=== PATIENT | female | born 1955 | race Caucasian/White ===

== ENCOUNTER 2020-01-14 10:55 | Outpatient (CLI) | payer MEDICARE, MEDICAID, SELFPAY ==
--- NOTE | 2020-01-14 11:00 | CT_ITS ---
WS: [id number] CT CHEST TECHNIQUE: Noncontrast CT of the chest with coronal and sagittal reformatted images. CLINICAL INFORMATION: CHRONIC COUGH COMPARISON: None. DLP: 353.[address] scans at [facility] use at least one of these dose optimization techniques: automat ed exposure control; mA and/or kV adjustment per patient size (includes targeted exams where dose is matched to clinical indication); or iterative reconstruction. FINDINGS: Mild chronic emphysematous changes. Tiny bilateral pleural effusions with slight atelectasis in the l ewelina bases. No acute pulmonary infiltrates. No focal consolidation. No mediastinal or hilar lymphadeno bronwyn. No axillary lymphadenopathy. Slightly ectatic aortic arch measuring 2.8 cm. Normal ascending t horacic aorta. Normal descending thoracic aorta. Normal GE junction. Low-attenuation lesion right hep atic lobe likely hepatic cyst measuring [address]/CT chest wo con [id number] IMPRESSION: 1. Mild chronic emphysematous changes. 2. Trace pleural fluid bilaterally with slight atelectasis in the lung bases. 3. No focal pneumonia. 4. No mediastinal or hilar lymphadenopathy. 5. Slightly ectatic aortic arch measuring 2.8 cm.
== END 2020-01-14 10:56 | disposition home or self-care (01) ==
PROVIDERS: Family Provider Family Medicine; PCP Family Medicine; Visit Provider Family Medicine
DX: R05 Cough (principal); I77.819 Aortic ectasia, unspecified site
CPT/HCPCS: 71250

== ENCOUNTER 2020-01-28 11:07 | Emergency (ER) | payer MEDICARE, MEDICAID, SELFPAY ==
[2020-01-28 11:10] VITALS: BP 134/77; PULSE 109; RESP 18; TEMP 36.8; O2SAT 93; BMI 27.4
--- NOTE | 2020-01-28 11:48 | XRR_ITS ---
PROCEDURE INFORMATION: Exam: XR Chest, 2 Views Exam date and time: 01/28/2020 12:16 PM Age: 64 years old Clinical indication: Cough TECHNIQUE: Imaging protocol: XR of the chest Views: 2 views. COMPARISON: No relevant prior studies available. FINDINGS: Lungs: Emphysematous change, interstitial prominence, and mild left basilar airspace disease. Pleural space: No pleural effusion. Heart/Mediastinum: No cardiomegaly. Bones/joints: Mild degenerative change . Other findings: Tracheobronchial calcification . XR/XR chest 2V* [id number] IMPRESSION: Emphysematous change, interstitial prominence, and mild left basilar airspace disease.
--- NOTE | 2020-01-28 12:18 | ECG_ITS ---
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 Measurements Intervals [place] Rate: 93 P: 50 [place]: 186 QRS: -26 QRSD: 96 T: 62 QT: 362 QTc: 451 Interpretive Statements SINUS RHYTHM BORDERLINE LEFT AXIS DEVIATION [QRS AXIS < -20] MINIMAL VOLTAGE CRITERIA FOR LVH, CONSIDER NORMAL VARIANT [MEETS CRITERIA IN ONE OF: R(aVL), S(V1), R(V5), R(V5/V6)+S(V1)] NONSPECIFIC T-WAVE ABNORMALITY No previous ECG available for comparison Electronically Signed On 01-28-2020 18:26:39 CDT by Lexus Marin M.D. [id number]
--- NOTE | 2020-01-28 12:19 | ED_ITS ---
HPI - SOB/Dyspnea General: Chief Complaint: Shortness of Breath/Dyspnea Stated Complaint: cough Time Seen by Provider: 01/28/20 12:17 Source: patient Mode of arrival: ambulatory Limitations: no limitations History of Present Illness: HPI Narrative: Patient comes in with persistent cough for the last month. Patient has been evaluated by pulmonology for her concerns and has also seen her primary care starting about a month ago. Patient and spouse both report seeing someone about 5 times. Patient appears well. Patient appears in no acute distress. Review of Systems General: Reports: 10 or more systems reviewed and unremarkable except in HPI and below Resp: Reports: non-productive cough PFS ED PFSH: Medical History (Updated 01/28/20 @ 13:33 by DONNA Crabtree) Anxiety Cataract Depression Diabetes mellitus Fibromyalgia GERD (gastroesophageal reflux disease) Hyperlipidemia Hypotension Idiopathic Parkinson's disease Paroxysmal supraventricular tachycardia TMJ (temporomandibular joint disorder) Tremor Trochanteric bursitis of right hip Surgical History H/O dilation and curettage H/O tubal ligation History of appendectomy History of cholecystectomy History of hysterectomy Hx of cataract surgery Family History Grandmother Diabetes Social History Smoking and tobacco status: never smoked Second hand smoke exposure: Yes Alcohol intake: never Lives independently: Yes Household members: spouse Marital status: Current occupational status: disabled History of recent travel: No Current gender identity: Female Physical Exam Const: COMMON NORMALS: no acute distress and patient oriented x3 GENERAL APPEARANCE: cooperative HENMT: COMMON NORMALS: normocephalic and Normal external nose present HEAD & SCALP: normal to inspection and normocephalic NOSE: Normal external nose present MOUTH: Normal oral and palatal mucosa present THROAT: posterior oropharynx normal Eye: GENERAL EYE: appearance normal, both eyes and all related structures Neck/C-Spine: COMMON NORMALS: full ROM Lymph: LYMPHATIC: no lymphadenopathy noted Chest: COMMONS NORMALS: normal inspection of the chest Resp: COMMON NORMALS: normal respiratory effort EFFORT & INSPECTION: Yes able to speak in complete sentences Cardio: COMMON NORMALS: regular rate and regular rhythm RATE: regular rate RHYTHM: regular rhythm GI: COMMON NORMALS: non-tender : COMMON NORMALS: Yes no CVA tenderness BLADDER/KIDNEY EXAM: Yes no CVA tenderness Back/Pelvis: COMMON NORMALS: no CVA tenderness and thoracic and lumbar spine normal to inspection Extremity: COMMON NORMALS: normal to inspection Neuro: COMMON NORMALS: patient oriented x3 and moves all extremities Psych: COMMON NORMALS: mental status grossly normal and cooperative Skin: COMMON NORMALS: no rashes or lesions noted GENERAL SKIN EXAM: no rashes or lesions noted Course Vital Signs: Vital signs: Vital Signs Temperature 98.3 F 01/28/20 11:10 Pulse Rate 109 H 01/28/20 11:10 Respiratory Rate 18 01/28/20 11:10 Blood Pressure 134/77 01/28/20 11:10 Pulse Oximetry 93 01/28/20 11:10 MDM - SOB/Dyspnea MDM Narrative: Medical decision making narrative: Patient comes in today for persistent cough over the last month. Patient has been treated with azithromycin and a previous antibiotic without much relief. Patient is also seen the home day care provider and has thought to have may be a viral bronchitis that is persisting with the cough or possible reflux. Exam today notes some crackles in the left base, heart rates regular. Vital signs are normal. Skin is warm and dry color is pink. Differential diagnosis includes CHF, pneumonia, viral bronchitis, lower respiratory infection. Chest x-ray noted a airspace disease in the left lower lung which review to the previous months x-ray was kind of similar but had made some changes since then. However review of the CT scan done on the that noted no pneumonia. I suspect patient may have had a bout of pneumonia in that left lower lung however it may just be secondary to a viral respiratory infection. Today I will give the patient 10 mg of dexamethasone to help with inflammation start her on some ipratropium which is been shown to help with chronic persistent cough after viral bronchitis, and treat with 7 days of doxycycline due to the abnormality in the chest x-ray. Patient reported understanding and agreed to plan with recommendations for follow-up in 1 week. Lab Data: Labs: Lab Results 01/28/20 01/28/20 01/28/20 Range/Units 12:25 12:25 12:25 WBC 9.7 (4.0-10.0) 10^3/ uL RBC 4.03 L (4.1-5.3) 10^6/u L Hgb 12.2 (11.5-15.3) g/dL Hct 38.8 (37.0-47.0) % MCV 96.3 (81-99) fL MCH 30.3 (28.0-34.0) pg MCHC 31.4 (30.0-36.0) g/dL RDW 14.3 (12.1-15.1) % Plt Count 257 (130-400) 10^3/c mm MPV 11.5 H (7.4-10.4) fL Neut % (Auto) 78.0 % Lymph % (Auto) 12.9 % [place] % (Auto) 6.0 % Eos % (Auto) 2.5 % Baso % (Auto) 0.3 % Neut # (Auto) 7.6 (1.8-7.7) 10^3/u L Lymph # (Auto) 1.3 (0.8-4.8) 10^3/u L [place] # (Auto) 0.6 (0.2-0.9) 10^3/u L Eos # (Auto) 0.2 (0.0-0.8) 10^3/u L Baso # (Auto) 0.0 (0.0-0.1) 10^3/u L Nucleated RBC % (a uto) 0 % Nucleated RBCs # 0.0 /100WBC Sodium 145 (136-145) mmol/L Potassium 4.2 (3.5-5.1) mmol/L Chloride 106 (98-107) mmol/L Carbon Dioxide 24 (22-29) mmol/L Anion Gap 19.2 H (5-19) BUN 19 (8-23) mg/dL Creatinine 0.6 (0.5-0.9) mg/dL GFR Calculation 100.3 (90-130) mL/min Glucose 182 H (65-115) mg/dL Calculated Osmolal ity 301 H (285-295) mOsm/k g Calcium 10.3 (8.5-10.5) mg/dL Magnesium 1.7 (1.7-2.3) mg/dL Total Bilirubin 0.3 (0.15-1.2) mg/dL AST 19 (0-32) U/L ALT 10 (0-33) U/L Alkaline Phosphata se 48 (35-105) IU/L Troponin T Baselin e 6 (0-10) ng/L NT-Pro-B Natriuret Pep 31 (0-125) pg/mL Total Protein 7.0 (6.6-8.7) g/dL Albumin 5.1 (3.5-5.2) g/dL Globulin 1.9 (1.3-4.6) g/dL TSH 1.44 (0.27-4.20) uIU/ mL EKG Data^: EKG 1: Attestation: I personally reviewed and interpreted this EKG as follows: (1300, sinus rhythm, regular rate 93 bpm, no ectopy or ST elevation) Discharge Plan Discharge Patient Disposition: Home, Self-Care Clinical Impression: Chronic cough, Bronchitis Condition: Stable Prescriptions: New Atrovent HFA 17 mcg/actuation HFA aerosol inhaler 2 inh INHALATION Q6H Qty: 12.9 RF: 0 doxycycline hyclate 100 mg capsule 100 mg PO BID 7 Days Qty: 14 RF: 0 Tessalon Perles 100 mg capsule 100 mg PO TID PRN (Reason: cough) Qty: 20 RF: 0 No Action cetirizine [All Day Allergy (cetirizine)] 10 mg tablet 5 mg PO DAILY RF: 0 Belsomra 10 mg tablet 10 mg PO DAILY RF: 0 metformin 500 mg tablet 500 mg PO BID RF: 0 pregabalin [Lyrica] 100 mg capsule 100 mg PO TID RF: 0 digoxin [Lanoxin] 125 mcg (0.125 mg) tablet 125 mcg PO DAILY RF: 0 gemfibrozil 600 mg tablet 600 mg PO BID RF: 0 carbidopa-levodopa 50-200 mg tablet extended release 2 tab PO BID RF: 0 paroxetine HCl 20 mg tablet 20 mg PO DAILY RF: 0 Lantus Solostar U-100 Insulin 100 unit/mL (3 mL) insulin pen 20 unit SUBCUT DAILY RF: 0 albuterol sulfate [ProAir HFA] 90 mcg/actuation HFA aerosol inhaler 2 puff INHALATION Q6H PRNRF: 0 promethazine-DM 6.25-15 mg/5 mL syrup 10 ml PO Q6H PRNRF: 0 alprazolam 1 mg tablet 1 mg PO TID PRNRF: 0 quetiapine [Seroquel] 25 mg tablet 50 mg PO DAILY RF: 0 flecainide 50 mg tablet 50 mg PO Q12H RF: 0 omeprazole 20 mg capsule,delayed release(DR/EC) 20 mg PO BID 90 Days Qty: 180 RF: 3 Discharge Orders: Discharge Order (Routine); Ordered 01/28/20 Ordered By: Brian Zabala Referrals: Mannie Hart MD [Primary Care Provider] - Discharge Diet: Usual diet Discharge Activity: Increase activity as tolerated Patient Instructions: Acute Cough (ED) Activity Restrictions/Additional Instructions: Drink plenty of fluids with medication. Healthy diet and activity. Follow-up with primary care in 1 week. Return to the ER for high fever or worsening shortness of breath. Coding Level of Care Code ED Side Splitter for Zaida Mead Exam Comprehensive
[2020-01-28 12:33] LABS: Basophils % 0.3 %; Eosinophils # 0.2 10^3/uL (0.0-0.8); Eosinophils % 2.5 %; Hematocrit 38.8 % (37.0-47.0); Hemoglobin 12.2 g/dL (11.5-15.3); Lymphocytes # 1.3 10^3/uL (0.8-4.8); Lymphocytes % 12.9 %; Mean Corpuscular HGB Conc 31.4 g/dL (30.0-36.0); Mean Corpuscular Hemoglobin 30.3 pg (28.0-34.0); Mean Corpuscular Volume 96.3 fL (81-99); Mean Platelet Volume 11.5 fL (7.4-10.4); Monocytes # 0.6 10^3/uL (0.2-0.9); Neutrophils # 7.6 10^3/uL (1.8-7.7); Nucleated Red Blood Cells % 0 %; Platelet Count 257 10^3/cmm (130-400); Red Blood Count 4.03 10^6/uL (4.1-5.3); Red Cell Distribution Width 14.3 % (12.1-15.1); White Blood Count 9.7 10^3/uL (4.0-10.0)
[2020-01-28 12:52] LABS: Troponin(5th) Baseline 6 ng/L (0-10)
[2020-01-28 12:59] LABS: Alanine Aminotransferase 10 U/L (0-33); Albumin Level 5.1 g/dL (3.5-5.2); Alkaline Phosphatase 48 IU/L (35-105); Anion Gap 19.2 (5-19); Aspartate Amino Transferase 19 U/L (0-32); Blood Urea Nitrogen 19 mg/dL (8-23); Calcium 10.3 mg/dL (8.5-10.5); Carbon Dioxide 24 mmol/L (22-29); Chloride 106 mmol/L (98-107); Globulin 1.9 g/dL (1.3-4.6); Glomerular Filtration Rate 100.3 mL/min (90-130); Glucose 182 mg/dL (65-115); Magnesium 1.7 mg/dL (1.7-2.3); NT Pro B Type Natriuretic Pept 31 pg/mL (0-125); Osmolality Calculated 301 mOsm/kg (285-295); Potassium 4.2 mmol/L (3.5-5.1); Sodium 145 mmol/L (136-145); Thyroid Stimulating Hormone 1.44 uIU/mL (0.27-4.20); Total Bilirubin 0.3 mg/dL (0.15-1.2)
[2020-01-28] MEDS: dexamethasone 10 mg/mL INJ IM (13:45)
[2020-01-28 14:12] VITALS: BP 136/74; PULSE 72; RESP 18; O2SAT 98
== END 2020-01-28 14:14 | disposition home or self-care (01) ==
PROVIDERS: Emergency Medicine; Emergency Provider Nurse Practitioner Family; Family Provider Family Medicine; PCP Family Medicine
DX: J40 Bronchitis, not specified as acute or chronic (principal); Z79.4 Long term (current) use of insulin; E11.9 Type 2 diabetes mellitus without complications; E78.5 Hyperlipidemia, unspecified; G20 Parkinson's disease; Z77.22 Contact with and (suspected) exposure to environmental tobacco smoke (acute) (chronic)
CPT/HCPCS: 12345; 36415; 71046; 80053; 83735; 83880; 84443; 84484; 85025; 93005; 96372; 99282; 99284; J1100

== ENCOUNTER 2020-02-14 11:20 | Outpatient (CLI) | payer MEDICARE, MEDICAID, SELFPAY ==
--- NOTE | 2020-02-14 11:30 | FL_ITS ---
WS: [id number] MODIFIED BARIUM SWALLOW HISTORY: Chronic cough. FLUOROSCOPY TIME: 1.8 minutes. Modified barium swallow was performed by the speech pathologist. Fluoroscopy was provided with the pa tient in a lateral projection. Multiple food consistencies were provided. Patient swallowed all food consistencies and barium without difficulty. No aspiration. Possible laryn geal penetration noted but very briefly. Barium tablet was swallowed without difficulty. FL/FL barium swallow modifd [id number] IMPRESSION: No aspiration. No significant swallowing difficulties. Please see speech therapist report also for recommendations.
== END 2020-02-14 11:21 | disposition home or self-care (01) ==
LOC: RAD 11:23
PROVIDERS: Family Provider Family Medicine; PCP Family Medicine; Visit Provider Internal Medicine Critical Care Medicine
DX: R05 Cough (principal)
CPT/HCPCS: 74230; 92611

== ENCOUNTER 2020-09-04 05:39 | Inpatient (IN) | payer MEDICARE, MEDICAID, SELFPAY ==
[2020-09-04] VITALS (16 sets, daily range): BP systolic 94–128; BP diastolic 53–64; PULSE 65–87; RESP 14–18; TEMP 36.4–37; O2SAT 89–95; BMI 27.4
--- NOTE | 2020-09-04 05:45 | XR_ITS ---
WS: [id number] Exam: XR chest 1V portable [id number] Date/Time of Exam: 09/04/2020 6:18 AM Reason For Exam: cp Comparison 12/24/2019. The lungs are fully expanded and clear. Chronic changes in the left base. No pleural effusions. Irina l cardiomediastinal structures and bony elements. Monitoring leads superimpose the chest. XR/XR chest 1V portable [id number] IMPRESSION: 1. Chronic left basal changes. No acute process noted.
--- NOTE | 2020-09-04 05:45 | ECG_ITS ---
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 Measurements Intervals [place] Rate: 62 P: 19 UT: 199 QRS: -23 QRSD: 84 T: 79 QT: 418 QTc: 425 Interpretive Statements SINUS RHYTHM WITH SINUS ARRHYTHMIA BORDERLINE LEFT AXIS DEVIATION [QRS AXIS < -20] NONSPECIFIC T-WAVE ABNORMALITY Compared to ECG 01/28/2020 12:55:01 No significant changes Electronically Signed On 09-04-2020 18:03:14 CARDIOPULMONARY SUPERVISOR by Yris Whiting M.D. [id number] f
[2020-09-04 05:51] LABS: Basophils % 0.2 %; Eosinophils # 0.4 10^3/uL (0.0-0.8); Hematocrit 42.2 % (37.0-47.0); Hemoglobin 13.1 g/dL (11.5-15.3); Lymphocytes # 1.8 10^3/uL (0.8-4.8); Lymphocytes % 21.2 %; Mean Corpuscular Hemoglobin 29.1 pg (28.0-34.0); Mean Corpuscular Volume 93.8 fL (81-99); Mean Platelet Volume 11.3 fL (7.4-10.4); Monocytes # 0.4 10^3/uL (0.2-0.9); Monocytes % 4.4 %; Neutrophils # 6.07 10^3/uL (1.8-7.7); Neutrophils % 70.1 %; Nucleated Red Blood Cells % 0 %; Platelet Count 238 10^3/cmm (130-400); Red Cell Distribution Width 13.2 % (12.1-15.1); White Blood Count 8.7 10^3/uL (4.0-10.0)
--- NOTE | 2020-09-04 05:51 | ED_ITS ---
HPI - Chest Pain General: Chief Complaint: Chest Pain Stated Complaint: CHEST PAIN Time Seen by Provider: 09/04/20 05:44 History of Present Illness: HPI narrative: 65 yo female presents with complaints of chest pain. Pain begins in his center to the left side of her chest and radiates into her back it does not go into her neck or arm. She still has a little bit of discomfort now for the most part is resolved she has had a couple other episodes in the past few days. She not had any fever sweats or chills nausea vomiting or diarrhea or shortness of breath. MD complaint: chest heaviness and chest discomfort Onset (ago): hour(s) Timing of current episode: episodic Onset: during rest Pain location: left chest Pain radiation: back Severity: moderate Quality: heaviness Relieving factors: nothing Exacerbating factors: nothing Associated symptoms: Deny abdominal pain, diaphoresis, dyspnea, fever(s), leg edema, nausea, palpitations, sense of impending doom, syncope or vomiting Treatment prior to arrival: none Review of Systems Const: Denies: fever(s) or diaphoresis ENMT: Denies: throat pain, ear or mastoid pain, nasal discharge or nasal co ngestion Card: Denies: palpitations or syncope Resp: Denies: dyspnea GI: Denies: abdominal pain, nausea or vomiting : Denies: flank pain, difficulty voiding, dysuria, urinary frequency or urinary urgency Skin/Breast: Denies: rash or pruritus [facility] ED PFSH: Medical History Anxiety Cataract Chronic cough Depression Diabetes mellitus Diabetic neuropathy Fibromyalgia GERD (gastroesophageal reflux disease) Hyperlipidemia Hypotension Idiopathic Parkinson's disease Insomnia Paroxysmal supraventricular tachycardia SVT (supraventricular tachycardia) TMJ (temporomandibular joint disorder) Tremor Trochanteric bursitis of right hip Surgical History H/O dilation and curettage H/O tubal ligation History of appendectomy History of cholecystectomy History of hysterectomy History of neck surgery Hx of cataract surgery Family History Grandmother Diabetes Social History Smoking and tobacco status: never smoked Second hand smoke exposure: Yes Alcohol intake: never Lives independently: Yes Household members: spouse Marital status: Current occupational status: disabled History of recent travel: No Current gender identity: Female Physical Exam Const: COMMON NORMALS: no acute distress GENERAL APPEARANCE: cooperative and comfortable ORIENTATION/CONSCIOUSNESS: Yes awake, Yes oriented to person, Yes oriented to place and Yes oriented to time HENMT: COMMON NORMALS: normocephalic, atraumatic and hearing grossly normal bilaterally HEAD & SCALP: normocephalic and atraumatic Neck/C-Spine: COMMON NORMALS: no JVD Resp: COMMON NORMALS: normal respiratory effort, No retractions, No use of accessory muscles and clear to auscultation bilaterally AUSCULTATION: clear t o auscultation bilaterally Cardio: COMMON NORMALS: no JVD, regular rate, regular rhythm and No murmurs present (Cardio) RATE: regular rate RHYTHM: regular rhythm GI: COMMON NORMALS: Soft to palpation and No hepatosplenomegaly present AUSCULTATION: Yes normoactive bowel sounds PALPATION: Yes Soft to palpation, No Tenderness to palpation present (GI), No Guarding due to palpation present (GI) and Yes No hepatosplenomegaly present Extremity: COMMON NORMALS: normal to inspection, capillary refill normal, no clubbing, cyanosis or edema, no calf tenderness and no pedal edema Neuro: SENSORIUM/ORIENTATION: Yes oriented to person, Yes oriented to place and Yes oriented to time Skin: COMMON NORMALS: no rashes or lesions noted GENERAL SKIN EXAM: no rashes or lesions noted Course Vital Signs: Vital signs: Vital Signs Temperature 97.5 F L 09/04/20 15:25 Pulse Rate 77 09/04/20 15:25 Respiratory Rate 18 09/04/20 15:25 Blood Pressure 97/58 09/04/20 15:25 Pulse Oximetry 89 L 09/04/20 15:25 MDM - Chest Pain 2 MDM Narrative: Medical decision making narrative: Is a heart score of 4 having chest pain we will go ahead and admit her for further evaluation. Lab Data: Labs: Lab Results 09/04/20 09/04/20 09/04/20 Range/Units 05:43 05:43 05:43 WBC 8.7 (4.0-10.0) 10^3/ uL RBC 4.50 (4.1-5.3) 10^6/u L Hgb 13.1 (11.5-15.3) g/dL Hct 42.2 (37.0-47.0) % MCV 93.8 (81-99) fL MCH 29.1 (28.0-34.0) pg MCHC 31.0 (30.0-36.0) g/dL RDW 13.2 (12.1-15.1) % Plt Count 238 (130-400) 10^3/c mm MPV 11.3 H (7.4-10.4) fL Neut % (Auto) 70.1 % Lymph % (Auto) 21.2 % [place] % (Auto) 4.4 % Eos % (Auto) 4.0 % Baso % (Auto) 0.2 % Neut # (Auto) 6.07 (1.8-7.7) 10^3/u L Lymph # (Auto) 1.8 (0.8-4.8) 10^3/u L [place] # (Auto) 0.4 (0.2-0.9) 10^3/u L Eos # (Auto) 0.4 (0.0-0.8) 10^3/u L Baso # (Auto) 0.0 (0.0-0.1) 10^3/u L Nucleated RBC % (a uto) 0 % Nucleated RBCs # 0.0 /100WBC Sodium 143 (136-145) mmol/L Potassium 3.9 (3.5-5.1) mmol/L Chloride 101 (98-107) mmol/L Carbon Dioxide 29 (22-29) mmol/L Anion Gap 16.9 (5-19) BUN 11 (8-23) mg/dL Creatinine 0.7 (0.5-0.9) mg/dL GFR Calculation 83.7 L (90-130) mL/min Glucose 117 H (65-115) mg/dL Calculated Osmolal ity 296 H (285-295) mOsm/k g Calcium 9.3 (8.5-10.5) mg/dL Total Bilirubin 0.4 (0.15-1.2) mg/dL AST 21 (0-32) U/L ALT 22 (0-33) U/L Alkaline Phosphata se 82 (35-105) IU/L Troponin T Baselin e 6 (0-10) ng/L Troponin T 120 Min [place] (0-10) ng/L Delta Troponin T (0-10) ABS# Total Protein 7.3 (6.6-8.7) g/dL Albumin 4.4 (3.5-5.2) g/dL Globulin 2.9 (1.3-4.6) g/dL Digoxin (0.6-1.2) ng/mL 09/04/20 09/04/20 Range/Units 05:43 07:50 WBC (4.0-10.0) 10^3/ uL RBC (4.1-5.3) 10^6/u L Hgb (11.5-15.3) g/dL Hct (37.0-47.0) % MCV (81-99) fL MCH (28.0-34.0) pg MCHC (30.0-36.0) g/dL RDW (12.1-15.1) % Plt Count (130-400) 10^3/c mm MPV (7.4-10.4) fL Neut % (Auto) % Lymph % (Auto) % [place] % (Auto) % Eos % (Auto) % Baso % (Auto) % Neut # (Auto) (1.8-7.7) 10^3/u L Lymph # (Auto) (0.8-4.8) 10^3/u L [place] # (Auto) (0.2-0.9) 10^3/u L Eos # (Auto) (0.0-0.8) 10^3/u L Baso # (Auto) (0.0-0.1) 10^3/u L Nucleated RBC % (a uto) % Nucleated RBCs # /100WBC Sodium (136-145) mmol/L Potassium (3.5-5.1) mmol/L Chloride (98-107) mmol/L Carbon Dioxide (22-29) mmol/L Anion Gap (5-19) BUN (8-23) mg/dL Creatinine (0.5-0.9) mg/dL GFR Calculation (90-130) mL/min Glucose (65-115) mg/dL Calculated Osmolal ity (285-295) mOsm/k g Calcium (8.5-10.5) mg/dL Total Bilirubin (0.15-1.2) mg/dL AST (0-32) U/L ALT (0-33) U/L Alkaline Phosphata se (35-105) IU/L Troponin T Baselin e (0-10) ng/L Troponin T 120 Min [place] 8.93 (0-10) ng/L Delta Troponin T 2.93 (0-10) ABS# Total Protein (6.6-8.7) g/dL Albumin (3.5-5.2) g/dL Globulin (1.3-4.6) g/dL Digoxin 0.7 (0.6-1.2) ng/mL Discharge Plan Discharge Patient Disposition: Admitted As Inpatient Admit Provider: Joshua Pérez Clinical Impression: Chest pain, Diabetes mellitus Condition: Stable Coding Level of Care Code ED Business Unit Director for Milag Fwd Exam Comprehensive
[2020-09-04 06:10] LABS: Digoxin 0.7 ng/mL (0.6-1.2)
[2020-09-04 06:20] LABS: Alanine Aminotransferase 22 U/L (0-33); Albumin Level 4.4 g/dL (3.5-5.2); Alkaline Phosphatase 82 IU/L (35-105); Anion Gap 16.9 (5-19); Aspartate Amino Transferase 21 U/L (0-32); Blood Urea Nitrogen 11 mg/dL (8-23); Calcium 9.3 mg/dL (8.5-10.5); Carbon Dioxide 29 mmol/L (22-29); Chloride 101 mmol/L (98-107); Globulin 2.9 g/dL (1.3-4.6); Glomerular Filtration Rate 83.7 mL/min (90-130); Glucose 117 mg/dL (65-115); Osmolality Calculated 296 mOsm/kg (285-295); Potassium 3.9 mmol/L (3.5-5.1); Sodium 143 mmol/L (136-145); Total Bilirubin 0.4 mg/dL (0.15-1.2); Total Protein 7.3 g/dL (6.6-8.7)
[2020-09-04 06:21] LABS: Troponin(5th) Baseline 6 ng/L (0-10)
--- NOTE | 2020-09-04 07:45 | ECG_ITS ---
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 Measurements Intervals [place] Rate: 69 P: 35 PA: 186 QRS: -22 QRSD: 85 T: 77 QT: 408 QTc: 439 Interpretive Statements SINUS RHYTHM BORDERLINE LEFT AXIS DEVIATION [QRS AXIS < -20] NONSPECIFIC T-WAVE ABNORMALITY Compared to ECG 09/04/2020 05:45:06 Sinus arrhythmia no longer present T-wave abnormality still present Electronically Signed On 09-04-2020 18:11:03 STEAM LOCOMOTIVE FIRER/FIREMAN by Yris Whiting M.D. [id number]
--- NOTE | 2020-09-04 08:02 | PC.NURSE ---
2nd EKG done by information technology advisor and given to ER provider
[2020-09-04 08:12] LABS: Troponin 5 2HR 8.93 ng/L (0-10); Troponin 5 2HR Delta 2.93 ABS# (0-10)
[2020-09-04] MEDS: nitroglycerin 1 gm/inch oint Pkt 0.5 INCH TOPICAL ×2 (09:16→15:22)
--- NOTE | 2020-09-04 10:21 | PM.HP ---
Providers/Chief Complaint Admitting Physician: Joshua Pérez MD Primary Care Provider: Mannie Hart MD Chief Complaint: CHEST PAIN History of Present Illness Chelsea Ruvalcaba is a 65 year old female who presents to the hospital with chest discomfort. She reports she was sleeping when she was awoken by discomfort, mid substernal around 4 AM radiating to her back. This was associated with nausea. She also reports it felt sharp, and tight. She had never had this discomfort before and usually has no exertional symptoms. She reports it went away sometime in the emergency department but is not sure why. She believes it might have been due to the nitroglycerin ointment. She denies any blood in her stool or black or tarry stools. She has a history of reflux but no severe reflux symptoms recently. She denies any previous history of coronary disease. She does report history of SVT, for which she is on antiarrhythmics. She is not followed by cardiology. No history of Covid or exposure to it. She is chest pain-free currently. Review of Systems General: Reports: 10 or more systems reviewed and unremarkable except in HPI and below Const: Denies: fever(s) or chills Eyes: Denies: change in vision ENMT: Denies: throat pain Card: Reports: chest pain Resp: Denies: dyspnea GI: Reports: nausea; Denies: abdominal pain : Denies: flank pain Musc: Denies: neck pain Skin/Breast: Denies: rash Neuro: Denies: headache(s) Psych: Reports: anxiety Endo: Denies: polyuria Anders/Lymph: Denies: easy bruising All/Imm: Denies: urticaria Medications/Allergies Home Medications Medication Instructions Recorded Confirmed Last Taken Type albuterol sulfate 90 mcg/actuation 2 puff INHALATION QID PRN 01/17/20 09/04/20 Unknown History aerosol inhaler alprazolam 1 mg tablet 1 mg PO TID PRN 01/17/20 09/04/20 09/03/20 History carbidopa ER 50 mg-levodopa 200 mg 2 tab PO BID@07,16 tab 01/17/20 09/04/20 09/03/20 History tablet,extended release digoxin 125 mcg (0.125 mg) tablet 125 mcg PO DAILY@07 01/17/20 09/04/20 09/03/20 History flecainide 50 mg tablet 50 mg PO Q12H 01/17/20 09/04/20 09/03/20 History insulin glargine 100 unit/mL (3 20 unit SUBCUT DAILY@01/17/20 09/04/20 09/03/20 History mL) subcutaneous pen metformin 500 mg tablet 500 mg PO BID@07,16 01/17/20 09/04/20 09/03/20 History paroxetine HCl 20 mg tablet 20 mg PO DAILY@07 01/17/20 09/04/20 09/03/20 History pregabalin 100 mg capsule See Rx Instructions .ROUTE .COMPLEX 01/17/20 09/04/20 09/03/20 History quetiapine 25 mg tablet 50 mg PO DAILY@ tab 01/17/20 09/04/20 09/03/20 History suvorexant 10 mg tablet 10 mg PO DAILY@ tab 01/17/20 09/04/20 09/03/20 History codeine 10 mg-guaifenesin 100 mg/5 10 ml PO Q6H PRN #1200 ml 04/22/20 09/04/20 09/03/20 Rx mL oral liquid acetaminophen [Tylenol Extra 1,000 mg PO PRN 09/04/20 09/04/20 Unknown History Strength] budesonide-formoterol [Symbicort] 2 puff INHALATION BID 09/04/20 09/04/20 Unknown History ipratropium-albuterol 3 ml INHALATION Q6H PRN 09/04/20 09/04/20 Unknown History levalbuterol HCl 2.5 mg INHALATION Q6H PRN 09/04/20 09/04/20 Unknown History omeprazole 20 mg PO BID PRN 09/04/20 09/04/20 Unknown History rosuvastatin 10 mg PO DAILY@09/04/20 09/04/20 09/03/20 History Allergies Allergy/AdvReac Type Severity Reaction Status Date / Time cephalexin [From Keflex] Allergy Severe ALGY-Rash Verified 09/04/20 05:49 Cephalosporins Allergy Severe ALGY-Rash Verified 09/04/20 05:49 PFSH Acute PFSH: Medical History (Updated 09/04/20 @ 10:28 by Joshua Pérez MD) Anxiety Cataract Chronic cough Depression Diabetes mellitus Diabetic neuropathy Fibromyalgia GERD (gastroesophageal reflux disease) Hyperlipidemia Hypotension Idiopathic Parkinson's disease Insomnia Paroxysmal supraventricular tachycardia SVT (supraventricular tachycardia) TMJ (temporomandibular joint disorder) Tremor Trochanteric bursitis of right hip Surgical History (Updated 09/04/20 @ 10:25 by Joshua Pérez MD) H/O dilation and curettage H/O tubal ligation History of appendectomy History of cholecystectomy History of hysterectomy History of neck surgery Hx of cataract surgery Family History Grandmother Diabetes Social History Smoking and tobacco status: never smoked Second hand smoke exposure: Yes Alcohol intake: never Lives independently: Yes Household members: spouse Marital status: Current occupational status: disabled History of recent travel: No Current gender identity: Female Vitals/I&O/Wt Last Vital Signs Temp 98.4 F 09/04/20 05:44 Pulse 77 09/04/20 10:19 Resp 14 09/04/20 10:19 BP 104/63 09/04/20 10:19 Pulse Ox 95 09/04/20 10:19 Weight last 48 hrs Weight 68.039 kg Physical Exam Narrative: EXAM NARRATIVE: General exam is a white female, no apparent distress HEENT: Pupils equally round. Oropharynx clear. Tongue is midline. Mucous membranes moist. Neck is supple no lymphadenopathy or thyromegaly Cardiovascular regular rate and rhythm without murmur. No S3 or S4 Lungs are clear no wheezing or crackles Abdomen is soft with positive bowel sounds. No obvious organomegaly was deferred Extremities no cyanosis clubbing or edema, cap refill brisk Skin no rash Neuro no obvious focal deficits. Data : 09/04/20 05:43 09/04/20 05:43 Other data: Echocardiogram 2009 demonstrated mild to moderate mitral regurgitation, preserved EF TSH 6 months ago normal Troponin with repeat of 8.9 Calcium normal LFTs normal Digoxin level 0.7 EKG demonstrates normal sinus rhythm, left axis deviation, nonspecific ST-T wave changes Chest x-ray per my read no infiltrate A&P Assessment and plan (1) Chest pain: Observation Serial troponins and EKGs Echocardiogram. Patient with past history of mild to moderate mitral regurgitation Nuclear stress test, Lexiscan sestamibi in the morning Monitor for any recurrent symptoms Continue nitroglycerin ointment, statin Add aspirin Telemetry. Episode could also have been related to arrhythmia considering past history of SVT Nitroglycerin, morphine if pain recurs Status: Acute (2) Paroxysmal supraventricular tachycardia: Continue digoxin, flecainide TSH has been recently checked and normal Status: Acute (3) Diabetes mellitus: Sliding scale insulin Status: Acute (4) GERD (gastroesophageal reflux disease): Chest discomfort could be related to reflux. Add Protonix 40 mg twice daily Status: Acute (5) Chronic cough: Currently on treatment for asthma/COPD by pulmonary Status: Inactive Additional A&P Information Multiple other medical problems as outlined in past medical history Full code Lovenox for DVT prophylaxis Attestations Medical Necessity Statement*: Will need less than 2 midnight stay for evaluation and treatment of chest pain. 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
--- NOTE | 2020-09-04 10:33 | USCV_ITS ---
Chelsea Ruvalcaba Age: 65 Gender: F : 1955 Exam Date: 09/04/2020 14:30 Ordering Phys: Joshua Pérez MD Technologist: Marlon Encarnacion [place] [facility] [place]: CHEST PAIN BP: 94 / 58 HR: 71 Rhythm: Sinus Technical Quality: Good MEASUREMENTS (Male / Female) Normal Values 2D ECHO LV Diastolic Diameter PLAX 3.5 cm 4.2 - 5.9 / 3.9 - 5.3 cm LV Systolic Diameter PLAX 2.4 cm IVS Diastolic Thickness 1.1 cm 0.6 - 1.0 / 0.6 - 0.9 cm IVS Systolic Thickness 1.2 cm LVPW Diastolic Thickness 1.2 cm 0.6 - 1.0 / 0.6 - 0.9 cm LVPW Systolic Thickness 1.8 cm LV Ejection Fraction 2D Teich 62.9 % LV Ejection Fraction MOD 2C 75.0 % LV Ejection Fraction 2C AL 75.2 % LA Diameter 3.2 cm LA Width 3.1 cm LA Height 3.4 cm RA Width 3.0 cm RA Height 4.4 cm Aorta at Sinotubular Diameter 2.9 cm M-MODE LV Diastolic Diameter MM 4.6 cm 4.2 - 5.9 / 3.9 - 5.3 cm LV Systolic Diameter MM 3.0 cm LV Ejection Fraction MM Teich 65.7 % IVS Diastolic Thickness MM 1.6 cm 0.6 - 1.0 / 0.6 - 0.9 cm IVS Systolic Thickness MM 1.9 cm LVPW Diastolic Thickness MM 0.6 cm 0.6 - 1.0 / 0.6 - 0.9 cm LVPW Systolic Thickness MM 1.5 cm Aortic Annulus Diameter 3.0 cm LA Ao Ratio MM 1.1 MV E Point Septal Separation 0.8 cm DOPPLER AV Peak Velocity 104.0 cm/s LVOT Peak Velocity 78.0 cm/s MV Area PHT 5.6 cm squared Mitral E to A Ratio 0.9 MV E' Velocity 35.0 cm/s Mitral E to MV E' Ratio 9.6 Mitral E to LV E' Lateral Ratio 8.9 Mitral E to LV E' Septal Ratio 10.4 TR Peak Velocity 183.3 cm/s TR Peak Gradient 13.4 mmHg Right Atrial Pressure 3.0 mmHg Pulmonary Artery Systolic Pressu 16.4 mmHg PV Peak Velocity 73.0 cm/s RV Acceleration Time 0.1 s RV Ejection Time 0.3 s RV AcT/ET 0.3 FINDINGS Left Ventricle Normal left ventricular size, systolic function and wall thickness, with no regional wall motion abnormalities. Left ventricular ejection fraction is estimated at 65 %. Normal diastolic function. Right Ventricle Normal right ventricular size and systolic function. Right ventricular systolic pressure 26 mmHg. Right Atrium Normal right atrial size. Left Atrium Normal left atrial size. Mitral Valve Mildly thickened mitral valve. No mitral valve stenosis. Mild mitral valve regurgitation. Aortic Valve Structurally normal trileaflet aortic valve. No aortic valve stenosis. Trace aortic valve regurgitation. Tricuspid Valve Structurally normal tricuspid valve. No tricuspid valve stenosis. Trace to mild tricuspid valve regurgitation. Pulmonic Valve Structurally normal pulmonic valve. No pulmonary valve stenosis. Trace pulmonary valve regurgitation. Pericardium No pericardial effusion. Normal-sized inferior vena cava. Aorta Normal size aortic root and proximal ascending aorta. CONCLUSIONS 1. Normal left ventricular size, systolic function and wall thickness, with no regional wall motion abnormalities. Left ventricular ejection fraction is estimated at 65 %. Normal diastolic function. 2. Normal right ventricular size and systolic function. 3. Pulmonary artery pressure estimated at 26 mmHg. 4. Mild mitral valve regurgitation. 5. No prior similar studies to compare. Lexus Marin MD (Electronically Signed) Final Date: 04 September 2020 16:50 S
[2020-09-04 10:56] LABS: Glucose Point of Care 467 mg/dL (70-110)
[2020-09-04] MEDS: flecainide 100 mg Tablet 50 MG PO (11:58)
[2020-09-04] MEDS: enoxaparin 40 mg/0.4 mL Syringe SUBCUT (11:59)
[2020-09-04] MEDS: pneumococcal (23 valent) SDV 0.5 mL IM (12:04)
[2020-09-04 12:40] LABS: Troponin 5 6HR Delta 0 ng/L (0-12)
[2020-09-04] MEDS: acetaminophen 325 mg Tablet 650 MG PO (15:22)
[2020-09-04] MEDS: pregabalin 100 mg Capsule PO (15:22)
[2020-09-04] MEDS: carbidopa-levodopa ER 50-200mg Tablet 2 EACH PO (16:20)
[2020-09-04] MEDS: morphine 4 mg/mL SDV 1 mL 2 MG IVP (16:25)
[2020-09-04] MEDS: ondansetron 2 mg/ML SDV 2 mL 4 MG IVP (16:27)
[2020-09-04 17:14] LABS: Glucose Point of Care 117 mg/dL (70-110)
[2020-09-04] MEDS: pantoprazole DR 40 mg Tablet PO (17:24)
[2020-09-04 21:21] LABS: Glucose Point of Care 122 mg/dL (70-110)
[2020-09-04] MEDS: pregabalin 100 mg Capsule 200 MG PO (22:36)
[2020-09-04] MEDS: quetiapine 25 mg Tablet 50 MG PO (22:36)
[2020-09-05] VITALS (15 sets, daily range): BP systolic 99–121; BP diastolic 56–73; PULSE 68–98; RESP 15–18; TEMP 36.8–37.1; O2SAT 88–96
[2020-09-05] MEDS: flecainide 100 mg Tablet 50 MG PO ×3 (00:02→20:34)
[2020-09-05] MEDS: acetaminophen 325 mg Tablet 650 MG PO ×2 (02:07→11:36)
[2020-09-05 04:46] LABS: Basophils % 0.3 %; Eosinophils # 0.3 10^3/uL (0.0-0.8); Eosinophils % 2.9 %; Hemoglobin 11.8 g/dL (11.5-15.3); Lymphocytes # 1.5 10^3/uL (0.8-4.8); Lymphocytes % 15.3 %; Mean Corpuscular HGB Conc 31.1 g/dL (30.0-36.0); Mean Corpuscular Hemoglobin 29.5 pg (28.0-34.0); Monocytes # 0.5 10^3/uL (0.2-0.9); Monocytes % 5.3 %; Neutrophils # 7.64 10^3/uL (1.8-7.7); Nucleated Red Blood Cells % 0 %; Platelet Count 212 10^3/cmm (130-400); Red Cell Distribution Width 13.3 % (12.1-15.1); White Blood Count 10.1 10^3/uL (4.0-10.0)
[2020-09-05 05:04] LABS: Alanine Aminotransferase < 5 U/L (0-33); Albumin Level 3.9 g/dL (3.5-5.2); Alkaline Phosphatase 73 IU/L (35-105); Anion Gap 13.3 (5-19); Aspartate Amino Transferase 18 U/L (0-32); Blood Urea Nitrogen 13 mg/dL (8-23); Calcium 8.7 mg/dL (8.5-10.5); Carbon Dioxide 29 mmol/L (22-29); Chloride 105 mmol/L (98-107); Globulin 2.5 g/dL (1.3-4.6); Glomerular Filtration Rate 83.7 mL/min (90-130); Glucose 104 mg/dL (65-115); Osmolality Calculated 296 mOsm/kg (285-295); Potassium 4.3 mmol/L (3.5-5.1); Sodium 143 mmol/L (136-145); Total Bilirubin 0.4 mg/dL (0.15-1.2); Total Protein 6.4 g/dL (6.6-8.7)
--- NOTE | 2020-09-05 06:06 | ECG_ITS ---
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 Interpretive Statements NAME OF STUDY: LEXISCAN SESTAMIBI STRESS TEST INDICATION: Chest Pain PROCEDURE: At the baseline, the blood pressure was 98/65 mmHg with a heart rate of 77 bpm. The electrocardiogram showed normal sinus rhythm, leftward axis. With nonspecific T wave abnormality. The Lexiscan was infused over a period of 20 seconds. A total of 0.4 milligrams of Lexiscan was infused. The stress phase was continued for a total of 5 minutes. Heart rate at the end of the stress phase was 101 bpm with a blood pressure of 96/56 mmHg. The EKG at the peak infusion revealed sinus tachycardia with no significant ST-T wave changes. Sestamibi was injected 20 seconds after the Lexiscan infusion. Blood pressure at the end of the recovery phase was 101/56 mmHg with a heart rate of 98 beats per minute. CONCLUSION: 1. No significant EKG changes with the LexiScan infusion. 2. No LexiScan induced chest pain or cardiac arrhythmia. 3. Normal blood pressure and heart rate response. 4. Sestamibi/sestamibi perfusion scan pending; see separate report. Electronically Signed On 09-05-2020 14:13:51 AIRPLANE TECHNICIAN by Lexus Marin M.D. [id number]
[2020-09-05 06:22] LABS: Glucose Point of Care 105 mg/dL (70-110)
[2020-09-05] MEDS: regadenoson 0.4 Mg/5 ml Syringe IVP (08:18)
--- NOTE | 2020-09-05 10:33 | NMCV_ITS ---
NM janneth perf SPECT r/s* [id number] Chelsea Ruvalcaba Age: 65 Gender: F : 1955 Exam Date: 09/05/2020 07:20 Ordering Phys: Joshua Pérez MD Technologist: RUBIO Shelley Exam Location: [facility] Indications: CHEST PAIN STRESS TEST Please see separate stress test report in [facility] for full findings IMAGE PROTOCOL Rest/Stress 1 Lexiscan Day Radiopharmaceutical Dose (mCi) Administration Site Administered by Rest: Tc-99m 10.9 IV RUBIO Lindo Sestamibi Stress:Tc-99m 32.7 IV RUBIO Lindo Sestamibi Rest: 05-Sep-2020 60 Discovery 630 Stress: 05-Sep-2020 30 Discovery 630 0.4mg Lexiscan. Images obtained in supine and prone position. SPECT RESULTS Technical Quality: Excellent Raw Data Analysis: Normal Image Corrections: No attenuation or motion correction applied Summed Stress Score: 0 Summed Rest Score: 0 Summed Difference Score: 0 PERFUSION FINDINGS SPECT images demonstrate homogeneous tracer distribution throughout the myocardium. FUNCTIONAL RESULTS (calculated via Gated SPECT) Stress Image LV EF (%): 67 Stress EDV (mL):89 TID: 0.86 Stress ESV (mL):29 FUNCTIONAL FINDINGS: The left ventricle is normal in size. Transient Ischemia Dilatation of 0.86. The left ventricular ejection fraction is normal with a value of 67%. There is normal left ventricular wall thickening. No regional wall motion abnormality. Normal end-diastolic and end-systolic volumes. IMPRESSIONS 1. Myocardial perfusion imaging is normal. 2. Overall left ventricular systolic function is normal without regional wall motion abnormalities. 3. The left ventricular ejection fraction is normal with a value of 67%. 4. This study suggests a low likelihood of angiographically significant coronary artery disease. Lexus Marin MD (Electronically Signed) Final Date: 05 September 2020 12:18 S
[2020-09-05] MEDS: atorvastatin 40 mg Tablet PO (10:36)
[2020-09-05] MEDS: PARoxetine 20 mg Tablet PO (10:37)
[2020-09-05] MEDS: digoxin 125 mcg Tablet PO (10:37)
[2020-09-05] MEDS: aspirin 325 mg EC Tablet PO (10:37)
[2020-09-05] MEDS: pregabalin 100 mg Capsule 200 MG PO ×2 (10:37→20:16)
[2020-09-05] MEDS: pantoprazole DR 40 mg Tablet PO ×2 (10:38→17:29)
[2020-09-05] MEDS: carbidopa-levodopa ER 50-200mg Tablet 2 EACH PO ×2 (10:41→14:32)
[2020-09-05] MEDS: enoxaparin 40 mg/0.4 mL Syringe SUBCUT (10:42)
[2020-09-05 10:53] LABS: Glucose Point of Care 109 mg/dL (70-110)
[2020-09-05] MEDS: morphine 4 mg/mL SDV 1 mL 2 MG IVP ×2 (12:25→20:15)
--- NOTE | 2020-09-05 12:43 | PC.CHAP ---
Pastoral Care Encounter/Spiritual Assessment Type of Contact [] Declined brusher tender visit [] Patient/Family/Request visit [] Outpatient visit [] Follow-up visit [] Physician referral [] Code/Alert [xx] Routine visit [] Staff referral [] Actively dying [] Patient sleeping [] Family support [] [] Out of room [] Palliative care [] [] Receiving care in room [] Pre-surgical visit [] Trauma [] Long length of stay [] ICU visit [] Other: Relational/Emotional Strength [xx] Patient feels connected with others/family/visitors/staff [] Distress [] Loneliness/isolation [] Abandonment Spirituality of Patient [xx] Person of Ginny [xx] Attends Yazidi of their Ginny [xx] Believes in Prayer [xx] Reads Bible or Shinto materials [] There are Spiritual issues to be addressed Biomedical Analytical Scientist Interventions [xx] Prayer [xx] Active listening [] Non-anxious presence [] Spiritual/emotional support [] Crisis/trauma care [] Spiritual counseling [] Bereavement support [] Provided bereavement packet [xx] Provided Bible/devotional materials [] Provided toy/stuffed animal, coloring book to patient or family member [] Provided Communion [] Anointing/[place] [] Salvation [xx] Completed spiritual assessment [] Other: Impact on Illness or Injury [] Angry [] Fearful [xx] Anxious [] Often cries [] Exhaustion [] Unable to work [] Unable to attend adventist [] Unable to walk/stand [] Unable to read [] Unable to drive [] Unable to eat/drink [] Unable to sleep [] Unable to be with family [] Patient intubated [] Other: Summary Patient stated her called and said he had fallen in the garage earlier this morning and she is very worried about him as he won't go the the doctor and get checked. Patient asked prayer for her first before herself. She is very worried. She does not expect him to visit today and may come only when she is discharged so she won't see his injuries. Patient accepted copy of [employer] devotional. Time spent with patient 14 minutes
--- NOTE | 2020-09-05 13:22 | ECG_ITS ---
[facility] Test Date: 2020-09-05 Pat Name: Chelsea Ruvalcaba Department: Room: 276 Gender: Female Rn X Ray: : 1955 Requested By: Joshua Pope Order Number: [id number] Tripp MD: Lexus Marin M.D. Measurements Intervals [place] Rate: 72 P: 21 NE: 225 QRS: -27 QRSD: 98 T: 70 QT: 399 QTc: 439 Interpretive Statements SINUS RHYTHM WITH FIRST DEGREE AV BLOCK BORDERLINE LEFT AXIS DEVIATION [QRS AXIS < -20] MINIMAL VOLTAGE CRITERIA FOR LVH, CONSIDER NORMAL VARIANT [MEETS CRITERIA IN ONE OF: R(aVL), S(V1), R(V5), R(V5/V6)+S(V1)] NONSPECIFIC T-WAVE ABNORMALITY Compared to ECG 09/04/2020 07:58:53 First degree AV block now present T-wave abnormality still present Electronically Signed On 09-05-2020 22:10:10 VALET PARKING ATTENDANT by Lexus Marin M.D. [id number]
[2020-09-05] MEDS: nitroglycerin 0.4 mg sublingual Tablet SUBLINGUAL ×2 (13:26→13:32)
--- NOTE | 2020-09-05 13:33 | P.PN_ITS ---
Subjective Subjective: Interval history: Chelsea I did not visit with this morning that she was in nuclear imaging. When I walked in this afternoon she was having chest discomfort. She reported her chest hurt, lower substernal. She denied any nausea, shortness of breath or associated symptoms. She reports it radiates to her back. She states it is severe. When asked to the point to the area she points to her epigastric area. Medications: Reviewed: Yes Vitals/I&O/Wt Last Vital Signs Temp 98.4 F 09/05/20 11:59 Pulse 74 09/05/20 13:25 Resp 16 09/05/20 13:25 BP 111/64 09/05/20 13:25 Pulse Ox 89 L 09/05/20 13:25 09/04/20 09/05/20 09/05/20 22:59 06:59 14:59 Intake Total 240 / 480 350 / 350 Balance 240 / 480 350 / 350 Weight last 48 hrs Weight 68.039 kg Physical Exam Narrative: EXAM NARRATIVE: General exam is a white female Neck is supple no lymphadenopathy or thyromegaly Cardiovascular regular rate and rhythm without murmur. No S3 or S4 Lungs are clear no wheezing or crackles Abdomen is soft with positive bowel sounds. No obvious organomegaly Extremities no cyanosis clubbing or edema, cap refill brisk Data : 09/05/20 04:35 09/05/20 04:35 A&P Assessment and plan (1) Chest pain: Troponins negative Echocardiogram demonstrated preserved EF, no wall motion abnormalities and mild mitral regurgitation Nuclear stress test, Lexiscan sestamibi negative for reversible ischemia Continue nitroglycerin ointment, statin, aspirin Patient's pain is somewhat atypical but recurred. She now states the discomfort is very severe, radiating to her back and she feels as if she might . We will check CTA thoracic abdomen to rule out aortic aneurysm. If negative cardiology consultation. Continue Protonix twice daily. Telemetry does not demonstrate any arrhythmia currently. EKG during chest discomfort demonstrates left axis deviation, nonspecific ST-T wave changes Secondary to chest discomfort now check EKG, and give nitroglycerin sublingual. Status: Acute (2) Paroxysmal supraventricular tachycardia: Continue digoxin, flecainide TSH has been recently checked and normal Status: Acute (3) Diabetes mellitus: Sliding scale insulin Status: Acute (4) GERD (gastroesophageal reflux disease): Chest discomfort could be related to reflux. Continue Protonix 40 mg twice daily Status: Acute (5) Chronic cough: Currently on treatment for asthma/COPD by pulmonary Status: Inactive Additional A&P Information Multiple other medical problems as outlined in past medical history Full code Lovenox for DVT prophylaxis Attestations Medical Necessity Statement*: Needs continued hospitalization secondary to recurrent chest discomfort. Changed to regular admission. 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
--- NOTE | 2020-09-05 13:40 | CT_ITS ---
WS: [id number] CTA CHEST AND ABDOMEN TECHNIQUE: Noncontrast plus contrast enhanced CTA of the chest and abdomen with coronal and sagittal reformatted images and additional MIP Images. CLINICAL INFORMATION: severe abdominal pain COMPARISON: CT chest January 14, 2020 DLP: 1051.[address] scans at [facility] use at least one of these dose optimization techniques: automat ed exposure control; mA and/or kV adjustment per patient size (includes targeted exams where dose is matched to clinical indication); or iterative reconstruction. FINDINGS: Proximal main pulmonary arteries are normal. Slightly ectatic ascending thoracic aorta measuring 3.9 CM. No evidence of thoracic aortic dissection. Normal caliber abdominal aorta. No abdominal aortic an eurysm. Celiac and SMA are patent. Proximal renal arteries are patent. Inferior mesenteric artery is patent. Aberrant right subclavian artery. No mediastinal or hilar lymphadenopathy. Moderate chronic emphysematous changes. Subsegmental atelect asis in the lung bases. No axillary lymphadenopathy. Diffuse fatty infiltration of the liver. Prior cholecystectomy. Adrenal glands are normal. Normal kofi al parenchymal enhancement. No hydronephrosis. Small low-attenuation lesion right hepatic lobe likely hepatic cyst measuring 9 mm. No periaortic or retroperitoneal lymphadenopathy. Incidental fat-contai monica umbilical hernia. CT/CT angio chest abdomen IMPRESSION: 1. No evidence of pulmonary embolus. 2. No evidence of aortic dissection or abdominal aortic aneurysm. 3. Slightly ectatic ascending thoracic aorta measuring 3.9 cm. 4. Incidental aberrant right subclavian artery. 5. No acute pulmonary infiltrates. Slight atelectasis in the lung bases. 6. No hydronephrosis in either kidney. 7. Diffuse fatty infiltration of the liver. 8. Prior cholecystectomy.
[2020-09-05] MEDS: nitroglycerin 1 gm/inch oint Pkt 0.5 INCH TOPICAL (14:32)
[2020-09-05] MEDS: pregabalin 100 mg Capsule PO (14:32)
[2020-09-05 14:38] LABS: Troponin(5th) Baseline 6 ng/L (0-10)
[2020-09-05] MEDS: iohexol 350 mg/mL 100 mL Btl IV (15:31)
--- NOTE | 2020-09-05 15:42 | ECG_ITS ---
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 Measurements Intervals [place] Rate: 67 P: 20 GA: 225 QRS: -25 QRSD: 86 T: 63 QT: 405 QTc: 429 Interpretive Statements SINUS RHYTHM WITH FIRST DEGREE AV BLOCK BORDERLINE LEFT AXIS DEVIATION [QRS AXIS < -20] MODERATE VOLTAGE CRITERIA FOR LVH, CONSIDER NORMAL VARIANT NONSPECIFIC T-WAVE ABNORMALITY Compared to ECG 09/05/2020 13:16:59 No significant changes Electronically Signed On 09-05-2020 22:21:32 MECHANICAL SYSTEMS CONTROL ENGINEER by Lexus Marin M.D. [id number]
[2020-09-05 16:56] LABS: Glucose Point of Care 103 mg/dL (70-110)
[2020-09-05 17:01] LABS: Troponin 5 2HR Delta 0 ABS# (0-10)
--- NOTE | 2020-09-05 17:36 | PM.CONSULT ---
Providers/Reason For Consult Consulting Physican/Specialty*: Sam Soares MD/ Cardiology Reason for Consult*: Severe chest pain Attending Physician: Joshua Pérez MD Primary Care Provider: Mannie Hart MD History of Present Illness History of Present Illness 65 year old female who had presented to the hospital with chest pain symptoms. She woke up with severe chest pain. This was substernal and felt like tightness. She had another couple of episodes while in the hospital. She says she feels she might during the episode as it is extremely severe pain. Her troponins did not trend up. Her EKG did not show ischemic changes. Stress test was normal. However been having this severe on and off pain. A CTA was performed that did not reveal dissection or an etiology for chest pain. Review of Systems Narrative: CONSTITUTIONAL: No fever chills weight loss or gain or night sweats. [] HEENT: Normocephalic, atraumatic.[] RESPIRATORY: No cough, sputum, hemoptysis or wheezing.[] CARDIOVASCULAR: Chest pain, no shortness of breath, PND, orthopnea, lower extremity edema, presyncope or syncope. [] GI: no nausea vomiting diarrhea. [] VP SCIENTIFIC AFFAIRS: No numbness, tingling, weakness or loss of function in any part of the body. [] MUSCULOSKELETAL: No knee or joint pain or rashes. [] Meds/Allergies Home Medications and Allergies Home Medications Medication Instructions Recorded Confirmed Last Taken Type albuterol sulfate 90 mcg/actuation 2 puff INHALATION QID PRN 01/17/20 09/04/20 Unknown History aerosol inhaler alprazolam 1 mg tablet 1 mg PO TID PRN 01/17/20 09/04/20 09/03/20 History carbidopa ER 50 mg-levodopa 200 mg 2 tab PO BID@07,16 tab 01/17/20 09/04/20 09/03/20 History tablet,extended release digoxin 125 mcg (0.125 mg) tablet 125 mcg PO DAILY@07 01/17/20 09/04/20 09/03/20 History flecainide 50 mg tablet 50 mg PO Q12H 01/17/20 09/04/20 09/03/20 History insulin glargine 100 unit/mL (3 20 unit SUBCUT DAILY@01/17/20 09/04/20 09/03/20 History mL) subcutaneous pen metformin 500 mg tablet 500 mg PO BID@07,16 01/17/20 09/04/20 09/03/20 History paroxetine HCl 20 mg tablet 20 mg PO DAILY@01/17/20 09/04/20 09/03/20 History pregabalin 100 mg capsule See Rx Instructions .ROUTE .COMPLEX 01/17/20 09/04/20 09/03/20 History quetiapine 25 mg tablet 50 mg PO DAILY@ tab 01/17/20 09/04/20 09/03/20 History suvorexant 10 mg tablet 10 mg PO DAILY@ tab 01/17/20 09/04/20 09/03/20 History codeine 10 mg-guaifenesin 100 mg/5 10 ml PO Q6H PRN #1200 ml 04/22/20 09/04/20 09/03/20 Rx mL oral liquid acetaminophen [Tylenol Extra 1,000 mg PO PRN 09/04/20 09/04/20 Unknown History Strength] budesonide-formoterol [Symbicort] 2 puff INHALATION BID 09/04/20 09/04/20 Unknown History ipratropium-albuterol 3 ml INHALATION Q6H PRN 09/04/20 09/04/20 Unknown History levalbuterol HCl 2.5 mg INHALATION Q6H PRN 09/04/20 09/04/20 Unknown History omeprazole 20 mg PO BID PRN 09/04/20 09/04/20 Unknown History rosuvastatin 10 mg PO DAILY@09/04/20 09/04/20 09/03/20 History Allergies Allergy/AdvReac Type Severity Reaction Status Date / Time cephalexin [From Keflex] Allergy Severe ALGY-Rash Verified 09/04/20 05:49 Cephalosporins Allergy Severe ALGY-Rash Verified 09/04/20 05:49 Current Medications Current Medications Generic Name Dose Route Start Last Admin Trade Name Freq PRN Reason Stop Dose Admin Acetaminophen 650 mg 09/04/20 10:27 09/05/20 11:36 Acetaminophen 325 Mg Tablet PO 650 mg Q6H PRN Administration Mild/Mod Pain Or Temp >/= 101 Alprazolam 1 mg 09/04/20 10:35 09/05/20 17:29 Alprazolam 1 Mg Tablet PO 1 mg TID PRN Administration Anxiety Aspirin 325 mg 09/05/20 09:00 09/05/20 10:37 Aspirin 325 Mg Ec Tablet PO 325 mg DAILY ARMIN Administration Atorvastatin Calcium 40 mg 09/05/20 07:00 09/05/20 10:36 Atorvastatin 40 Mg Tablet PO 40 mg DAILY@07 [facility] Administration Carbidopa/Levodopa 2 each 09/04/20 16:00 09/05/20 14:32 Carbidopa-Levodopa Er 50-200mg Tablet PO 2 each BID@,16 [facility] Administration Digoxin 125 mcg 09/05/20 07:00 09/05/20 10:37 Digoxin 125 Mcg Tablet PO 125 mcg DAILY@07 [facility] Administration Enoxaparin Sodium 40 mg 09/04/20 11:30 09/05/20 10:42 Enoxaparin 40 Mg/0.4 Ml Syringe SUBCUT 40 mg Q24H [facility] Administration Flecainide Acetate 50 mg 09/04/20 11:00 09/05/20 10:41 Flecainide 100 Mg Tablet PO 50 mg 0900,2100 [facility] Administration Insulin Aspart 0 unit 09/04/20 12:00 09/05/20 17:29 Insulin Aspart 100 Unit/1 Ml SUBCUT Not Given WM&BEDTIME [facility] Protocol Morphine Sulfate 2 mg 09/04/20 10:27 09/05/20 12:25 Morphine 4 Mg/Ml Sdv 1 Ml IVP 2 mg Q4H PRN Administration SEVERE PAIN Nitroglycerin 0.4 mg 09/04/20 10:33 09/05/20 13:32 Nitroglycerin 0.4 Mg Sublingual Tablet SUBLINGUAL 1 tab Q5M PRN Administration CHEST PAIN Nitroglycerin 0.5 inch 09/04/20 15:00 09/05/20 14:32 Nitroglycerin 1 Gm/Inch Oint Pkt TOPICAL 0.5 inch Q6H [facility] Administration Non-Formulary Medication 10 mg 09/04/20 21:00 09/05/20 01:09 Suvorexant [Belsomra] PO Not Given DAILY@21 [facility] Ondansetron HCl 4 mg 09/04/20 10:27 09/04/20 16:27 Ondansetron 2 Mg/Ml Sdv 2 Ml IVP 4 mg Q6H PRN Administration NAUSEA AND VOMITING Pantoprazole Sodium 40 mg 09/04/20 18:00 09/05/20 17:[address] 40 Mg Tablet PO 40 mg BID [facility] Administration Paroxetine HCl 20 mg 09/05/20 07:00 09/05/20 10:37 Paroxetine 20 Mg Tablet PO 20 mg DAILY@07 [facility] Administration Pregabalin 100 mg 09/04/20 16:00 09/05/20 14:32 Pregabalin 100 Mg Capsule PO 100 mg DAILY@1600 [facility] Administration Pregabalin 200 mg 09/04/20 21:00 09/05/20 10:37 Pregabalin 100 Mg Capsule PO 200 mg 0700,2100 [facility] Administration Quetiapine Fumarate 50 mg 09/04/20 21:00 09/04/20 22:36 Quetiapine 25 Mg Tablet PO 50 mg DAILY@21 [facility] Administration Fluticasone/Salmeterol 1 puff 09/04/20 20:00 09/05/20 08:52 Fluticasone-Salmeterol 250-50 Diskus INHALATION Not Given BID.RESPIRATORY ARMIN PFSH Acute PFSH: Medical History Anxiety Cataract Chronic cough Depression Diabetes mellitus Diabetic neuropathy Fibromyalgia GERD (gastroesophageal reflux disease) Hyperlipidemia Hypotension Idiopathic Parkinson's disease Insomnia Paroxysmal supraventricular tachycardia SVT (supraventricular tachycardia) TMJ (temporomandibular joint disorder) Tremor Trochanteric bursitis of right hip Surgical History H/O dilation and curettage H/O tubal ligation History of appendectomy History of cholecystectomy History of hysterectomy History of neck surgery Hx of cataract surgery Family History Grandmother Diabetes Social History Smoking and tobacco status: never smoked Second hand smoke exposure: Yes Alcohol intake: never Lives independently: Yes Household members: spouse Marital status: Current occupational status: disabled History of recent travel: No Current gender identity: Female Vitals/I&O/Wt Last Vital Signs Temp 98.6 F 09/05/20 16:00 Pulse 72 09/05/20 16:00 Resp 17 09/05/20 16:00 BP 99/60 09/05/20 16:00 Pulse Ox 90 01/29/21 16:00 09/05/20 09/05/20 09/05/20 06:59 14:59 22:59 Intake Total 550 / 550 Balance 550 / 550 Weight last 48 hrs Weight 150 lb Physical Exam Narrative: EXAM NARRATIVE: GENERAL: Patient is alert, awake and oriented x3. [] NECK: No jugular vein distension. [] HEENT: No cyanosis. No icterus. No pallor. [] HEART: Regular S1 and S2. No murmur, rub or gallop. [] LUNGS: Clear to auscultate bilaterally. [] ABDOMEN: Soft, nontender and nondistended. Positive bowel sounds. No guarding, rebound or tenderness. [] CENTRAL NERVOUS SYSTEM: Grossly nonfocal. [] EXTREMITIES: Lower extremities with no edema bilaterally. Pulses palpable in the lower extremities, both dorsalis pedis and posterior tibial. [] A&P Assessment and plan (1) Chest pain: Status: Acute (2) Paroxysmal supraventricular tachycardia: Status: Acute (3) Diabetes mellitus: Status: Acute Patient has been having on and off severe substernal chest pain for 2 days. Her ischemic work-up has been negative so far. She has risk factor of diabetes. Given no etiology has been found so far for severe chest pain, we will proceed with coronary angiogram. Differentials will be severe coronary artery disease, coronary vasospasm or panic attacks. Keep patient n.p.o. past midnight. Risks and benefits of the procedure have been described in detail. Risks including bleeding, infection, abnormal heart rhythm, kidney function worsening, heart attack, stroke or have been described. Patient understands the risks and benefits and wants to proceed with the procedure. Coding Level of Care Code Acute Thermal Cutter Hand for [facility] Fwd Diagnoses Chest pain R07.9 Paroxysmal supraventricular tachycardia I47.1 Diabetes mellitus E11.9
--- NOTE | 2020-09-05 19:42 | ECG_ITS ---
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 Measurements Intervals [place] Rate: 70 P: 24 HI: 246 QRS: -27 QRSD: 87 T: 73 QT: 413 QTc: 447 Interpretive Statements SINUS RHYTHM WITH FIRST DEGREE AV BLOCK BORDERLINE LEFT AXIS DEVIATION [QRS AXIS < -20] MINIMAL VOLTAGE CRITERIA FOR LVH, CONSIDER NORMAL VARIANT [MEETS CRITERIA IN ONE OF: R(aVL), S(V1), R(V5), R(V5/V6)+S(V1)] NONSPECIFIC T-WAVE ABNORMALITY Compared to ECG 09/05/2020 15:16:26 No significant changes Electronically Signed On 09-06-2020 15:32:35 MAINSTREAMING FACILITATOR by Sam Soares M.D. [id number]
[2020-09-05] MEDS: quetiapine 25 mg Tablet 50 MG PO (20:17)
[2020-09-05 20:36] LABS: Troponin 5 6HR Delta 0 ng/L (0-12)
[2020-09-05 21:17] LABS: Glucose Point of Care 142 mg/dL (70-110)
[2020-09-06] VITALS (26 sets, daily range): BP systolic 92–138; BP diastolic 56–76; PULSE 66–78; RESP 18–19; TEMP 36.3–36.9; O2SAT 88–96
[2020-09-06] MEDS: morphine 4 mg/mL SDV 1 mL 2 MG IVP (02:23)
[2020-09-06 05:35] LABS: Basophils % 0.3 %; Eosinophils # 0.2 10^3/uL (0.0-0.8); Eosinophils % 3.2 %; Hematocrit 37.2 % (37.0-47.0); Hemoglobin 11.6 g/dL (11.5-15.3); Lymphocytes # 1.4 10^3/uL (0.8-4.8); Mean Corpuscular HGB Conc 31.2 g/dL (30.0-36.0); Mean Corpuscular Hemoglobin 29.7 pg (28.0-34.0); Mean Corpuscular Volume 95.1 fL (81-99); Mean Platelet Volume 11.1 fL (7.4-10.4); Monocytes # 0.4 10^3/uL (0.2-0.9); Monocytes % 5.6 %; Neutrophils # 5.14 10^3/uL (1.8-7.7); Neutrophils % 71.6 %; Nucleated Red Blood Cells % 0 %; Platelet Count 191 10^3/cmm (130-400); Red Blood Count 3.91 10^6/uL (4.1-5.3); Red Cell Distribution Width 13.5 % (12.1-15.1); White Blood Count 7.2 10^3/uL (4.0-10.0)
[2020-09-06 06:02] LABS: Alanine Aminotransferase 13 U/L (0-33); Alkaline Phosphatase 74 IU/L (35-105); Anion Gap 13.4 (5-19); Aspartate Amino Transferase 12 U/L (0-32); Blood Urea Nitrogen 12 mg/dL (8-23); Carbon Dioxide 29 mmol/L (22-29); Chloride 104 mmol/L (98-107); Globulin 2.6 g/dL (1.3-4.6); Glucose 104 mg/dL (65-115); Osmolality Calculated 294 mOsm/kg (285-295); Potassium 4.4 mmol/L (3.5-5.1); Sodium 142 mmol/L (136-145); Total Bilirubin 0.4 mg/dL (0.15-1.2); Total Protein 6.6 g/dL (6.6-8.7)
[2020-09-06] MEDS: diphenhydrAMINE 50 mg Capsule PO (06:04)
[2020-09-06] MEDS: sodium chloride 0.9% 1,000 ML 50 ML IV (06:05)
--- NOTE | 2020-09-06 06:20 | XACV_ITS ---
Exam Room: [facility] Ht: 157 cm Wt: 68 kg BSA: 1.74 m2 Gender: Female : 1955 Any Known Allergies: Other Exam Priority: Routine Procedure(s): Procedure Description: Diagnostic procedure Procedure Description: Left Heart Catheterization Procedure Description: Left ventriculography Procedure Description: Coronary Angiography Diagnostic Cath Status: Urgent Diagnostic Findings * No significant disease noted in the Left Main, LAD, Circumflex, or RCA coronary arteries. Patient has a dual LAD system with no significant stenosis.. * Coronary angiography shows right dominance. Conclusions 1. No significant disease noted in the Left Main, LAD, Circumflex, or RCA coronary arteries. 2. Normal left ventricular systolic function. Ejection fraction of 55%. Recommendations * Aggressive risk factor modification. Diagnostic RX Recommendation: medical therapy and/or counseling Ventriculography Ejection Fraction: 55.0 % Pressures Phase:Rest AO : 87 / 49 ( 65 ) @ 1:36:00 AM 98 / 52 ( 72 ) @ 1:41:00 AM 92 / 46 ( 66 ) @ 1:47:00 AM 95 / 43 ( 68 ) @ 1:47:00 AM LV : 100 / -5 / @ 1:46:00 AM 101 / 0 / @ 1:46:00 AM 100 / -3 / @ 1:47:00 AM Valves Phase:DefaultPhase AV : 8.0 @ 7:55:55 AM AV Mean Gradient: 8.0 @ 7:55:55 AM Clinical Evaluation EBL: 5mL-10mL Procedural Details Procedure Consent Obtained. Pre-Procedure Time Out. Identified patient by full name and date of as verbalized by the patient/guarantor. Does the consent match the physician's order: Yes. Accurate & Complete Informed Consent: Yes. Inpatient/Outpatient History & Physical on Chart: Yes. If H&P is completed, is and addenduem needed: No; If yes, is the addendum complete: N/A. Visualize and Verify Site with Patient/Guarantor: N/A. Relevant Radiology Images available: N/A. Pre-op teaching completed and patient verbalized understanding. The risks, benefits, and alternatives of sedation and/or procedure were discussed by physician. The patient agrees to continue. Procedure started. [facility] Clinical Fraility Score: 2: Well. Medical Record Assistant Indications: New Onset Angina. Chest Pain Symptom Assessment: Atypical Angina. Cardiovascular Instability: No. Correct patient, site and procedure confirmed by cath team. PERRLA. 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 Lungs clear x 5 lobes. IV Site on Arrival: 20 gauge in the right anticubital. IV Site on Arrival: 20 gauge in the left forearm. IV Fluids: 0.9% NaCl at KVO. 0 mL infused prior to cath lab manager. Pre Procedural Pulses: bilateral posterior tibial was Doppled. Pre Procedural Pulses: bilateral dorsalis pedis was Doppled. Pre Procedural Pulses: bilateral radial was 3+. Oxygen started at 2liters/min via nasal canula. bilateral groins was prepped with chloroprep then draped in the usual sterile fashion. right radial was prepped with chloroprep then draped in the usual sterile fashion. Baseline sample Acquired. HR: 122 BPM. Equipment: 6F - Radial. Cardiac Cath Pack. ACIST Manifold Kit Model BT 2000. Heparinized Saline (2 units/mL), 1000 mL bag. Physician arrived. Physician scrubbed in. Immediate Pre-Procedure Time Out. Correct Patient: Yes; Correct Procedure: Yes; Correct Site: Yes; Correct Patient Position: Yes; Correct Supplies: Yes; Dried Flammable Prep: Yes; Blood Products Available: N/A;. Lidocaine 1% infiltrated to the right radial. Arterial access obtained. A 5 syrian TIG catheter in over wire. Wire and catheter out. Physician unable to advance catheter due to difficult artery anatomy. Physician moving to femoral approach. Lidocaine 1% infiltrated to the right groin. Arterial access obtained with micropuncture set. A JJ 6F JL4 100cm Diagnostic Catheter was advanced over the wire and used for Left coronary angiography. Multiple views taken of left coronary artery. Catheter removed over the standard wire. A CRD 6F JR4 100cm Diagnostic Catheter was advanced over the wire and used for Right coronary angiography. Multiple views taken of right coronary artery. Catheter removed over the standard wire. A 6 syrian Angled Pig catheter in over wire. EDP Sample taken: LV 100/-6,17; HR: 72 BPM; SpO2: 87%. LV gram performed in [place] @ 10 mL/second for a total of 30 mL. EDP Sample taken: LV 101/-1,20; HR: 73 BPM; SpO2: 93%. Pullback taken: LV 100/-4,18; AO 92/46(66); Mean: 8mmHg, Peak to Peak: 8mmHg, SEP: 22sec/min; HR: 74 BPM; SpO2: 93%. Catheter removed over the standard wire. Physician scrubbed out. A TR Band was successful obtaining hemostatsis at the Right Radial artery insertion site. TR band placed. Hemostasis obtained. A Suture was successful obtaining hemostatsis at the Right Femoral artery insertion site. Sheath(s) sutured into position with 2-0 silk and sterile 4x4's and Op-site applied over the site. No oozing or signs and symptoms of hematoma noted. Arterial sheath flushed and connected to tranducer and pressure bag with heparinized saline. Post Procedure: Pulses reassessed and unchanged. PERRLA. 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 No VTE prophylaxis required. Contrast type used: Omnipaque 300 mgI/mL, 500 mL bottle. Post-op diagnosis: non obstructive CAD. Complications: none. Estimated blood loss: 5mL-10mL. Medication's Wasted: Lidocaine 1% = 3 mL. Medication's Wasted: Nitro = 49.8 mg. Medication's Wasted: Heparin = 4000 units. Total IV fluids: 75 mL. Procedure completed. Patient transferred by bed to 1st floor. Vital chart was stopped. Access Site Site: Right Radial artery Sheath Size: 6 Fr Hemostasis Method: TR Band Hemostasis Success: Successful Site: Right Femoral artery Sheath Size: 6 Fr Hemostasis Method: Suture Hemostasis Success: Successful Procedure Medications Start: 7:14 AM Stop: 7:14 AM Medication: Versed Amount: 1 mg Route: I.V. Start: 7:14 AM Stop: 7:14 AM Medication: Fentanyl Amount: 25 mcg Route: I.V. Start: 7:17 AM Stop: 7:17 AM Medication: Versed Amount: 1 mg Route: I.V. Start: 7:18 AM Stop: 7:18 AM Medication: Fentanyl Amount: 25 mcg Route: I.V. Start: 7:21 AM Stop: 7:21 AM Medication: Nitrogylcerin Amount: 200 mcg Route: I.A. Start: 7:23 AM Stop: 7:23 AM Medication: Versed Amount: 1 mg Route: I.V. Start: 7:32 AM Stop: 7:32 AM Medication: Versed Amount: 1 mg Route: I.V. Start: 7:32 AM Stop: 7:32 AM Medication: Fentanyl Amount: 25 mcg Route: I.V. Start: 7:39 AM Stop: 7:39 AM Medication: Fentanyl Amount: 25 mcg Route: I.V. I, the attending physician, have reviewed and verified all procedure medications. Yes, all medications given per verbal order History/Risk Factors Hypertension: No Dyslipidemia: Yes Peripheral Arterial Disease (PAD): No Myocardial Infarction ([place]): No Obesity: No Renal Disease: No Tobacco Use: Never Prior Interventions PCI: No CABG: No Valve Surgery: No Report Signatures Finalized by Sam Soares MD on 09/15/2020 10:00 AM
[2020-09-06 06:23] LABS: Glucose Point of Care 104 mg/dL (70-110)
[2020-09-06] MEDS: digoxin 125 mcg Tablet PO (06:57)
--- NOTE | 2020-09-06 07:14 | W.PM.OPSUD ---
Surgery/Procedure H&P Update DATE OF PROCEDURE: September 06, 2020 DATE H&P PERFORMED: 09/05/20 H&P UPDATE INFORMATION: I have reviewed H&P completed within last 30 days, I have examined patient prior to procedure and No changes to prior documentation PREOP DIAGNOSIS: Worsening chest pain PRIMARY INDICATION FOR PROCEDURE: Worsening chest pain PLANNED PROCEDURE: Operation Date: 09/06/20 07:00 Proposed Procedures p Cardiac Catheterization(Not Applicable) - Sam Soares M.D PATIENT REASSESSED PRIOR TO SEDATION, WITH NO CHANGE NOTED: Yes PHYSICAL EXAM: alert, oriented x 3 and clear to auscultation bilaterally AIRWAY EVAL/ANESTHESIA PLAN: ASA II, Risks, benefits & alternatives of sedation and/or procedure discussed and Patient agrees to continue as planned
--- NOTE | 2020-09-06 08:29 | P.PN_ITS ---
Subjective Subjective: Interval history: Patient underwent coronary angiography this morning. No significant coronary artery disease is seen. Patient has mid LAD bridge. She denies any current chest pain, shortness of breath or palpitations. Vitals/I&O/Wt Last Vital Signs Temp 97.9 F 09/06/20 04:00 Pulse 75 09/06/20 06:57 Resp 18 09/06/20 04:00 BP 105/61 09/06/20 04:00 Pulse Ox 90 09/06/20 04:00 09/05/20 09/06/20 09/06/20 22:59 06:59 14:59 Intake Total 240 / 790 Balance 240 / 790 Physical Exam Narrative: EXAM NARRATIVE: GENERAL: Patient is alert, awake and oriented x3. [] NECK: No jugular vein distension. [] HEENT: No cyanosis. No icterus. No pallor. [] HEART: Regular S1 and S2. No murmur, rub or gallop. [] LUNGS: Clear to auscultate bilaterally. [] ABDOMEN: Soft, nontender and nondistended. Positive bowel sounds. No guarding, rebound or tenderness. [] CENTRAL NERVOUS SYSTEM: Grossly nonfocal. [] EXTREMITIES: Lower extremities with no edema bilaterally. Pulses palpable in the lower extremities, both dorsalis pedis and posterior tibial. [] Data : 09/06/20 05:15 09/06/20 05:15 A&P Assessment and plan (1) Chest pain: Status: Acute (2) Paroxysmal supraventricular tachycardia: Status: Acute (3) Diabetes mellitus: Status: Acute She underwent coronary angiography this morning. No evidence of coronary artery disease. Most likely etiology for her episodic chest pain is coronary vasospasm. We will recommend initiating amlodipine 5 mg daily if blood pressure tolerates. She has a femoral access sheath. Once sheath is pulled out out she should stay in the hospital for 6 hours and then can be discharged. Continue aspirin Thank you for involving us with care of this patient. Please call with questions Attestations Medical Necessity Statement*: Care expected to cross 2 midnights. Coding Level of Care Code Acute Epic Professional for [facility] Diagnoses Chest pain R07.9 Paroxysmal supraventricular tachycardia I47.1 Diabetes mellitus E11.9
--- NOTE | 2020-09-06 10:04 | PC.NURSE ---
At 0910 right femorall groin sheath removed and manual pressure held x 20 minutes. No bleeding or oozing from site. No swelling or hematoma. 2x2 dessing and opsite to cover isertion point. 3ml of air removed from right radial TR band. Small amount of oozing noted immediately and air re-inserted.
--- NOTE | 2020-09-06 10:32 | P.DS_ITS ---
Discharge Providers Date of Admission: 09/05/20 13:45 Date of Discharge: September 06, 2020 Attending Provider at Admission: Joshua Pérez MD Attending Provider at Discharge: Sandeep Kim MD Consults: Cardiology: Dr. Menjivar Primary Care Provider: Mannie Hart MD Diagnoses at Discharge Discharge Diagnosis (1) Chest pain: Status: Acute (2) Paroxysmal supraventricular tachycardia: Status: Acute (3) Diabetes mellitus: Status: Acute (4) Coronary-myocardial bridge: Status: Acute Reason for Visit Reason for Visit: CHEST PAIN R07.9 [id number] Hospital Course Hospital Course Chelsea Morris, 65 year old female with past medical history of diabetes, diabetic neuropathy, possible superadded tachycardia, fibromyalgia, hyperlipidemia who had presented to the hospital with chest pain symptoms. She woke up with severe chest pain. This was substernal and felt like tightness. She had another couple of episodes while in the hospital. She says she feels she might during the episode as it is extremely severe pain. Her troponins did not trend up. Her EKG did not show ischemic changes. Stress test was normal. However been having this severe on and off pain. A CTA was performed that did not reveal dissection or an etiology for chest pain. 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 Patient tolerated the procedure well. She has been started on amlodipine 5 mg vasospastic angina. She is been discharged hemodynamic stable condition advised to follow-up with cardiology in 2 weeks and a primary care provider within next 2 weeks. Physical Exam Narrative: EXAM NARRATIVE: General exam is a white female Neck is supple no lymphadenopathy or thyromegaly Cardiovascular regular rate and rhythm without murmur. No S3 or S4 Lungs are clear no wheezing or crackles Abdomen is soft with positive bowel sounds. 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 MANAGER request for service Routin e Exams 09/06/20 06:20 Ordered Sestamibi Stress Test Request Mariana ne Exams 09/04/20 10:33 Stop Req Labs from last 24 hours 09/06/20 09/06/20 09/06/20 06:19 05:15 05:15 WBC 7.2 RBC 3.91 L Hgb 11.6 Hct 37.2 MCV 95.1 MCH 29.7 MCHC 31.2 RDW 13.5 Plt Count 191 MPV 11.1 H Neut % (Auto) 71.6 Lymph % (Auto) 19.0 [place] % (Auto) 5.6 Eos % (Auto) 3.2 Baso % (Auto) 0.3 Neut # (Auto) 5.14 Lymph # (Auto) 1.4 [place] # (Auto) 0.4 Eos # (Auto) 0.2 Baso # (Auto) 0.0 Nucleated RBC % (a uto) 0 Nucleated RBCs # 0.0 Sodium 142 Potassium 4.4 Chloride 104 Carbon Dioxide 29 Anion Gap 13.4 BUN 12 Creatinine 0.6 GFR Calculation 100.0 Glucose 104 POC Glucose 104 Calculated Osmolal ity 294 Calcium 9.0 Total Bilirubin 0.4 AST 12 ALT 13 Alkaline Phosphata se 74 Troponin T Baselin e Troponin T 120 Min [place] Troponin T Troponin T Hi Sens 6Hr Troponin T Hi Sens 6Hr Delta Total Protein 6.6 Albumin 4.0 Globulin 2.6 09/05/20 09/05/20 09/05/20 21:13 20:05 16:50 WBC RBC Hgb Hct MCV MCH MCHC RDW Plt Count MPV Neut % (Auto) Lymph % (Auto) [place] % (Auto) Eos % (Auto) Baso % (Auto) Neut # (Auto) Lymph # (Auto) [place] # (Auto) Eos # (Auto) Baso # (Auto) Nucleated RBC % (a uto) Nucleated RBCs # Sodium Potassium Chloride Carbon Dioxide Anion Gap BUN Creatinine GFR Calculation Glucose POC Glucose 142 H 103 Calculated Osmolal ity Calcium Total Bilirubin AST ALT Alkaline Phosphata se Troponin T Baselin e Troponin T 120 Min [place] Troponin T Troponin T Hi Sens 6Hr 6.00 Troponin T Hi Sens 6Hr Delta 0 Total Protein Albumin Globulin 09/05/20 09/05/20 09/05/20 16:33 14:15 10:49 WBC RBC Hgb Hct MCV MCH MCHC RDW Plt Count MPV Neut % (Auto) Lymph % (Auto) [place] % (Auto) Eos % (Auto) Baso % (Auto) Neut # (Auto) Lymph # (Auto) [place] # (Auto) Eos # (Auto) Baso # (Auto) Nucleated RBC % (a uto) Nucleated RBCs # Sodium Potassium Chloride Carbon Dioxide Anion Gap BUN Creatinine GFR Calculation Glucose POC Glucose 109 Calculated Osmolal ity Calcium Total Bilirubin AST ALT Alkaline Phosphata se Troponin T Baselin e 6 Troponin T 120 Min [place] 6.00 Delta Troponin T 0 Troponin T Hi Sens 6Hr Troponin T Hi Sens 6Hr Delta Total Protein Albumin Globulin Vitals: Last Vital Signs Temp 97.9 F 09/06/20 04:00 Pulse 75 09/06/20 06:57 Resp 18 09/06/20 04:00 BP 105/61 09/06/20 04:00 Pulse Ox 90 09/06/20 04:00 Discharge Plan Discharge Patient Disposition: Home Condition: Stable Prescriptions: New aspirin 81 mg tablet,delayed release (DR/EC) 81 mg PO DAILY Qty: 30 RF: 0 amlodipine 5 mg tablet 5 mg PO DAILY Qty: 30 RF: 0 Continued Belsomra 10 mg tablet 10 mg PO DAILY@21 RF: 0 metformin 500 mg tablet 500 mg PO BID@,16 RF: 0 pregabalin [Lyrica] 100 mg capsule See Rx Instructions .ROUTE .COMPLEX RF: 0 digoxin [Lanoxin] 125 mcg (0.125 mg) tablet 125 mcg PO DAILY@07 RF: 0 carbidopa-levodopa 50-200 mg tablet extended release 2 tab PO BID@,16 RF: 0 paroxetine HCl 20 mg tablet 20 mg PO DAILY@07 RF: 0 Lantus Solostar U-100 Insulin 100 unit/mL (3 mL) insulin pen 20 unit SUBCUT DAILY@21 RF: 0 albuterol sulfate [ProAir HFA] 90 mcg/actuation HFA aerosol inhaler 2 puff INHALATION QID PRN (Reason: Shortness Of Breath) RF: 0 alprazolam 1 mg tablet 1 mg PO TID PRN (Reason: Anxiety) RF: 0 quetiapine [Seroquel] 25 mg tablet 50 mg PO DAILY@21 RF: 0 flecainide 50 mg tablet 50 mg PO Q12H RF: 0 codeine-guaifenesin 10-100 mg/5 mL liquid 10 ml PO Q6H PRN (Reason: cough) Qty: 1200 RF: 2 ipratropium-albuterol 0.5 mg-3 mg(2.5 mg base)/3 mL solution for nebulization 3 ml INHALATION Q6H PRN (Reason: Shortness Of Breath) RF: 0 levalbuterol HCl 1.25 mg/3 mL solution for nebulization 2.5 mg INHALATION Q6H PRN (Reason: unknown) RF: 0 rosuvastatin 10 mg tablet 10 mg PO DAILY@07 RF: 0 budesonide-formoterol [Symbicort] 80-4.5 mcg/actuation HFA aerosol inhaler 2 puff INHALATION BID RF: 0 omeprazole 20 mg capsule,delayed release(DR/EC) 20 mg PO BID PRN (Reason: Acid Reflux) RF: 0 Tylenol Extra Strength 500 mg Tablet 1,000 mg PO PRN RF: 0 Discharge Orders: Discharge Order (Routine); Ordered 09/06/20 Ordered By: Sandeep Kim Referrals: Sam Soares M.D [Physician] - 7-10 days Mannie Hart MD [Primary Care Provider] - 2 weeks Discharge Diet: Advance as tolerated Discharge Activity: Resume usual activity Activity Restrictions/Additional Instructions: Follow-up with your primary care provider within next 2 weeks. Amlodipine has been started for you. Take 5 mg daily. Maintain blood pressure diary and follow-up with your primary care provider. Discharge Attestations Time Spent in Discharge Care*: greater than 30 min Specific Discharge Activities: educating patient, discussing with pcp/other providers, discussing with case filler/social workers/dc planners, documenting/other paperwork and evaluating patient/reviewing data Status at Discharge: Cognitive status at discharge: cognitively intact , Behavioral status at discharge: cooperative , Functional status at discharge: independent ambulation Overall status at discharge: patient is back to baseline Quality Metrics Clinical Quality Measures During this hospital stay, did patient experience: None Coding Level of Care Code Acute 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
[2020-09-06 11:19] LABS: Glucose Point of Care 96 mg/dL (70-110)
--- NOTE | 2020-09-06 16:16 | PC.NURSE ---
At 1530 Assisted patient to stand. Patient denies pain or shortness of breath. Waked in hallway without difficulty. Right groin site with dry dressing intact. Discussed with patient lifting restrictions of 5 lbs. no Pushing out of chair with right arm and limit stair walking. Patient verbalized understanding of restrictions. Reminded patient not to take metformin for 48 hrs post precedure.
== END 2020-09-06 16:00 | disposition home or self-care (01) | DRG 287 ==
LOC: ER 08:54 → MEDSURG 10:15 → CSU 09-06 07:41
PROVIDERS: Emergency Medicine; Internal Medicine; Admitting Provider Internal Medicine; Emergency Provider Family Medicine; PCP Family Medicine; Visit Provider Student in an Organized Health Care Education/Training Program
PROC: 4A023N7 Measurement of Cardiac Sampling and Pressure, Left Heart, Percutaneous Approach (ICD-10-PCS; principal; 2020-09-06 07:00)
DX: I25.110 Atherosclerotic heart disease of native coronary artery with unstable angina pectoris (principal); I47.1 Supraventricular tachycardia; E11.40 Type 2 diabetes mellitus with diabetic neuropathy, unspecified; E78.5 Hyperlipidemia, unspecified; M79.7 Fibromyalgia; Z79.84 Long term (current) use of oral hypoglycemic drugs; K21.9 Gastro-esophageal reflux disease without esophagitis; G47.00 Insomnia, unspecified; F41.8 Other specified anxiety disorders; Z77.22 Contact with and (suspected) exposure to environmental tobacco smoke (acute) (chronic)
CPT/HCPCS: 12345; 36415; 36416; 71045; 71275; 74175; 78452; 80053; 80162; 82962; 84484; 85025; 90686; 90732; 93005; 93017; 93306; 93452; 94640; 96372; 99282; A9500; C1769; C1887; C1894; G0378; J1644; J1650; J1815; J2250; J2270; J2405; J2785; J3010; J3490; J7030; Q0163; Q9967

== ENCOUNTER → 2020-11-24 15:47 | Outpatient (BNVA) | payer MEDICARE, MEDICAID, SELFPAY | PROVIDERS: PCP Family Medicine; Visit Provider Internal Medicine Critical Care Medicine | DX: R05 Cough (principal); Z20.822 Contact with and (suspected) exposure to COVID-19 | CPT/HCPCS: 87635 ==

== ENCOUNTER 2020-11-26 09:01 | Outpatient (CLI) | payer MEDICARE, MEDICAID, SELFPAY ==
--- NOTE | 2020-11-26 11:00 | PFTS_ITS ---
Date of Study:11/26/20 Date of Dictation: MECHANICS: Forced vital capacity (FVC) is reduced. Forced expiratory volume in one second (FEV1) is reduced. FEV1/FVC is normal. FLOW VOLUME LOOP: Absence of peak expiratory flow on flow volume loop. LUNG VOLUMES: Total lung capacity (TLC) is reduced. Residual volume (RV) is normal. DIFFUSING CAPACITY FOR CARBON MONOXIDE: Mild reduced. INTERPRETATION: The pulmonary function tests are consistent with moderate restriction. There is no significant postbronchodilator response. Total lung capacity is consistent with restrictive lung disease. The constellation of restrictive lung disease on spirometry with a preserve residual volume can be seen in patients with neuromuscular weakness. Gas exchange (DLCO) is mildly reduced. MTDD
== END 2020-11-26 09:02 | disposition home or self-care (01) ==
PROVIDERS: PCP Family Medicine; Visit Provider Internal Medicine Critical Care Medicine
DX: R05 Cough (principal)
CPT/HCPCS: 94060; 94726; 94729; J7611

== ENCOUNTER 2020-12-17 13:06 | Emergency (ER) | payer MEDICARE, MEDICAID, SELFPAY ==
[2020-12-17] VITALS (8 sets, daily range): BP systolic 97–130; BP diastolic 61–86; PULSE 60–82; RESP 14–20; TEMP 36.4–36.6; O2SAT 90–97; BMI 28.1
--- NOTE | 2020-12-17 13:17 | PC.NURSE ---
Patient was brought back immediately to ER treatment room 8, room made psych safe. Patient placed under direct observation and changed into paper scrubs. fabrication supervisor notified of patients arrival.
--- NOTE | 2020-12-17 13:56 | CT_ITS ---
WS: [id number] CT CERVICAL SPINE HISTORY: headache TECHNIQUE: Contiguous 2.5 mm axial imaging performed through the entire cervical spine. Sagittal and coronal reformats also performed. All CT scans at [facility] use at least one of these do se optimization techniques: automated exposure control; mA and/or kV adjustment per patient size (inc ludes targeted exams where dose is matched to clinical indication); or iterative reconstruction. DLP: 556.74 mGy.cm COMPARISON: None available. Straightening of the normal cervical lordosis. No fractures or disc space narrowing. Craniocervical j unction is negative. Lateral masses of C1 and C2 and the odontoid are intact. No fractures. No disc p rotrusions or severe central or foraminal stenosis. Mild LEFT foraminal stenosis at C3-4, C5-6 and bi lateral C6-7. Lung apices are clear. Visualized thyroid is normal. No adenopathy. CT/CT cervical spin wo con* [id number] IMPRESSION: 1. No cervical spine fracture. 2. Mild spondylitic changes in the cervical spine. No high-grade stenosis.
--- NOTE | 2020-12-17 13:56 | CT_ITS ---
WS: [id number] CT HEAD NONCONTRAST HISTORY: headache TECHNIQUE: Contiguous axial imaging performed through the brain in 2.5 mm imaging. Bone and soft tiss ue windows. Sagittal and coronal reformats reviewed. All CT scans at [facility] use at ast one of these dose optimization techniques: automated exposure control; mA and/or kV adjustment pe r patient size (includes targeted exams where dose is matched to clinical indication); or iterative r econstruction. DLP: 781.33 mGy.cm COMPARISON: 07/11/2013 No acute intracranial hemorrhage, midline shift or mass effect. No atrophy or prior infarcts or herniation. Very mild chronic microvascular ischemic disease. No candis or infarct. Ventricles: Normal size with no hydrocephalus. Paranasal sinuses: As visualized are clear. Mastoid air cells: Well pneumatized. Calvarium and scalp: Skull is intact with no soft tissue edema or swelling. Small amount of cerumen in the external auditory canals. CT/CT head wo con* [id number] IMPRESSION: Negative head CT.
[2020-12-17] MEDS: HYDROcodone-acetaminophen 5-325 mg Tablet 1 TAB PO (14:50)
--- NOTE | 2020-12-17 16:09 | CTR_ITS ---
PROCEDURE INFORMATION: Exam: CTA Chest With Contrast Exam date and time: 12/17/2020 4:20 PM Age: 65 years old Clinical indication: Shortness of breath; Additional info: Satting 90% TECHNIQUE: Imaging protocol: Computed tomographic angiography of the chest with contrast. 3D rendering (Not supervised by radiologist): MIP and/or 3D reconstructed images were created by the technologist. Total images: 806 Radiation optimization: All CT scans at this facility use at least one of these dose optimization techniques: automated exposure control; mA and/or kV adjustment per patient size (includes targeted exams where dose is matched to clinical indication); or iterative reconstruction. Contrast material: OMNI 350; Contrast volume: 66 ml; Contrast route: INTRAVENOUS (IV); COMPARISON: CT angio chest abdomen 09/05/2020 3:18 PM RADIATION DOSE METRICS: Total DLP (mGy-cm): 549.33 FINDINGS: Pulmonary arteries: No visible evidence of pulmonary embolism/pulmonary arterial thrombus. Aorta: The thoracic aorta is nonaneurysmal. No visible intimal flap or dissection. Mild arterial sclerotic disease. Great vessels off aortic arch: Aberrant right subclavian artery which is a normal anatomical variant. Lungs: No visible active interstitial or alveolar airspace disease. Mild dependent atelectasis. Pleural spaces: Unremarkable. No pneumothorax. No pleural effusion. Heart: Mild cardiomegaly. No visible pericardial effusion. Left ventricular prominence. No visible significant coronary artery disease. Lymph nodes: No visible active mediastinal or hilar lymphadenopathy. Calcified mediastinal and hilar complexes of antecedent granulomatous disease. Gallbladder and bile ducts: Status post cholecystectomy. Bones/joints: No visible active or acute osseous pathology. Mild degenerative disease of the spine. Soft tissues: Unremarkable. CT/CT angio chest PE protcl [id number] IMPRESSION: No visible evidence of pulmonary embolism/pulmonary arterial thrombus. Radiation Dose CTDIVOL = (mGy): DLP = 549.33 (mGy-cm)
--- NOTE | 2020-12-17 16:09 | XRR_ITS ---
PROCEDURE INFORMATION: Exam: XR Chest Exam date and time: 12/17/2020 4:28 PM Age: 65 years old Clinical indication: Other: Low o2 sats; Additional info: Satting 90% TECHNIQUE: Imaging protocol: XR of the chest. Views: 1 view. COMPARISON: CR XR chest 1V portable [id number] 09/04/2020 6:15 AM FINDINGS: Lungs: Left lower lobe atelectasis No consolidation. Pleural spaces: Unremarkable. No pleural effusion. No pneumothorax. Heart/Mediastinum: Unremarkable. No cardiomegaly. Bones/joints: Unremarkable. XR/XR chest 1V portable [id number] IMPRESSION: No acute findings.
--- NOTE | 2020-12-17 16:13 | ECG_ITS ---
[facility] Test Date: 2020-12-17 Pat Name: Chelsea Ruvalcaba Department: Room: Gender: Female Ems Director: : 1955 Requested By: Dawson Vera Order Number: [id number] Almaguer MD: Lexus Marin M.D. Measurements Intervals [place] Rate: 60 P: 37 NV: 221 QRS: -24 QRSD: 94 T: 78 QT: 449 QTc: 451 Interpretive Statements SINUS RHYTHM WITH FIRST DEGREE AV BLOCK BORDERLINE LEFT AXIS DEVIATION [QRS AXIS < -20] NONSPECIFIC T-WAVE ABNORMALITY Compared to ECG 09/05/2020 22:30:27 No significant changes Electronically Signed On 12-17-2020 18:20:50 CDT by Lexus Marin M.D. [email or web address]
[2020-12-17] MEDS: ipratropium-albuterol 3 mL Neb INHALATION (16:36)
[2020-12-17 16:40] LABS: Add Urine Microscopic? NO; Charge for UA Resulting for Rev
[2020-12-17 16:43] LABS: Bilirubin Urine Neg (Negative); Blood Urine Neg (Negative); Glucose Urine UA Norm (Normal); Ketones Urine Negative (Negative); Leukocyte Esterase Urine Negative (Negative); Nitrate Urine Negative (Negative); Protein Urine Neg (Negative); Specific Gravity, Urine 1.005 (1.005-1.030); Urine Appearance Clear (CLEAR); Urine Color Straw (Yellow); Urobilinogen Urine Norm (Negative); pH Urine 7 (5-7)
[2020-12-17 16:51] LABS: ABG PCO2 49.9 mmHg (35-45); ABG PH Result 7.34 (7.35-7.45); Arterial Blood Gas Hematocrit 40.5 % (37-47); Base Excess ABG 0.1 mmol/L (-2.0-2.0); Blood Gas Allen Test Pos; Blood Gas Sample Type Arterial; Carboxyhemoglobin 0.8 %THgb (0.4-20.1); HCO3 ABG 26.6 mmol/L (22-26); HGB O2 Sat 94.3 % (95-100); Methemoglobin 0.8 % (0.4-1.5); PO2 ABG 80.9 mmHg (80.0-100.0); Total Hemoglobin 13.2 g/dL (12-16)
[2020-12-17 16:52] LABS: Blood Gas Operator Identificat ED; Blood Gas Sample Site Radial, left; Oxygen Device ROOM AIR
[2020-12-17 16:59] LABS: Basophils % 0.5 %; Eosinophils # 0.5 10^3/uL (0.0-0.8); Eosinophils % 5.3 %; Hematocrit 42.5 % (37.0-47.0); Hemoglobin 13.1 g/dL (11.5-15.3); Lymphocytes # 2.9 10^3/uL (0.8-4.8); Lymphocytes % 34.2 %; Mean Corpuscular HGB Conc 30.8 g/dL (30.0-36.0); Mean Corpuscular Hemoglobin 28.3 pg (28.0-34.0); Mean Corpuscular Volume 91.8 fL (81-99); Monocytes # 0.5 10^3/uL (0.2-0.9); Monocytes % 5.3 %; Neutrophils # 4.62 10^3/uL (1.8-7.7); Neutrophils % 54.6 %; Nucleated Red Blood Cells % 0 %; Platelet Count 222 10^3/cmm (130-400); Red Blood Count 4.63 10^6/uL (4.1-5.3); Red Cell Distribution Width 13.4 % (12.1-15.1); White Blood Count 8.5 10^3/uL (4.0-10.0)
[2020-12-17 17:30] LABS: Troponin(5th) Baseline 7 ng/L (0-10)
[2020-12-17 17:38] LABS: Alanine Aminotransferase < 5 U/L (0-33); Albumin Level 4.6 g/dL (3.5-5.2); Alkaline Phosphatase 77 IU/L (35-105); Anion Gap 15.3 (5-19); Aspartate Amino Transferase 34 U/L (0-32); Blood Urea Nitrogen 10 mg/dL (8-23); Calcium 8.7 mg/dL (8.5-10.5); Carbon Dioxide 26 mmol/L (22-29); Chloride 104 mmol/L (98-107); Globulin 2.5 g/dL (1.3-4.6); Glomerular Filtration Rate 83.7 mL/min (90-130); Glucose 106 mg/dL (65-115); NT Pro B Type Natriuretic Pept 28 pg/mL (0-125); Osmolality Calculated 291 mOsm/kg (285-295); Potassium 4.3 mmol/L (3.5-5.1); Sodium 141 mmol/L (136-145); Total Bilirubin 0.3 mg/dL (0.15-1.2); Total Protein 7.1 g/dL (6.6-8.7)
[2020-12-17] MEDS: iohexol 350 mg/mL 100 mL Btl IV (17:49)
[2020-12-17 18:11] LABS: D Dimer 0.31 ug/mIFEU (0-0.59)
[2020-12-17 19:56] LABS: Troponin 5 2HR 9.46 ng/L (0-10); Troponin 5 2HR Delta 2.46 ABS# (0-10)
[2020-12-17] MEDS: morphine 4 mg/mL SDV 1 mL IVP (21:38)
--- NOTE | 2020-12-18 00:08 | ED_ITS ---
HPI - Headache General: Chief Complaint: Headache Stated Complaint: Head Pain/Sent From [facility] Time Seen by Provider: 12/17/20 13:40 History of Present Illness: HPI Narrative: The patient is a 65-year-old female with recent left eyelid raising surgery. She comes to the ER complaining of a headache that starts behind her left ear and radiated around the back of her head to her right ear. She was sent here by Evaristo Reyez for evaluation of this headache as it was the most severe she has ever had. Denies neck pain, fever chills, or any other signs of meningitis. MD elicited complaint: headache Onset description: suddenly Location: right and occipital Severity: severe Quality & Timing: throbbing Exacerbating factors: none Associated symptoms: Reports no associated symptoms; Deny confusion, eye pain, eye redness, neck stiffness, numbness, photophobia, pre-syncope, rash, short of breath, syncope, vomiting or weakness Review of Systems General: Reports: 10 or more systems reviewed and unremarkable except in HPI and below Const: Denies: fatigue Eyes: Denies: change in vision, blurry vision or eye redness ENMT: Denies: throat pain, swelling of lips/tongue, ear or mastoid pain or nasal congestion Card: Denies: syncope or pre-syncope Resp: Denies: dyspnea, productive cough or non-productive cough GI: Denies: vomiting : Denies: flank pain, difficulty voiding, urinary frequency or urinary urgency Musc: Denies: neck pain, back pain, extremity pain, joint pain, joint redness, limited range of motion or muscle weakness Skin/Breast: Denies: rash, pruritus, erythema, skin pain or skin tenderness Neuro: Reports: headache(s); Denies: numbness in extremities, weakness in extremities, sensory changes, difficulty walking, dizziness, confusion or Slurred speech present Psych: Denies: anxiety or depression Endo: Denies: polyuria All/Imm: Denies: urticaria, throat swelling or tongue swelling PFSH ED PFSH: Medical History Anxiety Cataract Chronic cough Depression Diabetes mellitus Diabetic neuropathy Fibromyalgia GERD (gastroesophageal reflux disease) Hyperlipidemia Hypotension Idiopathic Parkinson's disease Insomnia Paroxysmal supraventricular tachycardia SVT (supraventricular tachycardia) TMJ (temporomandibular joint disorder) Tremor Trochanteric bursitis of right hip Surgical History H/O dilation and curettage H/O tubal ligation History of appendectomy History of cholecystectomy History of hysterectomy History of neck surgery Hx of cataract surgery Family History Grandmother Diabetes Social History Smoking and tobacco status: never smoked Second hand smoke exposure: Yes Alcohol intake: never Lives independently: Yes Household members: spouse Marital status: Current occupational status: disabled History of recent travel: No Current gender identity: Female Physical Exam Const: COMMON NORMALS: no acute distress, average body habitus, patient oriented x3, no limitations, healthy appearing, alert and well nourished GENERAL APPEARANCE: cooperative, comfortable, well kempt and well developed ORIENTATION/CONSCIOUSNESS: Yes awake, Yes oriented to person, Yes oriented to place and Yes oriented to time HENMT: COMMON NORMALS: normocephalic, external ears normal and Normal external nose present HEAD & SCALP: normal to inspection and normocephalic NOSE: Normal external nose present EXTERNAL EAR: Yes external ears normal MOUTH: Normal oral and palatal mucosa present THROAT: posterior oropharynx normal Eye: COMMON NORMALS: Equal, round and reactive pupils present and EOMs intact bilaterally GENERAL EYE: appearance normal, both eyes and all related structures PUPIL: Yes Equal, round and reactive pupils present DIRECT OPHTHALMOSCOPY: No photophobia Neck/C-Spine: COMMON NORMALS: full ROM, no lymphadenopathy, no meningeal signs and no JVD GENERAL: Yes normal visual inspection Lymph: LYMPHATIC: no lymphadenopathy noted Chest: COMMONS NORMALS: normal inspection of the chest and normal palpation of entire chest wall Resp: COMMON NORMALS: normal respiratory effort, No retractions, No use of accessory muscles, clear to auscultation bilaterally and percussion normal EFFORT & INSPECTION: Yes able to speak in complete sentences AUSCULTATION: clear to auscultation bilaterally PERCUSSION: percussion normal Cardio: COMMON NORMALS: no JVD, regular rate, regular rhythm, S1 normal heart sound present, S2 normal heart sound present and Peripheral pulses 2+ throughout RATE: regular rate RHYTHM: regular rhythm HEART SOUNDS: S1 normal heart sound present and S2 normal heart sound present PERIPHERAL PULSES: Peripheral pulses 2+ throughout GI: COMMON NORMALS: Normal to inspection, nondistended, normoactive bowel sounds present, Soft to palpation, non-tender and no masses INSPECTION: Yes normal to inspection PALPATION: Yes Soft to palpation : COMMON NORMALS: Yes no CVA tenderness BLADDER/KIDNEY EXAM: Yes no CVA tenderness Back/Pelvis: COMMON NORMALS: no CVA tenderness, thoracic and lumbar spine normal to inspection, no thoracic nor lumbar tenderness and thoraco-lumbar ROM normal Extremity: COMMON NORMALS: normal to inspection, full ROM, capillary refill normal, no joint enlargement and no pedal edema GENERAL: Yes normal exam except as noted Neuro: COMMON NORMALS: patient oriented x3, CN's II-XII intact bilaterally, moves all extremities, no focal motor deficits, no sensory deficits noted and gait normal SENSORIUM/ORIENTATION: Yes alert, Yes oriented to person, Yes oriented to place and Yes oriented to time MENINGEAL SIGNS: Yes no meningeal signs Psych: COMMON NORMALS: mental status grossly normal, Normal thought process present, cooperative, normal affect and speech normal APPEARANCE: Yes well kempt ATTITUDE: Yes calm SPEECH: Yes normal speech THOUGHT PROCESS: Normal thought process present Skin: COMMON NORMALS: no rashes or lesions noted GENERAL SKIN EXAM: no rashes or lesions noted Course Vital Signs: Vital signs: Vital Signs Temperature 97.5 F L 12/17/20 21:20 Pulse Rate 64 12/17/20 21:20 Respiratory Rate 18 12/17/20 21:38 Blood Pressure 104/69 12/17/20 21:20 Pulse Oximetry 96 12/17/20 21:20 MDM - Headache MDM Narrative: Medical decision making narrative: CT head and cervical spine showed no acute abnormalities. Chest x-ray was normal. She was satting 90% on room air and did a CT angiogram which showed no acute abnormalities. I was providing critical care to another patient and she asked to leave immediately. She signed AGAINST MEDICAL ADVICE and walked out. Nurse advised her of the risks of worsening condition and she signed and walked out AMA. Lab Data: Labs: Lab Results 12/17/20 12/17/20 12/17/20 Range/Units 16:26 16:42 16:50 WBC 8.5 (4.0-10.0) 10^3/ uL RBC 4.63 (4.1-5.3) 10^6/u L Hgb 13.1 (11.5-15.3) g/dL Hct 42.5 (37.0-47.0) % MCV 91.8 (81-99) fL MCH 28.3 (28.0-34.0) pg MCHC 30.8 (30.0-36.0) g/dL RDW 13.4 (12.1-15.1) % Plt Count 222 (130-400) 10^3/c mm MPV 11.0 H (7.4-10.4) fL Neut % (Auto) 54.6 % Lymph % (Auto) 34.2 % [place] % (Auto) 5.3 % Eos % (Auto) 5.3 % Baso % (Auto) 0.5 % Neut # (Auto) 4.62 (1.8-7.7) 10^3/u L Lymph # (Auto) 2.9 (0.8-4.8) 10^3/u L [place] # (Auto) 0.5 (0.2-0.9) 10^3/u L Eos # (Auto) 0.5 (0.0-0.8) 10^3/u L Baso # (Auto) 0.0 (0.0-0.1) 10^3/u L Nucleated RBC % (a uto) 0 % Nucleated RBCs # 0.0 /100WBC D-Dimer (0-0.59) ug/mIFE U Specimen Type Arterial Sample Site Radial, left ABG pH 7.34 L (7.35-7.45) ABG pCO2 49.9 H (35-45) mmHg ABG pO2 80.9 (80.0-100.0) mmH g ABG HCO3 26.6 H (22-26) mmol/L ABG Base Excess 0.1 (-2.0-2.0) mmol/ L Diogo Test Pos Hematocrit 40.5 (37-47) % Hgb O2 Saturation 94.3 L (95-100) % Carboxyhemoglobin 0.8 (0.4-20.1) %THgb Methemoglobin 0.8 (0.4-1.5) % Total Hemoglobin 13.2 (12-16) g/dL O2 Delivery Device Room air FiO2 21.0 % Preservationist ID Ed Sodium (136-145) mmol/L Potassium (3.5-5.1) mmol/L Chloride (98-107) mmol/L Carbon Dioxide (22-29) mmol/L Anion Gap (5-19) BUN (8-23) mg/dL Creatinine (0.5-0.9) mg/dL GFR Calculation (90-130) mL/min Glucose (65-115) mg/dL Calculated Osmolal ity (285-295) mOsm/k g Lactate (0.5-2.2) mmol/L Calcium (8.5-10.5) mg/dL Total Bilirubin (0.15-1.2) mg/dL AST (0-32) U/L ALT (0-33) U/L Alkaline Phosphata se (35-105) IU/L Troponin T Baselin e (0-10) ng/L Troponin T 120 Min [place] (0-10) ng/L Delta Troponin T (0-10) ABS# NT-Pro-B Natriuret Pep (0-125) pg/mL Total Protein (6.6-8.7) g/dL Albumin (3.5-5.2) g/dL Globulin (1.3-4.6) g/dL Urine Color Straw (Yellow) Urine Appearance Clear (CLEAR) Urine pH 7 (5-7) Ur Specific Gravit y 1.005 (1.005-1.030) Urine Protein Neg (Negative) Urine Glucose (UA) Norm (Normal) Urine Ketones Negative (Negative) Urine Blood Neg (Negative) Urine Nitrate Negative (Negative) Urine Bilirubin Neg (Negative) Urine Urobilinogen Norm (Negative) mg/dL Ur Leukocyte Liv ase Negative (Negative) 12/17/20 12/17/20 12/17/20 Range/Units 16:50 16:50 16:50 WBC (4.0-10.0) 10^3/ uL RBC (4.1-5.3) 10^6/u L Hgb (11.5-15.3) g/dL Hct (37.0-47.0) % MCV (81-99) fL MCH (28.0-34.0) pg MCHC (30.0-36.0) g/dL RDW (12.1-15.1) % Plt Count (130-400) 10^3/c mm MPV (7.4-10.4) fL Neut % (Auto) % Lymph % (Auto) % [place] % (Auto) % Eos % (Auto) % Baso % (Auto) % Neut # (Auto) (1.8-7.7) 10^3/u L Lymph # (Auto) (0.8-4.8) 10^3/u L [place] # (Auto) (0.2-0.9) 10^3/u L Eos # (Auto) (0.0-0.8) 10^3/u L Baso # (Auto) (0.0-0.1) 10^3/u L Nucleated RBC % (a uto) % Nucleated RBCs # /100WBC D-Dimer (0-0.59) ug/mIFE U Specimen Type Sample Site ABG pH (7.35-7.45) ABG pCO2 (35-45) mmHg ABG pO2 (80.0-100.0) mmH g ABG HCO3 (22-26) mmol/L ABG Base Excess (-2.0-2.0) mmol/ L Diogo Test Hematocrit (37-47) % Hgb O2 Saturation (95-100) % Carboxyhemoglobin (0.4-20.1) %THgb Methemoglobin (0.4-1.5) % Total Hemoglobin (12-16) g/dL O2 Delivery Device FiO2 % Preservationist ID Sodium 141 (136-145) mmol/L Potassium 4.3 (3.5-5.1) mmol/L Chloride 104 (98-107) mmol/L Carbon Dioxide 26 (22-29) mmol/L Anion Gap 15.3 (5-19) BUN 10 (8-23) mg/dL Creatinine 0.7 (0.5-0.9) mg/dL GFR Calculation 83.7 L (90-130) mL/min Glucose 106 (65-115) mg/dL Calculated Osmolal ity 291 (285-295) mOsm/k g Lactate 2.0 (0.5-2.2) mmol/L Calcium 8.7 (8.5-10.5) mg/dL Total Bilirubin 0.3 (0.15-1.2) mg/dL AST 34 H (0-32) U/L ALT < 5 (0-33) U/L Alkaline Phosphata se 77 (35-105) IU/L Troponin T Baselin e 7 (0-10) ng/L Troponin T 120 Min [place] (0-10) ng/L Delta Troponin T (0-10) ABS# NT-Pro-B Natriuret Pep 28 (0-125) pg/mL Total Protein 7.1 (6.6-8.7) g/dL Albumin 4.6 (3.5-5.2) g/dL Globulin 2.5 (1.3-4.6) g/dL Urine Color (Yellow) Urine Appearance (CLEAR) Urine pH (5-7) Ur Specific Gravit y (1.005-1.030) Urine Protein (Negative) Urine Glucose (UA) (Normal) Urine Ketones (Negative) Urine Blood (Negative) Urine Nitrate (Negative) Urine Bilirubin (Negative) Urine Urobilinogen (Negative) mg/dL Ur Leukocyte Liv ase (Negative) 12/17/20 12/17/20 Range/Units 17:15 19:10 WBC (4.0-10.0) 10^3/ uL RBC (4.1-5.3) 10^6/u L Hgb (11.5-15.3) g/dL Hct (37.0-47.0) % MCV (81-99) fL MCH (28.0-34.0) pg MCHC (30.0-36.0) g/dL RDW (12.1-15.1) % Plt Count (130-400) 10^3/c mm MPV (7.4-10.4) fL Neut % (Auto) % Lymph % (Auto) % [place] % (Auto) % Eos % (Auto) % Baso % (Auto) % Neut # (Auto) (1.8-7.7) 10^3/u L Lymph # (Auto) (0.8-4.8) 10^3/u L [place] # (Auto) (0.2-0.9) 10^3/u L Eos # (Auto) (0.0-0.8) 10^3/u L Baso # (Auto) (0.0-0.1) 10^3/u L Nucleated RBC % (a uto) % Nucleated RBCs # /100WBC D-Dimer 0.31 (0-0.59) ug/mIFE U Specimen Type Sample Site ABG pH (7.35-7.45) ABG pCO2 (35-45) mmHg ABG pO2 (80.0-100.0) mmH g ABG HCO3 (22-26) mmol/L ABG Base Excess (-2.0-2.0) mmol/ L Diogo Test Hematocrit (37-47) % Hgb O2 Saturation (95-100) % Carboxyhemoglobin (0.4-20.1) %THgb Methemoglobin (0.4-1.5) % Total Hemoglobin (12-16) g/dL O2 Delivery Device FiO2 % Preservationist ID Sodium (136-145) mmol/L Potassium (3.5-5.1) mmol/L Chloride (98-107) mmol/L Carbon Dioxide (22-29) mmol/L Anion Gap (5-19) BUN (8-23) mg/dL Creatinine (0.5-0.9) mg/dL GFR Calculation (90-130) mL/min Glucose (65-115) mg/dL Calculated Osmolal ity (285-295) mOsm/k g Lactate (0.5-2.2) mmol/L Calcium (8.5-10.5) mg/dL Total Bilirubin (0.15-1.2) mg/dL AST (0-32) U/L ALT (0-33) U/L Alkaline Phosphata se (35-105) IU/L Troponin T Baselin e (0-10) ng/L Troponin T 120 Min [place] 9.46 (0-10) ng/L Delta Troponin T 2.46 (0-10) ABS# NT-Pro-B Natriuret Pep (0-125) pg/mL Total Protein (6.6-8.7) g/dL Albumin (3.5-5.2) g/dL Globulin (1.3-4.6) g/dL Urine Color (Yellow) Urine Appearance (CLEAR) Urine pH (5-7) Ur Specific Gravit y (1.005-1.030) Urine Protein (Negative) Urine Glucose (UA) (Normal) Urine Ketones (Negative) Urine Blood (Negative) Urine Nitrate (Negative) Urine Bilirubin (Negative) Urine Urobilinogen (Negative) mg/dL Ur Leukocyte Liv ase (Negative) Discharge Plan Discharge Patient Disposition: Left Against Medical Advice Clinical Impression: Headache Condition: Stable Prescriptions: No Action Belsomra 10 mg tablet 10 mg PO DAILY@21 RF: 0 metformin 500 mg tablet 500 mg PO BID@,16 RF: 0 pregabalin [Lyrica] 100 mg capsule See Rx Instructions .ROUTE .COMPLEX RF: 0 digoxin [Lanoxin] 125 mcg (0.125 mg) tablet 125 mcg PO DAILY@07 RF: 0 carbidopa-levodopa 50-200 mg tablet extended release 2 tab PO BID@,16 RF: 0 paroxetine HCl 20 mg tablet 20 mg PO DAILY@07 RF: 0 Lantus Solostar U-100 Insulin 100 unit/mL (3 mL) insulin pen 20 unit SUBCUT DAILY@21 RF: 0 albuterol sulfate [ProAir HFA] 90 mcg/actuation HFA aerosol inhaler 2 puff INHALATION QID PRN (Reason: Shortness Of Breath) RF: 0 alprazolam 1 mg tablet 1 mg PO TID PRN (Reason: Anxiety) RF: 0 quetiapine [Seroquel] 25 mg tablet 50 mg PO DAILY@21 RF: 0 flecainide 50 mg tablet 50 mg PO Q12H RF: 0 codeine-guaifenesin 10-100 mg/5 mL liquid 10 ml PO Q6H PRN (Reason: cough) Qty: 1200 RF: 2 ipratropium-albuterol 0.5 mg-3 mg(2.5 mg base)/3 mL solution for nebulization 3 ml INHALATION Q6H PRN (Reason: Shortness Of Breath) RF: 0 levalbuterol HCl 1.25 mg/3 mL solution for nebulization 2.5 mg INHALATION Q6H PRN (Reason: unknown) RF: 0 rosuvastatin 10 mg tablet 10 mg PO DAILY@07 RF: 0 budesonide-formoterol [Symbicort] 80-4.5 mcg/actuation HFA aerosol inhaler 2 puff INHALATION BID RF: 0 acetaminophen [Tylenol Extra Strength] 500 mg Tablet 1,000 mg PO PRN RF: 0 fluticasone propionate 50 mcg/actuation [place],Suspension 1 spray INTRANASAL BID@0700,1900 RF: 0 amlodipine 5 mg tablet 5 mg PO DAILY@0800 RF: 0 aspirin 81 mg tablet,delayed release (DR/EC) 81 mg PO DAILY@0800 RF: 0 omeprazole 20 mg capsule,delayed release(DR/EC) 20 mg PO BID@0700,1900 RF: 0 Referrals: Mannie Hart MD [Primary Care Provider] - Coding Level of Care Code ED Wet Process Miller Head Assistant for Chg Fwd Exam Comprehensive
--- NOTE | 2020-12-18 06:29 | PC.NURSE ---
12/17/2020 21:40 -Called to room by pt spouse. Pt and spouse very upset because of extended wait times. Informed pt that everyone in the dept. has had an extended wait time d/t critical patients. Pt spouse informs this RN that he is a justice court judge and there will be a lawsuit, states I know all the director of home health services in [place] and this hospital will be in court, along with the doctors. This RN has apologized on behalf of the staff and hospital. Despite apologies, pt spouse states I am taking my home so she can be comfortable. Pt agrees and also wants to go home. Educated pt and spouse with regards to leaving before treatment is completed. Pt declined to sign the AMA form/leaving prior to complete evaluation and treatment. VSS. Pt leaves department via w/c per this RN. Pt and spouse again informed of possible risks of leaving against medical advice, but still continue with leaving. IV dc'd.
== END 2020-12-17 21:55 | disposition left against medical advice (07) ==
PROVIDERS: Emergency Provider Family Medicine; PCP Family Medicine
DX: R51.9 Headache, unspecified (principal); Z53.21 Procedure and treatment not carried out due to patient leaving prior to being seen by health care provider; Z79.82 Long term (current) use of aspirin; Z79.4 Long term (current) use of insulin; E11.40 Type 2 diabetes mellitus with diabetic neuropathy, unspecified; E78.5 Hyperlipidemia, unspecified; G20 Parkinson's disease; Z77.22 Contact with and (suspected) exposure to environmental tobacco smoke (acute) (chronic)
CPT/HCPCS: 36415; 36600; 70450; 71045; 71275; 72125; 80053; 81003; 82805; 83605; 83880; 84484; 85025; 85378; 93005; 94640; 96374; 96376; 99284; J2270; Q9967

== ENCOUNTER 2021-02-23 13:26 | Outpatient (CLI) | payer MEDICARE, MEDICAID, SELFPAY ==
--- NOTE | 2021-02-23 13:30 | MM_ITS ---
WS: [id number] DIAGNOSTIC BILATERAL DIGITAL MAMMOGRAM WITH CAD RIGHT breast ultrasound, limited HISTORY: 2 palpable areas RIGHT breast. COMPARISON: 12/28/2016 TECHNIQUE: Bilateral craniocaudad, mediolateral oblique, and mediolateral views are submitted. Spot c ompression RIGHT CC and MLO. Computer aided detection utilized. Breast composition: There are scattered areas of fibroglandular density. Very slight increased asymme try in the upper-outer quadrant of the RIGHT breast near the palpable abnormalities. RIGHT breast ultrasound, limited. No masses are identified in the upper-outer quadrant of the RIGHT breast at the palpable abnormalitie s. There is a benign lymph node in the axilla. There is some very slight distortion of the soft tissu es at 10:00. No discrete mass identified. Patient was brought back also on 02/24/2021 to reevaluate an area in the upper-outer quadrant of the R IGHT breast. I personally scanned the upper-outer quadrant of the RIGHT breast and no abnormality was identified of any concerns. There is a very small cyst at 10:00, 1 cm from the nipple which the abner ent was able to palpate. Maximum diameter of 5 mm. Otherwise the ultrasound was negative. MM/[place] [id number] IMPRESSION: BI-RADS: 2-Benign FOLLOW UP: 1 Year Follow-up
== END 2021-02-23 13:27 | disposition home or self-care (01) ==
PROVIDERS: PCP Family Medicine; Visit Provider Family Medicine
DX: N63.11 Unspecified lump in the right breast, upper outer quadrant (principal)
CPT/HCPCS: 76642; 77066

== ENCOUNTER → 2021-03-24 13:59 | Outpatient (BNVA) | payer MEDICARE, MEDICAID, SELFPAY | PROVIDERS: PCP Family Medicine; Visit Provider Specialist | DX: G20 Parkinson's disease (principal) | CPT/HCPCS: 99205 ==

== ENCOUNTER → 2021-06-22 08:11 | Outpatient (BNVA) | payer MEDICARE, MEDICAID, SELFPAY | PROVIDERS: PCP Family Medicine; Referring Provider Nurse Practitioner Family; Visit Provider Specialist | DX: M25.551 Pain in right hip (principal) | CPT/HCPCS: 73502 ==

== ENCOUNTER 2021-06-25 14:59 | Outpatient (CLI) | payer MEDICARE, MEDICAID, SELFPAY ==
--- NOTE | 2021-06-25 15:28 | XR_ITS ---
WS: [id number] DEXA (DUAL ENERGY X-RAY ABSORPTIOMETRY) Bone mineral density was performed using a Fundera machine. HISTORY: POSTMENOPAUSAL COMPARISON: None available. Lumbar spine BMD (L1-L4): 1.150 g/cm2 T score: -0.3 Z score: 1.1 Total hip BMD: Left: 0.820 g/cm2. T score: -1.5 Z score: -0.4 Right: 0.790 g/cm2. T score: -1.7 Z score: -0.6 10 year probability of a major osteoporotic fracture is 12%. XR/XR DEXA axial skeleton* [id number] IMPRESSION: OSTEOPENIA based upon the WHO classification for females.
== END 2021-06-25 15:00 | disposition home or self-care (01) ==
PROVIDERS: PCP Family Medicine; Visit Provider Nurse Practitioner Family
DX: Z78.0 Asymptomatic menopausal state (principal); M85.80 Other specified disorders of bone density and structure, unspecified site
CPT/HCPCS: 77080

== ENCOUNTER 2021-07-04 06:09 | Observation (INO) | payer MEDICARE, MEDICAID, SELFPAY ==
[2021-07-04] VITALS (14 sets, daily range): BP systolic 92–125; BP diastolic 53–73; PULSE 84–106; RESP 17–24; TEMP 36.5–37.5; O2SAT 88–96; BMI 29.0
--- NOTE | 2021-07-04 06:24 | XRR_ITS ---
PROCEDURE INFORMATION: Exam: XR Chest Exam date and time: 07/04/2021 6:24 AM Age: 65 years old Clinical indication: Cough; Additional info: SOB TECHNIQUE: Imaging protocol: XR of the chest. Views: 1 view. COMPARISON: CR XR chest 1V portable [id number] 12/17/2020 4:42 PM FINDINGS: Lungs: Left basilar atelectasis noted. Pneumonia should be excluded clinically. Pleural spaces: Unremarkable. No pleural effusion. No pneumothorax. Heart/Mediastinum: Stable cardiomediastinal silhouette. Bones/joints: Unremarkable. XR/XR chest 1V portable [id number] IMPRESSION: Left basilar atelectasis. Pneumonia should be excluded clinically. Radiation Dose CTDIVOL = (mGy): DLP = (mGy-cm)
--- NOTE | 2021-07-04 06:24 | ECG_ITS ---
[facility] Test Date: 2021-07-04 Pat Name: Chelsea Ruvalcaba Department: Room: Gender: Female Schedule Maker: : [id number] Requested By: Donovan Locke Order Number: [id number] Reading MD: DOMINGA MARAVILLA Measurements Intervals [place] Rate: 87 P: 21 CA: 205 QRS: -29 QRSD: 99 T: 56 QT: 366 QTc: 440 Interpretive Statements SINUS RHYTHM BORDERLINE LEFT AXIS DEVIATION [QRS AXIS < -20] NONSPECIFIC T-WAVE ABNORMALITY Compared to ECG 12/17/2020 16:38:04 First degree AV block no longer present T-wave abnormality still present Electronically Signed On 07-06-2021 12:55:47 SILVER BRAZER by DOMINGA MARAVILLA [email or web address]
--- NOTE | 2021-07-04 06:26 | ED_ITS ---
Documented by User: Donovan Szymanski, 07/04/21 21:36 HPI - COVID General: Chief Complaint: COVID symptoms Stated Complaint: COUGHING/MUSCLE ACHES Time Seen by Provider: 07/04/21 06:22 Triage information: Has fever, cough or shortness of breath . No known COVID + exposure last 14 days History of Present Illness: HPI Narrative: 65-year-old female who has had a history of a chronic cough. For the last several days though, she has noticed an increase in her cough with shortness of breath and body aches. She states that she has had a low-grade fever she believes. Not really any sputum product ion. No known contacts with Covid, although she notes that she has had contact with [employer], and there have been some reported cases. She does not usually use oxygen at home. MD complaint: has COVID symptoms Prior covid testing: no COVID 19 common symptoms: positive fever(s), chills, cough, dyspnea, fatigue, body aches, headache(s), nasal congestion and nausea; negative vomiting or diarrhea COVID 19 other sytmptoms: positive chest pain and requiring oxygen; negative cyanosis, confusion or new neurological complaints Onset (ago): day(s) Pertinent comorbid conditions: diabetes, heart disease and COPD/respiratory disease Treatment prior to arrival: breathing treatments (No significant improvement) COVID Results: SARS-CoV-2 Antigen (Rapid) Negative (Negative) 07/04/21 06:25 07/04/21 SARS-CoV-2 RNA (RT-PCR) Pending 07/04/21 07:34 07/04/21 Nasal/Oral Coronavirus 2019 PCR Not detected 11/24/20 15:47 11/24/20 Review of Systems Const: Reports: fever(s), chills, body aches and fatigue ENMT: Reports: nasal congestion Card: Reports: chest pain Resp: Reports: dyspnea GI: Reports: nausea; Denies: vomiting or diarrhea Neuro: Reports: headache(s); Denies: confusion PFSH ED PFSH: Medical History (Updated 07/04/21 @ 14:41 by Toby Palencia MD) Anxiety Cataract Chronic cough Depression Diabetes mellitus Diabetic neuropathy Fibromyalgia GERD (gastroesophageal reflux disease) Hyperlipidemia Hypotension Idiopathic Parkinson's disease Insomnia Paroxysmal supraventricular tachycardia SVT (supraventricular tachycardia) TMJ (temporomandibular joint disorder) Tremor Trochanteric bursitis of right hip Surgical History H/O dilation and curettage H/O tubal ligation History of appendectomy History of cholecystectomy History of hysterectomy History of neck surgery Hx of cataract surgery Family History Grandmother Diabetes Social History Second hand smoke exposure: Yes Alcohol intake: never Lives independently: Yes Household members: spouse Marital status: Current occupational status: disabled History of recent travel: No Current gender identity: Female Physical Exam Const: COMMON NORMALS: patient oriented x3 and alert GENERAL APPEARANCE: cooperative, well kempt and ill appearing Eye: COMMON NORMALS: Equal, round and reactive pupils present and EOMs intact bilaterally PUPIL: Yes Equal, round and reactive pupils present Chest: COMMONS NORMALS: normal inspection of the chest Resp: EFFORT & INSPECTION: Yes tachypneic, Yes labored and Yes Actively coughing AUSCULTATION: crackles (Clear with cough) Cardio: COMMON NORMALS: regular rate and regular rhythm RATE: regular rate RHYTHM: regular rhythm GI: COMMON NORMALS: Normal to inspection, nondistended, normoactive bowel sounds present and Soft to palpation PALPATION: Yes Soft to palpation Extremity: COMMON NORMALS: no pedal edema Neuro: COMMON NORMALS: patient oriented x3 SENSORIUM/ORIENTATION: Yes alert Psych: APPEARANCE: Yes well kempt Course Vital Signs: Vital signs: Vital Signs Temperature 99.5 F 07/04/21 18:28 Pulse Rate 106 H 07/04/21 21:27 Respiratory Rate 18 07/04/21 21:16 Blood Pressure 92/56 07/04/21 18:28 Pulse Oximetry 95 07/04/21 21:16 MDM - COVID MDM Narrative: Medical decision making narrative: 65-year-old female with a history of chronic cough. She has been seen by pulmonary, and has had pulmonary function testing. She presents with cough, shortness of breath, fevers, body aches, and malaise for the past few days. Breathing treatments have not helped. Testing is pending. Serum testing is pending as well. Chest x-ray appears clear. Lab Data: Labs: Lab Results 07/04/21 07/04/21 07/04/21 06:25 06:44 06:44 WBC 7.1 10^3/uL 10^3/ uL (4.0-10.0) RBC 4.34 10^6/uL 10^6 /uL (4.1-5.3) Hgb 12.8 g/dL g/dL (11.5-15.3) Hct 40.7 % % (37.0-47.0) MCV 93.8 fl fl (81-99) MCH 29.5 pg pg (28.0-34.0) MCHC 31.4 g/dL g/dL (30.0-36.0) RDW 14.2 % % (12.1-15.1) Plt Count 174 10^3/cmm 10^3 /cmm (130-400) MPV 11.2 fL H fL (7.4-10.4) Neut % (Auto) 68.0 % % Lymph % (Auto) 13.9 % % B[place] % (Auto) 7.9 % % Eos % (Auto) 9.5 % % Baso % (Auto) 0.6 % % Neut # (Auto) 4.79 10^3/uL 10^3 /uL (1.8-7.7) Lymph # (Auto) 1.0 10^3/uL 10^3/ uL (0.8-4.8) B[place] # (Auto) 0.6 10^3/uL 10^3/ uL (0.2-0.9) Eos # (Auto) 0.7 10^3/uL 10^3/ uL (0.0-0.8) Baso # (Auto) 0.0 10^3/uL 10^3/ uL (0.0-0.1) Nucleated RBC % (a uto) 0 % % Nucleated RBCs # 0.0 /100WBC /100W BC D-Dimer 1.00 ug/mIFEU H u g/mIFEU (0-0.59) Specimen Type Sample Site ABG pH ABG pCO2 ABG pO2 ABG HCO3 ABG O2 Saturation ABG Base Excess Diogo Test A-a O2 Gradient Hematocrit Hgb O2 Saturation Carboxyhemoglobin Methemoglobin Total Hemoglobin Ionized Calcium O2 Delivery Device O2 Liters/Min FiO2 Terrazzo Worker Helper ID Sodium Potassium Chloride Carbon Dioxide Anion Gap BUN Creatinine GFR Calculation Glucose Calculated Osmolal ity Lactic Acid Calcium Total Bilirubin AST ALT Alkaline Phosphata se C-Reactive Protein NT-Pro-B Natriuret Pep Total Protein Albumin Globulin Procalcitonin Nasal/Oral COVID-1 9 PCR Influenza Type A A g Influenza Type B A g SARS-CoV-2 Ag (Rap id) Negative (Negative) 07/04/21 07/04/21 07/04/21 06:44 06:44 07:34 WBC RBC Hgb Hct MCV MCH MCHC RDW Plt Count MPV Neut % (Auto) Lymph % (Auto) [place] % (Auto) Eos % (Auto) Baso % (Auto) Neut # (Auto) Lymph # (Auto) [place] # (Auto) Eos # (Auto) Baso # (Auto) Nucleated RBC % (a uto) Nucleated RBCs # D-Dimer Specimen Type Sample Site ABG pH ABG pCO2 ABG pO2 ABG HCO3 ABG O2 Saturation ABG Base Excess Diogo Test A-a O2 Gradient Hematocrit Hgb O2 Saturation Carboxyhemoglobin Methemoglobin Total Hemoglobin Ionized Calcium O2 Delivery Device O2 Liters/Min FiO2 Terrazzo Worker Helper ID Sodium 139 mmol/L mmol/L (136-145) Potassium 4.0 mmol/L mmol/L (3.5-5.1) Chloride 101 mmol/L mmol/L (98-107) Carbon Dioxide 23 mmol/L mmol/L (22-29) Anion Gap 19.0 (5-19) BUN 12 mg/dL mg/dL (8-23) Creatinine 0.6 mg/dL mg/dL (0.5-0.9) GFR Calculation 100.0 mL/min mL/m in (90-130) Glucose 105 mg/dL mg/dL (65-115) Calculated Osmolal ity 288 mOsm/kg mOsm/ kg (285-295) Lactic Acid 1.9 mmol/L mmol/L (0.5-2.2) Calcium 8.2 mg/dL L mg/dL (8.5-10.5) Total Bilirubin 0.3 mg/dL mg/dL (0.15-1.2) AST 30 U/L U/L (0-32) ALT 17 U/L U/L (0-33) Alkaline Phosphata se 68 IU/L IU/L (35-105) C-Reactive Protein 17.5 mg/L H mg/L (0.0-4.9) NT-Pro-B Natriuret Pep 46 pg/mL pg/mL (0-125) Total Protein 6.8 g/dL g/dL (6.6-8.7) Albumin 4.6 g/dL g/dL (3.5-5.2) Globulin 2.2 g/dL g/dL (1.3-4.6) Procalcitonin 0.16 ng/mL ng/mL (0-0.5) Nasal/Oral COVID-1 9 PCR Influenza Type A A g Negative (Negative) Influenza Type B A g Negative (Negative) SARS-CoV-2 Ag (Rap id) 07/04/21 07/04/21 07:34 08:10 WBC RBC Hgb Hct MCV MCH MCHC RDW Plt Count MPV Neut % (Auto) Lymph % (Auto) Barrow % (Auto) Eos % (Auto) Baso % (Auto) Neut # (Auto) Lymph # (Auto) [place] # (Auto) Eos # (Auto) Baso # (Auto) Nucleated RBC % (a uto) Nucleated RBCs # D-Dimer Specimen Type Arterial Sample Site Radial, left ABG pH 7.38 (7.35-7.45) ABG pCO2 44.1 mmHg mmHg (35-45) ABG pO2 80.5 mmHg mmHg (80.0-100.0) ABG HCO3 26.3 mmol/L H mmo l/L (22-26) ABG O2 Saturation 96.6 ABG Base Excess 0.9 mmol/L mmol/L (-2.0-2.0) Diogo Test Pos A-a O2 Gradient 12.0 mmHg H mmHg (5-10) Hematocrit 38.8 % % (37-47) Hgb O2 Saturation 95.2 % % (95-100) Carboxyhemoglobin 0.8 %THgb %THgb (0.4-20.1) Methemoglobin 0.7 % % (0.4-1.5) Total Hemoglobin 12.7 g/dL g/dL (12-16) Ionized Calcium 1.2 mmol/L mmol/L (1.1-1.4) O2 Delivery Device Nc O2 Liters/Min 3.0 % % FiO2 32.0 % % Terrazzo Worker Helper ID Ed Sodium 141.0 mmol/L mmol /L (131-143) Potassium 3.9 mmol/L mmol/L (3.5-5.0) Chloride Carbon Dioxide Anion Gap BUN Creatinine GFR Calculation Glucose 111.0 mg/dL mg/dL (70-115) Calculated Osmolal ity Lactic Acid Calcium Total Bilirubin AST ALT Alkaline Phosphata se C-Reactive Protein NT-Pro-B Natriuret Pep Total Protein Albumin Globulin Procalcitonin Nasal/Oral COVID-1 9 PCR Cancelled Influenza Type A A g Influenza Type B A g SARS-CoV-2 Ag (Rap id) COVID Results: SARS-CoV-2 Antigen (Rapid) Negative (Negative) 07/04/21 06:25 07/04/21 SARS-CoV-2 RNA (RT-PCR) Pending 07/04/21 07:34 07/04/21 Nasal/Oral Coronavirus 2019 PCR Not detected 11/24/20 15:47 11/24/20 Discharge Plan Discharge Patient Disposition: Admitted As Inpatient Admit Provider: Toby Palencia Clinical Impression: Acute exacerbation of chronic obstructive pulmonary disease, Pneumonia, Hypoxia Condition: Stable Sign Out Sign Out Data: Patient Sign Out occurred on 07/04/21 at 07:03. Patient's care was discussed, and care was transferred from to Raza Johnson DO. Coding Level of Care Code ED Social Psychologist for Chg Fwd Exam Detailed Documented by User: Raza Johnson DO 07/04/21 15:25 HPI - COVID General: Chief Complaint: COVID symptoms Stated Complaint: COUGHING/MUSCLE ACHES Time Seen by Provider: 07/04/21 06:22 COVID Results: SARS-CoV-2 Antigen (Rapid) Negative (Negative) 07/04/21 06:25 07/04/21 SARS-CoV-2 RNA (RT-PCR) Pending 07/04/21 07:34 07/04/21 Nasal/Oral Coronavirus 2019 PCR Not detected 11/24/20 15:47 11/24/20 PFS ED PFSH: Medical History (Updated 07/04/21 @ 14:41 by Toby Palencia MD) Anxiety Cataract Chronic cough Depression Diabetes mellitus Diabetic neuropathy Fibromyalgia GERD (gastroesophageal reflux disease) Hyperlipidemia Hypotension Idiopathic Parkinson's disease Insomnia Paroxysmal supraventricular tachycardia SVT (supraventricular tachycardia) TMJ (temporomandibular joint disorder) Tremor Trochanteric bursitis of right hip Surgical History H/O dilation and curettage H/O tubal ligation History of appendectomy History of cholecystectomy History of hysterectomy History of neck surgery Hx of cataract surgery Family History Grandmother Diabetes Social History Second hand smoke exposure: Yes Alcohol intake: never Lives independently: Yes Household members: spouse Marital status: Current occupational status: disabled History of recent travel: No Current gender identity: Female Course Vital Signs: Vital signs: Vital Signs Temperature 99.5 F 07/04/21 18:28 Pulse Rate 106 H 07/04/21 21:27 Respiratory Rate 18 07/04/21 21:16 Blood Pressure 92/56 07/04/21 18:28 Pulse Oximetry 95 07/04/21 21:16 MDM - COVID MDM Narrative: Medical decision making narrative: Patient now requiring 3 L to maintain oxygen sat is 93 to 95% where previously she was not. There is not a clear etiology of the cause of her hypoxia. She does have some underlying COPD but is not normally on oxygen and is rapidly deteriorated and a short course of just 2 to 3 days of worsening symptoms. She has underlying respiratory issues that have been difficult to manage at this point. There is a question of pneumonia on her CTA but no PEs and no groundglass infiltrates. She may very well have early COVID although there is not a lot of clinical evidence of it my concern is a rapid deterioration over just a couple of days requiring oxygen in someone who does not normally require oxygen. I would recommend that she be admitted to the hospital start on prophylactic antibiotics and steroids. Have also given her a dose of Lasix to see if we can improve the effusions. discussed with Dr. Palencia ar [id number] Lab Data: Labs: Lab Results 07/04/21 07/04/2107/04/21 06:25 06:44 06:44 WBC 7.1 10^3/uL 10^3/ uL (4.0-10.0) RBC 4.34 10^6/uL 10^6 /uL (4.1-5.3) Hgb 12.8 g/dL g/dL (11.5-15.3) Hct 40.7 % % (37.0-47.0) MCV 93.8 fl fl (81-99) MCH 29.5 pg pg (28.0-34.0) MCHC 31.4 g/dL g/dL (30.0-36.0) RDW 14.2 % % (12.1-15.1) Plt Count 174 10^3/cmm 10^3 /cmm (130-400) MPV 11.2 fL H fL (7.4-10.4) Neut % (Auto) 68.0 % % Lymph % (Auto) 13.9 % % B[place] % (Auto) 7.9 % % Eos % (Auto) 9.5 % % Baso % (Auto) 0.6 % % Neut # (Auto) 4.79 10^3/uL 10^3 /uL (1.8-7.7) Lymph # (Auto) 1.0 10^3/uL 10^3/ uL (0.8-4.8) Barrow # (Auto) 0.6 10^3/uL 10^3/ uL (0.2-0.9) Eos # (Auto) 0.7 10^3/uL 10^3/ uL (0.0-0.8) Baso # (Auto) 0.0 10^3/uL 10^3/ uL (0.0-0.1) Nucleated RBC % (a uto) 0 % % Nucleated RBCs # 0.0 /100WBC /100W BC D-Dimer 1.00 ug/mIFEU H u g/mIFEU (0-0.59) Specimen Type Sample Site ABG pH ABG pCO2 ABG pO2 ABG HCO3 ABG O2 Saturation ABG Base Excess Diogo Test A-a O2 Gradient Hematocrit Hgb O2 Saturation Carboxyhemoglobin Methemoglobin Total Hemoglobin Ionized Calcium O2 Delivery Device O2 Liters/Min FiO2 Terrazzo Worker Helper ID Sodium Potassium Chloride Carbon Dioxide Anion Gap BUN Creatinine GFR Calculation Glucose Calculated Osmolal ity Lactic Acid Calcium Total Bilirubin AST ALT Alkaline Phosphata se C-Reactive Protein NT-Pro-B Natriuret Pep Total Protein Albumin Globulin Procalcitonin Nasal/Oral COVID-1 9 PCR Influenza Type A A g Influenza Type B A g SARS-CoV-2 Ag (Rap id) Negative (Negative) 07/04/21 07/04/21 07/04/21 06:44 06:44 07:34 WBC RBC Hgb Hct MCV MCH MCHC RDW Plt Count MPV Neut % (Auto) Lymph % (Auto) [place] % (Auto) Eos % (Auto) Baso % (Auto) Neut # (Auto) Lymph # (Auto) [place] # (Auto) Eos # (Auto) Baso # (Auto) Nucleated RBC % (a uto) Nucleated RBCs # D-Dimer Specimen Type Sample Site ABG pH ABG pCO2 ABG pO2 ABG HCO3 ABG O2 Saturation ABG Base Excess Diogo Test A-a O2 Gradient Hematocrit Hgb O2 Saturation Carboxyhemoglobin Methemoglobin Total Hemoglobin Ionized Calcium O2 Delivery Device O2 Liters/Min FiO2 Terrazzo Worker Helper ID Sodium 139 mmol/L mmol/L (136-145) Potassium 4.0 mmol/L mmol/L (3.5-5.1) Chloride 101 mmol/L mmol/L (98-107) Carbon Dioxide 23 mmol/L mmol/L (22-29) Anion Gap 19.0 (5-19) BUN 12 mg/dL mg/dL (8-23) Creatinine 0.6 mg/dL mg/dL (0.5-0.9) GFR Calculation 100.0 mL/min mL/m in (90-130) Glucose 105 mg/dL mg/dL (65-115) Calculated Osmolal ity 288 mOsm/kg mOsm/ kg (285-295) Lactic Acid 1.9 mmol/L mmol/L (0.5-2.2) Calcium 8.2 mg/dL L mg/dL (8.5-10.5) Total Bilirubin 0.3 mg/dL mg/dL (0.15-1.2) AST 30 U/L U/L (0-32) ALT 17 U/L U/L (0-33) Alkaline Phosphata se 68 IU/L IU/L (35-105) C-Reactive Protein 17.5 mg/L H mg/L (0.0-4.9) NT-Pro-B Natriuret Pep 46 pg/mL pg/mL (0-125) Total Protein 6.8 g/dL g/dL (6.6-8.7) Albumin 4.6 g/dL g/dL (3.5-5.2) Globulin 2.2 g/dL g/dL (1.3-4.6) Procalcitonin 0.16 ng/mL ng/mL (0-0.5) Nasal/Oral COVID-1 9 PCR Influenza Type A A g Negative (Negative) Influenza Type B A g Negative (Negative) SARS-CoV-2 Ag (Rap id) 07/04/21 07/04/21 07:34 08:10 WBC RBC Hgb Hct MCV MCH MCHC RDW Plt Count MPV Neut % (Auto) Lymph % (Auto) [place] % (Auto) Eos % (Auto) Baso % (Auto) Neut # (Auto) Lymph # (Auto) [place] # (Auto) Eos # (Auto) Baso # (Auto) Nucleated RBC % (a uto) Nucleated RBCs # D-Dimer Specimen Type Arterial Sample Site Radial, left ABG pH 7.38 (7.35-7.45) ABG pCO2 44.1 mmHg mmHg (35-45) ABG pO2 80.5 mmHg mmHg (80.0-100.0) ABG HCO3 26.3 mmol/L H mmo l/L (22-26) ABG O2 Saturation 96.6 ABG Base Excess 0.9 mmol/L mmol/L (-2.0-2.0) Diogo Test Pos A-a O2 Gradient 12.0 mmHg H mmHg (5-10) Hematocrit 38.8 % % (37-47) Hgb O2 Saturation 95.2 % % (95-100) Carboxyhemoglobin 0.8 %THgb %THgb (0.4-20.1) Methemoglobin 0.7 % % (0.4-1.5) Total Hemoglobin 12.7 g/dL g/dL (12-16) Ionized Calcium 1.2 mmol/L mmol/L (1.1-1.4) O2 Delivery Device Nc O2 Liters/Min 3.0 % % FiO2 32.0 % % Terrazzo Worker Helper ID Ed Sodium 141.0 mmol/L mmol /L (131-143) Potassium 3.9 mmol/L mmol/L (3.5-5.0) Chloride Carbon Dioxide Anion Gap BUN Creatinine GFR Calculation Glucose 111.0 mg/dL mg/dL (70-115) Calculated Osmolal ity Lactic Acid Calcium Total Bilirubin AST ALT Alkaline Phosphata se C-Reactive Protein NT-Pro-B Natriuret Pep Total Protein Albumin Globulin Procalcitonin Nasal/Oral COVID-1 9 PCR Cancelled Influenza Type A A g Influenza Type B A g SARS-CoV-2 Ag (Rap id) COVID Results: SARS-CoV-2 Antigen (Rapid) Negative (Negative) 07/04/21 06:25 07/04/21 SARS-CoV-2 RNA (RT-PCR) Pending 07/04/21 07:34 07/04/21 Nasal/Oral Coronavirus 2019 PCR Not detected 11/24/20 15:47 11/24/20 Discharge Plan Discharge Patient Disposition: Admitted As Inpatient Admit Provider: Toby Palencia Clinical Impression: Acute exacerbation of chronic obstructive pulmonary disease, Pneumonia, Hypoxia Condition: Stable Sign Out Sign Out Data: Patient Sign Out occurred on 07/04/21 at 07:03. Patient's care was discussed, and care was transferred from to Raza Johnson DO. Coding Level of Care Code ED Social Psychologist for Zaida Fwviviana Exam Detailed
[2021-07-04 06:47] LABS: SARS Covid-2 Antigen Negative (Negative)
[2021-07-04 06:57] LABS: Basophils % 0.6 %; Eosinophils # 0.7 10^3/uL (0.0-0.8); Eosinophils % 9.5 %; Hematocrit 40.7 % (37.0-47.0); Hemoglobin 12.8 g/dL (11.5-15.3); Lymphocytes % 13.9 %; Mean Corpuscular HGB Conc 31.4 g/dL (30.0-36.0); Mean Corpuscular Hemoglobin 29.5 pg (28.0-34.0); Mean Corpuscular Volume 93.8 fl (81-99); Mean Platelet Volume 11.2 fL (7.4-10.4); Monocytes # 0.6 10^3/uL (0.2-0.9); Monocytes % 7.9 %; Neutrophils # 4.79 10^3/uL (1.8-7.7); Nucleated Red Blood Cells % 0 %; Platelet Count 174 10^3/cmm (130-400); Red Blood Count 4.34 10^6/uL (4.1-5.3); Red Cell Distribution Width 14.2 % (12.1-15.1); White Blood Count 7.1 10^3/uL (4.0-10.0)
[2021-07-04 07:32] LABS: Lactic Sepsis W/Reflex 1.9 mmol/L (0.5-2.2)
[2021-07-04 08:19] LABS: ABG PCO2 44.1 mmHg (35-45); ABG PH Result 7.38 (7.35-7.45); Arterial Blood Gas Hematocrit 38.8 % (37-47); Base Excess ABG 0.9 mmol/L (-2.0-2.0); Blood Gas Allen Test Pos; Blood Gas Sample Type Arterial; Carboxyhemoglobin 0.8 %THgb (0.4-20.1); HCO3 ABG 26.3 mmol/L (22-26); HGB O2 Sat 95.2 % (95-100); Ionized Calcium Level - ABG 1.2 mmol/L (1.1-1.4); Methemoglobin 0.7 % (0.4-1.5); Oxygen Saturation ABG 96.6; PO2 ABG 80.5 mmHg (80.0-100.0); Potassium Level - ABG 3.9 mmol/L (3.5-5.0); Total Hemoglobin 12.7 g/dL (12-16)
[2021-07-04 08:21] LABS: Blood Gas Operator Identificat ED; Blood Gas Sample Site Radial, left; Oxygen Device NC
[2021-07-04 08:24] LABS: Influenza A by IFA Negative (Negative); Influenza B by IFA Negative (Negative)
--- NOTE | 2021-07-04 08:31 | CTR_ITS ---
PROCEDURE INFORMATION: Exam: CTA Chest With Contrast Exam date and time: 07/04/2021 8:31 AM Age: 65 years old Clinical indication: Cough and shortness of breath; Patient HX: Cough, SOB x months; Additional info: Cough/dyspnea TECHNIQUE: Imaging protocol: Computed tomographic angiography of the chest with contrast. 3D rendering (Not supervised by radiologist): MIP and/or 3D reconstructed images were created by the technologist. Radiation optimization: All CT scans at this facility use at least one of these dose optimization techniques: automated exposure control; mA and/or kV adjustment per patient size (includes targeted exams where dose is matched to clinical indication); or iterative reconstruction. Contrast material: OMNI 350; Contrast volume: 95 ml; Contrast route: INTRAVENOUS (IV); COMPARISON: CT angio chest PE protcl [id number] 12/17/2020 5:44 PM RADIATION DOSE METRICS: Total DLP (mGy-cm): 504.57 FINDINGS: Pulmonary arteries: Normal. No pulmonary emboli. Aorta: Unremarkable. No aortic aneurysm. No aortic dissection. Great vessels off aortic arch: Aberrant anatomy of the right subclavian artery is incidentally noted. Lungs: See Pleural spaces finding. Pleural spaces: There is slight mosaic pattern of attenuation of the lower lungs, in association with mild paraseptal thickening and small bilateral pleural effusions. Tiny calcified granulomas noted in the right lung. No consolidation. Heart: Unremarkable. No cardiomegaly. No pericardial effusion. Lymph nodes: Small reactive lymph nodes are noted in the hilar region bilaterally. There is a small calcified lymph nodes in the right hilar region, likely sequela of previous granulomatous disease. No lymphadenopathy. Liver: The liver is diffusely decreased in density, compatible with hepatic steatosis. No discrete mass lesion identified. Bones/joints: Unremarkable. No acute fracture. Soft tissues: Unremarkable. CT/CT angio chest PE protcl [id number] IMPRESSION: 1. No pulmonary embolus. 2. Imaging findings of mild pulmonary congestion with small bilateral pleural effusions. 3. Bibasilar atelectasis. Pneumonia should be excluded clinically. Radiation Dose CTDIVOL = (mGy): DLP = 504.57 (mGy-cm)
[2021-07-04 08:55] LABS: NT Pro B Type Natriuretic Pept 46 pg/mL (0-125); Procalcitonin 0.16 ng/mL (0-0.5)
[2021-07-04 09:07] LABS: Alanine Aminotransferase 17 U/L (0-33); Albumin Level 4.6 g/dL (3.5-5.2); Alkaline Phosphatase 68 IU/L (35-105); Aspartate Amino Transferase 30 U/L (0-32); Blood Urea Nitrogen 12 mg/dL (8-23); C Reactive Protein 17.5 mg/L (0.0-4.9); Calcium 8.2 mg/dL (8.5-10.5); Carbon Dioxide 23 mmol/L (22-29); Chloride 101 mmol/L (98-107); Creatinine Clr Calc Pharmacy 64.3288; Globulin 2.2 g/dL (1.3-4.6); Glucose 105 mg/dL (65-115); Osmolality Calculated 288 mOsm/kg (285-295); Sodium 139 mmol/L (136-145); Total Bilirubin 0.3 mg/dL (0.15-1.2); Total Protein 6.8 g/dL (6.6-8.7)
[2021-07-04] MEDS: iohexol 350 mg/mL 100 mL Btl IV (09:31)
[2021-07-04] MEDS: FUROsemide 10 mg/mL SDV 4mL 40 MG IVP (11:17)
[2021-07-04] MEDS: dexamethasone 10 mg/mL INJ IVP (11:18)
[2021-07-04] MEDS: levofloxacin-dextrose 5 % 750 MG/150 ML PREMIX 100 MG IV (11:18)
[2021-07-04] MEDS: LORazepam 1 mg Tablet PO (12:27)
--- NOTE | 2021-07-04 14:18 | PM.HP ---
Providers/Chief Complaint Primary Care Provider: Mannie Hart MD Chief Complaint: COUGHING/MUSCLE ACHES History of Present Illness Chelsea Ruvalcaba is a 65 year old female with past medical history of diabetes , chronic cough, SVT, came in with chief complaint of worsening nonproductive cough, worsening shortness of breath, subjective fever, weakness, chest pain while coughing, generalized body pain, the symptoms has been going on for last 6 to 7 days, positive history of [facility] in the [facility]. Upon arrival in the ER she was worked up for above-mentioned complaint. Pertinent imaging studies. CTA chest: No pulmonary embolus.small bilateral pleural effusions. Bibasilar atelectasis. XR chest:Left basilar atelectasis. EKG : Sinus rhythm Pertinent labs: WBC 7.1, H&H:12.8/4.7, PLT : 174 , serum sodium 139 serum potassium 4 BUN/ serum creatinine:12/6 , lactic acid 1.9 , CRP 17.5, proBNP:46, procalcitonin 0.16 Influenza negative, rapid antigen negative, Covid PCR pending ABG: pH: 7.38 PCO2 44 PO2 80, FIO2:32 % In the ER Patient was given : Lasix 40 IV one-time dose, levofloxacin 750 mg IV one-time dose, dexamethasone 10 mg IV one-time dose. Review of Systems Const: Denies: change in appetite or diaphoresis Card: Denies: palpitations, edema, swelling of feet/ankles or leg pain with exertion Resp: Denies: wheezing GI: Denies: abdominal pain, nausea, vomiting, diarrhea or constipation : Denies: flank pain Musc: Denies: back pain, extremity pain or extremity swelling Neuro: Denies: headache(s), difficulty walking or confusion Medications/Allergies Home Medications Medication Instructions Recorded Confirmed Last Taken Type albuterol sulfate 90 mcg/actuation 2 puff INHALATION QID PRN 01/17/20 07/04/21 12/17/20 History aerosol inhaler alprazolam 1 mg tablet 1 mg PO TID PRN 01/17/20 07/04/21 12/17/20 History carbidopa ER 50 mg-levodopa 200 mg 2 tab PO BID@07,16 tab 01/17/20 07/04/21 07/04/21 History tablet,extended release digoxin 125 mcg (0.125 mg) tablet 125 mcg PO DAILY@07 01/17/20 07/04/21 07/04/21 History flecainide 50 mg tablet 50 mg PO Q12H 01/17/20 07/04/21 07/04/21 History insulin glargine 100 unit/mL (3 20 unit SUBCUT DAILY@01/17/20 07/04/21 07/03/21 History mL) subcutaneous pen metformin 500 mg tablet 500 mg PO BID@,16 01/17/20 07/04/21 07/04/21 History paroxetine HCl 20 mg tablet 20 mg PO DAILY@01/17/20 07/04/21 07/03/21 History pregabalin 100 mg capsule 200 mg PO BID 01/17/20 07/04/21 07/03/21 History quetiapine 25 mg tablet 50 mg PO DAILY@21 tab 01/17/20 07/04/21 07/03/21 History suvorexant 10 mg tablet 10 mg PO DAILY@21 tab 01/17/20 07/04/21 07/03/21 History acetaminophen [Tylenol Extra 1,000 mg PO DAILY PRN 09/04/20 07/04/21 12/16/20 History Strength] rosuvastatin 10 mg PO DAILY@09/04/20 07/04/21 07/04/21 History codeine 10 mg-guaifenesin 100 mg/5 10 ml PO Q6H PRN #1200 ml 11/06/20 07/04/21 12/17/20 Rx mL oral liquid omeprazole 20 mg PO BID@0700,1900 12/17/20 07/04/21 07/04/21 History fluticasone propionate 50 See Rx Instructions .ROUTE 01/27/21 07/04/21 Unknown Rx mcg/actuation nasal .COMPLEX #48 milliliter spray,suspension amlodipine 5 mg tablet 2.5 mg PO DAILY@0800 PRN tab 03/24/21 07/04/21 Unknown History ipratropium bromide 17 1 puff INHALATION QID 05/14/21 07/04/21 Unknown History mcg/actuation HFA aerosol inhaler benzonatate 100 mg capsule See Rx Instructions .ROUTE 05/19/21 07/04/21 Unknown Rx .COMPLEX #90 cap Allergies Allergy/AdvReac Type Severity Reaction Status Date / Time cephalexin [From Keflex] Allergy Severe ALGY-Rash Verified 06/22/21 08:11 Cephalosporins Allergy Severe ALGY-Rash Verified 06/22/21 08:11 PFSH Acute PFSH: Medical History (Updated 07/04/21 @ 14:41 by Toby Palencia MD) Anxiety Cataract Chronic cough Depression Diabetes mellitus Diabetic neuropathy Fibromyalgia GERD (gastroesophageal reflux disease) Hyperlipidemia Hypotension Idiopathic Parkinson's disease Insomnia Paroxysmal supraventricular tachycardia SVT (supraventricular tachycardia) TMJ (temporomandibular joint disorder) Tremor Trochanteric bursitis of right hip Surgical History H/O dilation and curettage H/O tubal ligation History of appendectomy History of cholecystectomy History of hysterectomy History of neck surgery Hx of cataract surgery Family History Grandmother Diabetes Social History Second hand smoke exposure: Yes Alcohol intake: never Lives independently: Yes Household members: spouse Marital status: Current occupational status: disabled History of recent travel: No Current gender identity: Female Vitals/I&O/Wt Last Vital Signs Temp 97.7 F 07/04/21 06:14 Pulse 87 07/04/21 09:02 Resp 20 H 07/04/21 08:38 BP 125/73 07/04/21 06:14 Pulse Ox 95 07/04/21 08:38 Weight last 48 hrs Weight 72.121 kg Physical Exam Const: COMMON NORMALS: patient oriented x3 HENMT: COMMON NORMALS: normocephalic and atraumatic HEAD & SCALP: normocephalic and atraumatic Resp: OTHER: Diminished bilateral air entry Cardio: COMMON NORMALS: regular rate, regular rhythm, S1 normal heart sound present, S2 normal heart sound present, No gallops present (Cardio), No murmurs present (Cardio), No rub (Cardio) and Peripheral pulses 2+ throughout RATE: regular rate RHYTHM: regular rhythm HEART SOUNDS: S1 normal heart sound present and S2 normal heart sound present PERIPHERAL PULSES: Peripheral pulses 2+ throughout GI: COMMON NORMALS: Normal to inspection, nondistended, normoactive bowel sounds present, Soft to palpation, non-tender, No hepatosplenomegaly present and no masses AUSCULTATION: Yes normoactive bowel sounds PALPATION: Yes Soft to palpation and Yes No hepatosplenomegaly present RECTAL EXAM: deferred Extremity: COMMON NORMALS: no clubbing, cyanosis or edema and no pedal edema Neuro: COMMON NORMALS: patient oriented x3 Data : 07/04/21 06:44 07/04/21 06:44 Micro: Microbiology 07/04/21 06:46 Blood Culture - Preliminary Blood SPECIMEN COLLECTED 07/04/21 06:44 Blood Culture - Preliminary Blood SPECIMEN COLLECTED A&P Assessment and plan (1) Pneumonia: Status: Acute (2) Chronic cough: Status: Acute (3) Diabetes mellitus: Status: Acute (4) Hypertension: Status: Acute (5) GERD (gastroesophageal reflux disease): Status: Acute Additional A&P Information 65 year old female with past medical history of diabetes , chronic cough, SVT, came in with chief complaint of worsening nonproductive cough, worsening shortness of breath, subjective fever, weakness, chest pain while coughing, generalized body pain, the symptoms has been going on for last 6 to 7 days, positive history of [facility] exposure in the [facility]. #Pneumonia: Patient presented with worsening shortness of breath, worsening cough,from baseline , subjective fever, new supplemental oxygen requirement. X-ray chest: Suggestive of possible infiltrates. Follow Blood culture Monitor x-ray chest Monitor ABG Sputum culture Urine Legionella antigen Bacterial antigen panel Covid PCR Continue levofloxacin Supplemental oxygen as needed Antitussives Duo nebs Diabetes: Lantus 20 units subcu daily LDSSI Carbohydrate consistent diet Monitor fingerstick glucose History of SVT: Continue digoxin, continue flecainide Attestations Medical Necessity Statement*: Patient needs to be in hospital for management of pneumonia. Anticipated length of stay greater than 2 midnights. Coding Level of Care Code Acute [employer] for [facility] Diagnoses Pneumonia J18.9 Chronic cough R05 Diabetes mellitus E11.9 Hypertension I10 GERD (gastroesophageal reflux disease) K21.9
[2021-07-04] MEDS: ipratropium-albuterol 3 mL Neb INHALATION ×2 (15:48→21:11)
[2021-07-04] MEDS: carbidopa-levodopa ER 50-200mg Tablet 2 EACH PO (16:26)
[2021-07-04] MEDS: benzonatate 100 mg Capsule PO ×2 (16:26→22:10)
[2021-07-04] MEDS: enoxaparin 40 mg/0.4 mL Syringe SUBCUT (16:27)
[2021-07-04 17:26] LABS: Glucose Point of Care 235 mg/dL (70-110)
[2021-07-04 17:26] LABS: Glucose Point of Care 174 mg/dL (70-110)
[2021-07-04] MEDS: pregabalin 100 mg Capsule 200 MG PO (19:02)
[2021-07-04 22:03] LABS: Glucose Point of Care 193 mg/dL (70-110)
[2021-07-04] MEDS: guaiFENesin-codeine UDC 10 mL PO (22:09)
[2021-07-04] MEDS: flecainide 100 mg Tablet 50 MG PO (22:09)
[2021-07-04] MEDS: zolpidem 5 mg Tablet PO (22:10)
[2021-07-04] MEDS: quetiapine 25 mg Tablet 50 MG PO (22:10)
[2021-07-04] MEDS: azithromycin 500 MG in sodium chloride 0.9% 250 ML 250 MG IV (22:11)
[2021-07-04] MEDS: insulin glargine 100 units/1 mL 20 UNIT SUBCUT (22:11)
[2021-07-04] MEDS: insulin lispro 100 unit/1 mL SUBCUT (22:12)
[2021-07-04] MEDS: ALPRAZolam 0.5 mg Tablet PO (22:53)
[2021-07-05] VITALS (9 sets, daily range): BP systolic 95–102; BP diastolic 57–67; PULSE 83–101; RESP 16–18; TEMP 36.5–37.1; O2SAT 91–95
[2021-07-05] MEDS: ipratropium-albuterol 3 mL Neb INHALATION ×2 (02:51→10:34)
[2021-07-05] MEDS: guaiFENesin-codeine UDC 10 mL PO ×2 (05:20→09:19)
[2021-07-05] MEDS: ondansetron 2 mg/ML SDV 2 mL 4 MG IVP (05:36)
[2021-07-05] MEDS: atorvastatin 40 mg Tablet PO (06:32)
[2021-07-05] MEDS: PARoxetine 20 mg Tablet PO (06:32)
[2021-07-05] MEDS: carbidopa-levodopa ER 50-200mg Tablet 2 EACH PO (06:32)
[2021-07-05] MEDS: digoxin 125 mcg Tablet PO (06:32)
[2021-07-05 06:45] LABS: Basophils % 0.1 %; Hematocrit 37.8 % (37.0-47.0); Hemoglobin 11.8 g/dL (11.5-15.3); Lymphocytes # 0.6 10^3/uL (0.8-4.8); Lymphocytes % 7.2 %; Mean Corpuscular HGB Conc 31.2 g/dL (30.0-36.0); Mean Corpuscular Hemoglobin 29.2 pg (28.0-34.0); Mean Corpuscular Volume 93.6 fl (81-99); Mean Platelet Volume 11.3 fL (7.4-10.4); Monocytes # 0.7 10^3/uL (0.2-0.9); Monocytes % 7.9 %; Neutrophils # 7.18 10^3/uL (1.8-7.7); Neutrophils % 84.3 %; Nucleated Red Blood Cells % 0 %; Platelet Count 182 10^3/cmm (130-400); Red Blood Count 4.04 10^6/uL (4.1-5.3); Red Cell Distribution Width 14.3 % (12.1-15.1); White Blood Count 8.5 10^3/uL (4.0-10.0)
[2021-07-05 07:15] LABS: Glucose Point of Care 149 mg/dL (70-110)
[2021-07-05 07:31] LABS: Alanine Aminotransferase 25 U/L (0-33); Albumin Level 4.3 g/dL (3.5-5.2); Alkaline Phosphatase 62 IU/L (35-105); Aspartate Amino Transferase 24 U/L (0-32); Blood Urea Nitrogen 15 mg/dL (8-23); Calcium 8.3 mg/dL (8.5-10.5); Carbon Dioxide 22 mmol/L (22-29); Chloride 99 mmol/L (98-107); Creatinine Clr Calc Pharmacy 64.3288; Globulin 1.9 g/dL (1.3-4.6); Glomerular Filtration Rate 83.7 mL/min (90-130); Glucose 138 mg/dL (65-115); Osmolality Calculated 289 mOsm/kg (285-295); Sodium 138 mmol/L (136-145); Total Bilirubin 0.2 mg/dL (0.15-1.2); Total Protein 6.2 g/dL (6.6-8.7)
[2021-07-05] MEDS: benzonatate 100 mg Capsule PO (09:17)
[2021-07-05] MEDS: insulin lispro 100 unit/1 mL SUBCUT (09:17)
[2021-07-05] MEDS: flecainide 100 mg Tablet 50 MG PO (09:18)
[2021-07-05] MEDS: pregabalin 100 mg Capsule 200 MG PO (09:18)
[2021-07-05] MEDS: pantoprazole DR 40 mg Tablet PO (09:18)
[2021-07-05 11:00] LABS: Glucose Point of Care 230 mg/dL (70-110)
--- NOTE | 2021-07-05 11:39 | P.DS_ITS ---
Discharge Providers Date of Admission: 07/04/21 14:18 Date of Discharge: July 05, 2021 Attending Provider at Admission: Toby Palencia MD Attending Provider at Discharge: Toby Palencia MD Primary Care Provider: Mannie Hart MD Diagnoses at Discharge Discharge Diagnosis (1) Pneumonia: (2) Chronic cough: (3) Diabetes mellitus: (4) Hypertension: (5) GERD (gastroesophageal reflux disease): Reason for Visit Reason for Visit: COUGHING/MUSCLE ACHES Hospital Course Hospital Course 65 year old female with past medical history of diabetes , chronic cough, SVT, came in with chief complaint of worsening nonproductive cough, worsening shortness of breath, subjective fever, weakness, chest pain while coughing, generalized body pain, the symptoms has been going on for last 6 to 7 days, positive history of Covid exposure in the [facility]. Upon arrival in the ER she was worked up for above-mentioned complaint. CTA chest: No pulmonary embolus.small bilateral pleural effusions. Bibasilar atelectasis. XR chest:Left basilar atelectasis. EKG : Sinus rhythm Pertinent labs: WBC 7.1, H&H:12.8/4.7, PLT : 174 , serum sodium 139 serum potassium 4 BUN/ serum creatinine:12/6 , lactic acid 1.9 , CRP 17.5, proBNP:46, procalcitonin 0.16 Influenza negative, rapid Covid antigen negative, Covid PCR negative. She was admitted for the management of pneumonia: She was kept on antibiotics, blood cultures were negative, he was continued on other conservative respiratory management, she responded pretty well to above medical management and was discharged in stable condition to home. Physical Exam Const: COMMON NORMALS: patient oriented x3 HENMT: COMMON NORMALS: normocephalic and atraumatic HEAD & SCALP: normocephalic and atraumatic Resp: COMMON NORMALS: normal respiratory effort and clear to auscultation bilaterally AUSCULTATION: clear to auscultation bilaterally Cardio: COMMON NORMALS: regular rate, regular rhythm, S1 normal heart sound present, S2 normal heart sound present, No gallops present (Cardio), No murmurs present (Cardio), No rub (Cardio) and Peripheral pulses 2+ throughout RATE: regular rate RHYTHM: regular rhythm HEART SOUNDS: S1 normal heart sound present and S2 normal heart sound present PERIPHERAL PULSES: Peripheral pulses 2+ throughout GI: COMMON NORMALS: Normal to inspection, nondistended, normoactive bowel sounds present, Soft to palpation, non-tender, No hepatosplenomegaly present and no masses AUSCULTATION: Yes normoactive bowel sounds PALPATION: Yes Soft to palpation and Yes No hepatosplenomegaly present RECTAL EXAM: deferred Extremity: COMMON NORMALS: no clubbing, cyanosis or edema and no pedal edema Neuro: COMMON NORMALS: patient oriented x3 Discharge Data Data Completed and Pending: Completed Studies During Hospitalization Category Date Time Status CT angio chest PE protcl [id number] Stat Cat Scan 07/04/21 08:31 Completed XR chest 1V lottie ble [id number] Stat Exams 07/04/21 06:24 Completed Vitals: Last Vital Signs Temp 97.7 F 07/05/21 11:03 Pulse 101 H 07/05/21 11:03 Resp 16 07/05/21 11:03 BP 102/57 07/05/21 11:03 Pulse Ox 91 07/05/21 11:03 Discharge Plan Discharge Patient Disposition: Home Condition: Stable Prescriptions: Continued Belsomra 10 mg tablet 10 mg PO DAILY@21 RF: 0 metformin 500 mg tablet 500 mg PO BID@,16 RF: 0 pregabalin [Lyrica] 100 mg capsule 200 mg PO BID RF: 0 digoxin [Lanoxin] 125 mcg (0.125 mg) tablet 125 mcg PO DAILY@07 RF: 0 carbidopa-levodopa 50-200 mg tablet extended release 2 tab PO BID@,16 RF: 0 paroxetine HCl 20 mg tablet 20 mg PO DAILY@07 RF: 0 Lantus Solostar U-100 Insulin 100 unit/mL (3 mL) insulin pen 20 unit SUBCUT DAILY@21 RF: 0 albuterol sulfate [ProAir HFA] 90 mcg/actuation HFA aerosol inhaler 2 puff INHALATION QID PRN (Reason: Shortness Of Breath) RF: 0 alprazolam 1 mg tablet 1 mg PO TID PRN (Reason: Anxiety) RF: 0 quetiapine [Seroquel] 25 mg tablet 50 mg PO DAILY@21 RF: 0 flecainide 50 mg tablet 50 mg PO Q12H RF: 0 Atrovent HFA 17 mcg/actuation HFA aerosol inhaler 1 puff inhalation QID RF: 0 fluticasone propionate 50 mcg/actuation spray,suspension See Rx Instructions .ROUTE .COMPLEX Qty: 48 RF: 3 rosuvastatin 10 mg tablet 10 mg PO DAILY@07 RF: 0 acetaminophen [Tylenol Extra Strength] 500 mg Tablet 1,000 mg PO DAILY PRN (Reason: Pain) RF: 0 benzonatate 100 mg capsule See Rx Instructions .ROUTE .COMPLEX 30 Days Qty: 90 RF: 3 codeine-guaifenesin 10-100 mg/5 mL liquid 10 ml PO Q6H PRN (Reason: cough) Qty: 1200 RF: 3 omeprazole 20 mg capsule,delayed release(DR/EC) 20 mg PO BID@0700,1900 RF: 0 amlodipine 5 mg tablet 2.5 mg PO DAILY@0800 PRN (Reason: Anxiety) RF: 0 Discharge Orders: Discharge Order (Routine); Ordered 07/05/21 Ordered By: Toby Palencia Referrals: Mannie Hart MD [Primary Care Provider] - 07/15/21 3:00 pm (Please contact their office on Tuesday to schedule your appointment) Discharge Diet: Diabetic Discharge Activity: Increase activity as tolerated Patient Instructions: Type 2 Diabetes, Levofloxacin (By mouth), Pneumonitis (DC), Opioid Safety Discharge Attestations Time Spent in Discharge Care*: less than 30 min Specific Discharge Activities: educating patient, educating and/or supporting family/caregiver, discussing with pcp/other providers, discussing with hospice case manager/social workers/dc planners, documenting/other paperwork and evaluating patient/reviewing data Status at Discharge: Cognitive status at discharge: cognitively intact , Behavioral status at discharge: cooperative , Quality Metrics Clinical Quality Measures During this hospital stay, did patient experience: None Coding Level of Care Code Acute Chg FW DC note Diagnoses Pneumonia J18.9 Chronic cough R05 Diabetes mellitus E11.9 Hypertension I10 GERD (gastroesophageal reflux disease) K21.9
[2021-07-05 16:58] LABS: Quest SARS-CoV-2 RNA NOT DETECTED (NOT DETECTED)
--- NOTE | 2021-07-07 08:29 | PC.SOCIAL ---
discharge follow up call made. pt reports she didn't get her cough medicine. verified with pharmacy that the cough medicine hadn't been filled. codeine-guaifenesin called into the [facility] pharmacy.
== END 2021-07-05 12:40 | disposition home or self-care (01) ==
LOC: ER 10:41 → MEDSURG 15:16
PROVIDERS: Emergency Medicine; Admitting Provider Internal Medicine; Emergency Provider Family Medicine; PCP Family Medicine; Visit Provider Internal Medicine
DX: J18.9 Pneumonia, unspecified organism (principal); R05.3 Chronic cough; I10 Essential (primary) hypertension; K21.9 Gastro-esophageal reflux disease without esophagitis; I47.1 Supraventricular tachycardia; E78.5 Hyperlipidemia, unspecified; F32.A Depression, unspecified; M79.7 Fibromyalgia; G20 Parkinson's disease; Z79.84 Long term (current) use of oral hypoglycemic drugs; Z79.4 Long term (current) use of insulin; E11.40 Type 2 diabetes mellitus with diabetic neuropathy, unspecified; Z83.3 Family history of diabetes mellitus
CPT/HCPCS: 36415; 36416; 36600; 71045; 71275; 80051; 80053; 82330; 82805; 82962; 83605; 83880; 84145; 85025; 85378; 86140; 87040; 87426; 87635; 87804; 93005; 94640; 96365; 96367; 96372; 96375; 99285; G0378; J0456; J1100; J1650; J1815 ×2; J1940; J1956; J2405; J2920; J7050; Q9967

== ENCOUNTER 2021-08-24 11:05 | Outpatient (CLI) | payer MEDICARE, MEDICAID, SELFPAY ==
[2021-08-24 11:39] VITALS: BP 110/65; PULSE 75; RESP 16; TEMP 36.5; O2SAT 94; BMI 27.4
[2021-08-24 12:52] VITALS: BP 116/71; PULSE 68; RESP 16; TEMP 36.5; O2SAT 96
[2021-08-24 13:52] VITALS: BP 120/68; PULSE 75; RESP 16; TEMP 36.4; O2SAT 94
== END 2021-08-24 11:06 | disposition home or self-care (01) ==
LOC: OPS 11:12
PROVIDERS: PCP Family Medicine; Visit Provider Nurse Practitioner Family
DX: U07.1 COVID-19 (principal)
CPT/HCPCS: 96365

== ENCOUNTER → 2021-10-12 09:49 | Outpatient (BNVA) | payer MEDICARE, MEDICAID, SELFPAY | PROVIDERS: PCP Family Medicine; Visit Provider Internal Medicine Critical Care Medicine | DX: R05.3 Chronic cough (principal); G20 Parkinson's disease; K21.9 Gastro-esophageal reflux disease without esophagitis; J44.1 Chronic obstructive pulmonary disease with (acute) exacerbation; F41.8 Other specified anxiety disorders; E11.8 Type 2 diabetes mellitus with unspecified complications; E78.5 Hyperlipidemia, unspecified | CPT/HCPCS: 99213 ==

== ENCOUNTER → 2021-10-15 13:30 | Outpatient (BNVA) | payer MEDICARE, MEDICAID, SELFPAY | PROVIDERS: PCP Family Medicine; Visit Provider Internal Medicine | DX: R07.9 Chest pain, unspecified (principal); I47.1 Supraventricular tachycardia; I10 Essential (primary) hypertension | CPT/HCPCS: 99214 ==

== ENCOUNTER → 2022-02-10 08:16 | Outpatient (BNVA) | payer MEDICARE, MEDICAID, SELFPAY | PROVIDERS: PCP Family Medicine; Visit Provider Internal Medicine Critical Care Medicine | DX: R05.3 Chronic cough (principal); G20 Parkinson's disease; E78.5 Hyperlipidemia, unspecified; E11.8 Type 2 diabetes mellitus with unspecified complications; I10 Essential (primary) hypertension; K21.9 Gastro-esophageal reflux disease without esophagitis; Z79.84 Long term (current) use of oral hypoglycemic drugs; Z79.4 Long term (current) use of insulin | CPT/HCPCS: 99213; 99214 ==

== ENCOUNTER → 2022-02-11 14:18 | Outpatient (BNVA) | payer MEDICARE, MEDICAID, SELFPAY | PROVIDERS: PCP Family Medicine; Visit Provider Internal Medicine | DX: I47.1 Supraventricular tachycardia (principal); Q24.5 Malformation of coronary vessels; I10 Essential (primary) hypertension; R42 Dizziness and giddiness | CPT/HCPCS: 99213; 99214 ==

== ENCOUNTER 2022-02-23 13:00 | Observation (INO) | payer MEDICARE, MEDICAID, SELFPAY ==
[2022-02-23] VITALS (11 sets, daily range): BP systolic 91–119; BP diastolic 50–67; PULSE 61–97; RESP 14–21; O2SAT 93–97
--- NOTE | 2022-02-23 13:21 | CT_ITS ---
WS: [id number] CT ABDOMEN PELVIS TECHNIQUE: Contrast-enhanced CT of the abdomen and pelvis with coronal and sagittal reformatted image s. CLINICAL INFORMATION: abd pain COMPARISON: None. DLP: 1095.[address] scans at [facility] use at least one of these dose optimization techniques: automated e xposure control; mA and/or kV adjustment per patient size (includes targeted exams where dose is matc hed to clinical indication); or iterative reconstruction. FINDINGS: Prior cholecystectomy and hysterectomy. Diffuse fatty infiltration liver. Hepatomegaly. Small inciden surendra RIGHT hepatic cyst. Normal portal vein and splenic vein. Normal spleen. Normal GE junction. Bibas ilar atelectasis. Normal pancreatic parenchymal enhancement. Normal caliber abdominal aorta. Normal c eliac and SMA. Adrenal glands are normal. Normal renal parenchymal enhancement. No hydronephrosis. Ti ny RIGHT renal cyst. Tiny fat-containing abdominal hernia. Normal sigmoid colon. CT/CT abdomen pelvis w con* [id number] IMPRESSION: 1. No acute findings in the abdomen or pelvis. 2. Hepatomegaly with diffuse fatty infiltration. 3. Prior cholecystectomy. 4. Incidental small RIGHT hepatic cyst measuring 9 mm 5. Prior hysterectomy. 6. Tiny fat-containing umbilical hernia. 7. No other significant findings.
--- NOTE | 2022-02-23 13:25 | ED_ITS ---
HPI - General Adult General: Chief complaint: Abdominal Pain Stated complaint: UPPER EPIGASTRIC ABD PAIN Time Seen by Provider: 02/23/22 13:21 History of Present Illness: Patient is a 66-year-old female history hysterectomy, prior appendectomy/cholecystectomy presenting to the emergency room and sudden onset of midepigastric pain which started 45 minutes ago. Patient was cooking when this pain started and has been on relieving to severely painful. EMS was called patient was brought to the emergency room. In route, patient had 100 mcg of fentanyl without any relief of pain. Patient denies any nausea/vomiting fever/chills. Patient denies any change in bowel or bladder patterns. Patient denies any diarrhea, melena or hematochezia. Patient has no complaints or prior history of renal colic. Patient denies any chest pain, shortness breath, palpitation, lightheadedness, cough, runny nose, or sore throat. Onset:45 minutes ago Duration:45 minutes Location:home Severity:moderate/severe Associated symptoms: Deny chest pain, dyspnea, nausea, rash, palpitations or vomiting Review of Systems Const: Denies: fever(s) or chills Eyes: Denies: change in vision ENMT: Denies: mouth pain Card: Denies: chest pain or palpitations Resp: Denies: dyspnea or non-productive cough GI: Reports: abdominal pain; Denies: nausea, vomiting or diarrhea : Denies: dysuria Musc: Denies: extremity pain Skin/Breast: Denies: rash or new lesions Neuro: Denies: weakness in extremities Psych: Reports: other (Normal mood) Anders/Lymph: Denies: easy bruising PFS ED PFSH: Medical History Acute exacerbation of chronic obstructive pulmonary disease Anxiety Cataract Chronic cough Chronic cough Depression Diabetes mellitus Diabetic neuropathy Fibromyalgia GERD (gastroesophageal reflux disease) Hyperlipidemia Hypertension Hypotension Hypoxia Idiopathic Parkinson's disease Insomnia Paroxysmal supraventricular tachycardia Pneumonia SVT (supraventricular tachycardia) TMJ (temporomandibular joint disorder) Tremor Trochanteric bursitis of right hip Surgical History H/O dilation and curettage H/O tubal ligation History of appendectomy History of cholecystectomy History of hysterectomy History of neck surgery Hx of cataract surgery Family History Grandmother Diabetes Social History Smoking and tobacco status: never smoked Second hand smoke exposure: Yes Alcohol intake: never Lives independently: Yes Household members: spouse Marital status: Current occupational status: disabled History of recent travel: No Current gender identity: Female Physical Exam Const: COMMON NORMALS: alert HENMT: COMMON NORMALS: atraumatic HEAD & SCALP: atraumatic MOUTH: moist mucous membranes not abnormal Eye: COMMON NORMALS: EOMs intact bilaterally and conjunctivae normal CONJUNCTIVA: Yes conjunctivae normal Neck/C-Spine: COMMON NORMALS: full ROM and supple Resp: COMMON NORMALS: normal respiratory effort and clear to auscultation bilaterally AUSCULTATION: clear to auscultation bilaterally Cardio: COMMON NORMALS: regular rate RATE: regular rate GI: COMMON NORMALS: Soft to palpation PALPATION: Yes Soft to palpation OTHER: +moderate mid-epigastric focal TTP. NO guarding rebound, guarding, rigidity. No CVA tenderness to percussion. Neg Mcwilliams/Neg McBurney's point tenderness, no suprabupic tenderness to palpation. Extremity: COMMON NORMALS: full ROM Neuro: SENSORIUM/ORIENTATION: Yes alert MOTOR EXAM: No Abnormal motor str ength present and Other motor observations present (no focal motor deficits) Psych: COMMON NORMALS: speech normal SPEECH: Yes normal speech MOOD & AFFECT: Yes euthymic mood Course Vital Signs: Vital signs: Vital Signs Pulse Rate 71 02/23/22 13:19 Respiratory Rate 16 02/23/22 15:42 Blood Pressure 110/61 02/23/22 13:19 Pulse Oximetry 94 02/23/22 13:19 [facility] - General Adult Medical Decision Making 66-year-old female history of appendectomy/cholecystectomy and hysterectomy presenting to the emergency room with complaints of midepigastric dull pain that started 45 minutes ago has been unrelieved. On exam, patient is hemodynamically stable with moderate tenderness palpation in the mid epigastric area. Patient has no guarding or rebound tenderness previous exam with normal limit. CT showed incidental hepatic cyst. Rest of CT is negative for any acute surgical pathology. Patient continues to have significant abdominal nolberto by multiple pain medication GI cocktail. Patient received Reglan and Tylenol. At this time, patient is unable to hold anything down. Patient will be admitted to the hospital for intractable pain and vomiting. Disposition: admission Lab Data : 02/23/22 13:32 02/23/22 13:32 Radiology Impressions Abdomen/Pelvis CT 02/23/22 13:21 IMPRESSION: 1. No acute findings in the abdomen or pelvis. 2. Hepatomegaly with diffuse fatty infiltration. 3. Prior cholecystectomy. 4. Incidental small RIGHT hepatic cyst measuring 9 mm 5. Prior hysterectomy. 6. Tiny fat-containing umbilical hernia. 7. No other significant findings. Chest X-Ray 02/23/22 13:29 IMPRESSION: Stable chest without acute abnormality. Laboratory Results WBC 10.0 10^3/uL (4.0-10.0) 02/23/22 13:32 RBC 4.36 10^6/uL (4.1-5.3) 02/23/22 13:32 Hgb 12.9 g/dL (11.5-15.3) 02/23/22 13:32 Hct 40.4 % (37.0-47.0) 02/23/22 13:32 MCV 92.7 fl (81-99) 02/23/22 13:32 MCH 29.6 pg (28.0-34.0) 02/23/22 13:32 MCHC 31.9 g/dL (30.0-36.0) 02/23/22 13:32 RDW 13.0 % (12.1-15.1) 02/23/22 13:32 Plt Count 215 10^3/cmm (130-400) 02/23/22 13:32 MPV 11.2 fL (7.4-10.4) H 02/23/22 13:32 Neut % (Auto) 70.1 % 02/23/22 13:32 Lymph % (Auto) 20.6 % 02/23/22 13:32 [place] % (Auto) 5.1 % 02/23/22 13:32 Eos % (Auto) 3.5 % 02/23/22 13:32 Baso % (Auto) 0.3 % 02/23/22 13:32 Neut # (Auto) 7.02 10^3/uL (1.8-7.7) 02/23/22 13:32 Lymph # (Auto) 2.1 10^3/uL (0.8-4.8) 02/23/22 13:32 [place] # (Auto) 0.5 10^3/uL (0.2-0.9) 02/23/22 13:32 Eos # (Auto) 0.4 10^3/uL (0.0-0.8) 02/23/22 13:32 Baso # (Auto) 0.0 10^3/uL (0.0-0.1) 02/23/22 13:32 Nucleated RBC % (auto) 0 % 02/23/22 13:32 Nucleated RBCs # 0.0 /100WBC 02/23/22 13:32 Sodium 141 mmol/L (136-145) 02/23/22 13:32 Potassium 4.0 mmol/L (3.5-5.1) 02/23/22 13:32 Chloride 105 mmol/L (98-107) 02/23/22 13:32 Carbon Dioxide 25 mmol/L (22-29) 02/23/22 13:32 Anion Gap 15.0 (5-19) 02/23/22 13:32 BUN 11 mg/dL (8-23) 02/23/22 13:32 Creatinine 0.6 mg/dL (0.5-0.9) 02/23/22 13:32 GFR Calculation 99.7 mL/min (90-130) 02/23/22 13:32 Glucose 105 mg/dL (65-115) 02/23/22 13:32 Calculated Osmolality 292 mOsm/kg (285-295) 02/23/22 13:32 Lactate 1.1 mmol/L (0.5-2.2) 02/23/22 13:32 Calcium 8.9 mg/dL (8.5-10.5) 02/23/22 13:32 Total Bilirubin 0.3 mg/dL (0.15-1.2) 02/23/22 13:32 AST 18 U/L (0-32) 02/23/22 13:32 ALT < 5 U/L (0-33) 02/23/22 13:32 Alkaline Phosphatase 74 IU/L (35-105) 02/23/22 13:32 Troponin T Baseline 6 ng/L (0-10) 02/23/22 13:32 Troponin T 120 Minute 6.00 ng/L (0-10) 02/23/22 15:15 Delta Troponin T 0 ABS# (0-10) 02/23/22 15:15 Total Protein 6.9 g/dL (6.6-8.7) 02/23/22 13:32 Albumin 4.5 g/dL (3.5-5.2) 02/23/22 13:32 Globulin 2.4 g/dL (1.3-4.6) 02/23/22 13:32 Lipase 26 U/L (13-60) 02/23/22 13:32 Imaging Data Other Imaging: Radiologist's impression: [place] [address] XRay Report Signed Patient: Chelsea Ruvalcaba Unit #: [id number] : 1955 Age/Sex: 66 / F ADM Date: 02/23/22 Loc: ER Room/Bed: Attending Dr: Ordering Provider/Ordering MD: Vicente Hickman MD Date of Service: 02/23/22 Procedure(s): XR chest 1V portable [id number] Accession Number(s): [id number] Report Number: [id number] WS: [id number] XR chest 1V portable [id number] REASON FOR EXAM: eval free air FINDINGS: Chest is unchanged compared to 07/04/2021. Moderate tortuosity thoracic aorta. Mild cardiomegaly. Calcified granulomatous disease in both hemithoraces. No acute pulmonary parenchymal or pleural disease. Mild to moderate degenerative spondylosis in the mid and lower thoracic spine. XR/XR chest 1V portable [id number] IMPRESSION: Stable chest without acute abnormality. ? ? Dictated By: Ta Davison Jr, MD Signed By: aT Davison Jr, MD Signed Date/Time: 02/23/22 1403 DD/ [address] [address] [address] Scan Report Signed Patient: Chelsea Ruvalcaba Unit #: [id number] : 1955 Age/Sex: 66 / F ADM Date: 02/23/22 Loc: ER Room/Bed: Attending Dr: Ordering Provider/Ordering MD: Vicente Hickman MD Date of Service: 02/23/22 Procedure(s): CT abdomen pelvis w con* [id number] Accession Number(s): [id number] Report Number: [id number] WS: [id number] CT ABDOMEN PELVIS TECHNIQUE: Contrast-enhanced CT of the abdomen and pelvis with coronal and sagittal reformatted images. CLINICAL INFORMATION: abd pain COMPARISON: None. DLP: 1095.[address] scans at [facility] use at least one of these dose optimization techniques: automated exposure control; mA and/or kV adjustment per patient size (includes targeted exams where dose is matched to clinical indication); or iterative reconstruction. FINDINGS: Prior cholecystectomy and hysterectomy. Diffuse fatty infiltration liver. Hepat omegaly. Small incidental RIGHT hepatic cyst. Normal portal vein and splenic vein. Normal spleen. Normal GE junction. Bibasilar atelectasis. Normal pancreatic parenchymal enhancement. Normal caliber abdominal aorta. Normal celiac and SMA. Adrenal glands are normal. Normal renal parenchymal enhancement. No hydronephrosis. Tiny RIGHT renal cyst. Tiny fat-containing abdominal hernia. Normal sigmoid colon. CT/CT abdomen pelvis w con* [id number] IMPRESSION: ? 1.? No acute findings in the abdomen or pelvis. 2.? Hepatomegaly with diffuse fatty infiltration. 3.? Prior cholecystectomy. 4.? Incidental small RIGHT hepatic cyst measuring 9 mm 5.? Prior hysterectomy. 6.? Tiny fat-containing umbilical hernia. 7.? No other significant findings. ? Dictated By: Rudy Jj MD Signed By: Rudy Jj MD Signed Date/Time: 02/23/22 1531 DD/ 1522 Discharge Plan Discharge Patient Disposition: Admitted As Inpatient Clinical Impression: Abdominal pain, Vomiting Condition: Stable Coding Level of Care Code ED Bark Press Operator for Chg Fwd Exam Comprehensive
--- NOTE | 2022-02-23 13:29 | ECG_ITS ---
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 Measurements Intervals [place] Rate: 69 P: 43 [place]: 200 QRS: -30 QRSD: 88 T: 70 QT: 406 QTc: 437 Interpretive Statements SINUS RHYTHM BORDERLINE LEFT AXIS DEVIATION [QRS AXIS < -20] NONSPECIFIC T-WAVE ABNORMALITY Compared to ECG 07/04/2021 06:31:57 No significant changes Electronically Signed On 02-23-2022 20:56:51 CDT by Yris Whiting M.D. [id number]
--- NOTE | 2022-02-23 13:29 | XR_ITS ---
WS: [id number] XR chest 1V portable [id number] REASON FOR EXAM: eval free air FINDINGS: Chest is unchanged compared to 07/04/2021. Moderate tortuosity thoracic aorta. Mild cardiomegaly. Calcified granulomatous disease in both hemithoraces. No acute pulmonary parenchymal or pleural disease. Mild to moderate degenerative spondylosis in the mid and lower thoracic spine. XR/XR chest 1V portable [id number] IMPRESSION: Stable chest without acute abnormality.
[2022-02-23] MEDS: sodium chloride 0.9% 1,000 ML 999 ML IV (13:34)
[2022-02-23] MEDS: HYDROmorphone 1 mg/mL INJ 1 mL 0.5 MG IVP (13:34)
[2022-02-23 13:45] LABS: Basophils % 0.3 %; Eosinophils # 0.4 10^3/uL (0.0-0.8); Eosinophils % 3.5 %; Hematocrit 40.4 % (37.0-47.0); Hemoglobin 12.9 g/dL (11.5-15.3); Lymphocytes # 2.1 10^3/uL (0.8-4.8); Lymphocytes % 20.6 %; Mean Corpuscular HGB Conc 31.9 g/dL (30.0-36.0); Mean Corpuscular Hemoglobin 29.6 pg (28.0-34.0); Mean Corpuscular Volume 92.7 fl (81-99); Mean Platelet Volume 11.2 fL (7.4-10.4); Monocytes # 0.5 10^3/uL (0.2-0.9); Monocytes % 5.1 %; Neutrophils # 7.02 10^3/uL (1.8-7.7); Neutrophils % 70.1 %; Nucleated Red Blood Cells % 0 %; Platelet Count 215 10^3/cmm (130-400); Red Blood Count 4.36 10^6/uL (4.1-5.3)
--- NOTE | 2022-02-23 14:12 | PC.PHAR ---
pt states she takes care of her own medications-pt states she is not taking montelukast 10mg daily ext med history shows last filled 02/18/22 90d/s-notes are made in the pharmacy comments
[2022-02-23 14:18] LABS: Troponin(5th) Baseline 6 ng/L (0-10)
[2022-02-23 14:21] LABS: Alanine Aminotransferase < 5 U/L (0-33); Albumin Level 4.5 g/dL (3.5-5.2); Alkaline Phosphatase 74 IU/L (35-105); Aspartate Amino Transferase 18 U/L (0-32); Blood Urea Nitrogen 11 mg/dL (8-23); Calcium 8.9 mg/dL (8.5-10.5); Carbon Dioxide 25 mmol/L (22-29); Chloride 105 mmol/L (98-107); Globulin 2.4 g/dL (1.3-4.6); Glomerular Filtration Rate 99.7 mL/min (90-130); Glucose 105 mg/dL (65-115); Lipase 26 U/L (13-60); Osmolality Calculated 292 mOsm/kg (285-295); Sodium 141 mmol/L (136-145); Total Bilirubin 0.3 mg/dL (0.15-1.2); Total Protein 6.9 g/dL (6.6-8.7)
[2022-02-23] MEDS: morphine 4 mg/mL SDV 1 mL IVP ×2 (14:23→15:42)
[2022-02-23] MEDS: iohexol 350 mg/mL 100 mL Btl IV ×2 (14:58→18:54)
--- NOTE | 2022-02-23 15:29 | ECG_ITS ---
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 Measurements Intervals [place] Rate: 67 P: 36 [place]: 222 QRS: -21 QRSD: 92 T: 62 QT: 431 QTc: 457 Interpretive Statements SINUS RHYTHM WITH FIRST DEGREE AV BLOCK BORDERLINE LEFT AXIS DEVIATION [QRS AXIS < -20] NONSPECIFIC T-WAVE ABNORMALITY Compared to ECG 02/23/2022 13:36:29 First degree AV block now present T-wave abnormality still present Electronically Signed On 02-23-2022 21:06:51 CDT by Yris Whiting M.D. [id number]
[2022-02-23 15:39] LABS: Lactate (Lactic Acid level) 1.1 mmol/L (0.5-2.2)
[2022-02-23] MEDS: lidocaine 2% viscous 15 ML, aluminum-mag hydrox-simethicon 30 ML, sucralfate oral liq 1 GM PO (16:20)
[2022-02-23 16:55] LABS: Troponin 5 2HR Delta 0 ABS# (0-10)
[2022-02-23] MEDS: acetaminophen 500 mg Tablet PO (17:30)
[2022-02-23] MEDS: metoclopramide 5 mg/mL SDV 2 mL IVP (17:40)
--- NOTE | 2022-02-23 18:03 | PM.HP ---
Providers/Chief Complaint Primary Care Provider: Mannie Hart MD Chief Complaint: UPPER EPIGASTRIC ABD PAIN History of Present Illness Chelsea Ruvalcaba is a 66 year old female with history of IBS, diabetes, cholecystectomy, presented with chief complaint of projectile vomiting. Patient is stating that she was fixing dinner when all of a sudden started experiencing midepigastric discomfort which she describing as stabbing pain 10 out of 10, she experienced 4-5 episode of emesis, no recent fever, chest pain or shortness of breath. No recent diarrhea. She has not experienced COVID-like symptoms. No one else is sick at home. She ate her dinner. She thinks she is having flare of IBS. No recent rash, bites, headache. She has never use oxygen. Diagnostic work-up in the ER is unremarkable, EKG showing sinus rhythm chest x-ray done CT abdomen pelvis showed hepatic cyst, umbilical hernia, No signs of SBO She does not have high lactic acid or leukocytosis to suggest ischemic colitis Tropes are negative Not tolerating p.o. medications in the ER I will give her hyoscyamine and promethazine We will request COVID-19 test and gastric emptying study Review of Systems Const: Denies: fever(s) Eyes: Denies: change in vision ENMT: Denies: throat pain Card: Denies: chest pain Resp: Denies: dyspnea GI: Reports: abdominal pain and nausea : Denies: flank pain Musc: Denies: neck pain Skin/Breast: Denies: rash Neuro: Denies: headache(s) Psych: Denies: anxiety Endo: Denies: polyuria Anders/Lymph: Denies: easy bruising All/Imm: Denies: urticaria Medications/Allergies Home Medications Medication Instructions Recorded Confirmed Last Taken Type albuterol sulfate 90 mcg/actuation 2 puff INHALATION QID PRN 01/17/20 02/23/22 12/17/20 History aerosol inhaler (ProAir HFA) alprazolam 1 mg tablet 1 mg PO TID PRN 01/17/20 02/23/22 12/17/20 History carbidopa ER 50 mg-levodopa 200 mg 2 tab PO BID@,16 tab 01/17/20 02/23/22 02/23/22 History tablet,extended release digoxin 125 mcg (0.125 mg) tablet 125 mcg PO DAILY@07 01/17/20 02/23/22 02/23/22 History (Lanoxin) flecainide 50 mg tablet 50 mg PO Q12H 01/17/20 02/23/22 02/23/22 History insulin glargine 100 unit/mL (3 20 unit SUBCUT DAILY@01/17/20 02/23/22 02/22/22 History mL) subcutaneous pen (Lantus Solostar U-100 Insulin) pregabalin 100 mg capsule (Lyrica) 100 mg PO BID 01/17/20 02/23/22 02/23/22 History suvorexant 10 mg tablet (Belsomra) 10 mg PO DAILY@21 tab 01/17/20 02/23/22 02/22/22 History acetaminophen 500 mg tablet 1,000 mg PO DAILY PRN 09/04/20 02/23/22 12/16/20 History (Tylenol Extra Strength) rosuvastatin 10 mg tablet 10 mg PO DAILY@09/04/20 02/23/22 02/23/22 History amlodipine 5 mg tablet 5 mg PO QAM tab 03/24/21 02/23/22 02/23/22 History metformin 500 mg tablet,extended 500 mg PO DAILY@11/10/21 02/23/22 02/22/22 History release 24 hr omeprazole 20 mg capsule,delayed 20 mg PO BID@0700,1900 #60 cap 12/22/21 02/23/22 02/23/22 Rx release codeine 10 mg-guaifenesin 100 mg/5 10 ml PO Q6H PRN #1200 ml 02/10/22 02/23/22 Unknown Rx mL oral liquid benzonatate 100 mg capsule 100 mg PO TID 02/23/22 02/23/22 02/23/22 History budesonide-formoterol HFA 80 2 puff INHALATION BID 02/23/22 02/23/22 Unknown History mcg-4.5 mcg/actuation aerosol inhaler (Symbicort) dicyclomine 20 mg tablet 20 mg PO TID 02/23/22 02/23/22 02/23/22 History fluticasone propionate 50 1 spray INTRANASAL BID PRN 02/23/22 02/23/22 Unknown History mcg/actuation nasal spray,suspension paroxetine HCl 30 mg tablet 30 mg PO DAILY@02/23/22 02/23/22 02/23/22 History promethazine 25 mg tablet 25 mg PO Q4H PRN 02/23/22 02/23/22 Unknown History quetiapine 50 mg tablet 50 mg PO DAILY@02/23/22 02/23/22 02/22/22 History Allergies Allergy/AdvReac Type Severity Reaction Status Date / Time cephalexin [From Keflex] Allergy Severe ALGY-Rash Verified 02/11/22 14:58 Cephalosporins Allergy Severe ALGY-Rash Verified 02/11/22 14:58 PFSH Acute PFSH: Medical History Acute exacerbation of chronic obstructive pulmonary disease Anxiety Cataract Chronic cough Chronic cough Depression Diabetes mellitus Diabetic neuropathy Fibromyalgia GERD (gastroesophageal reflux disease) Hyperlipidemia Hypertension Hypotension Hypoxia Idiopathic Parkinson's disease Insomnia Paroxysmal supraventricular tachycardia Pneumonia SVT (supraventricular tachycardia) TMJ (temporomandibular joint disorder) Tremor Trochanteric bursitis of right hip Surgical History H/O dilation and curettage H/O tubal ligation History of appendectomy History of cholecystectomy History of hysterectomy History of neck surgery Hx of cataract surgery Family History Grandmother Diabetes Social History Smoking and tobacco status: never smoked Second hand smoke exposure: Yes Alcohol intake: never Lives independently: Yes Household members: spouse Marital status: Current occupational status: disabled History of recent travel: No Current gender identity: Female Vitals/I&O/Wt Last Vital Signs Pulse 71 02/23/22 13:19 Resp 16 02/23/22 15:42 BP 110/61 02/23/22 13:19 Pulse Ox 94 02/23/22 13:19 Physical Exam Narrative: elderly female She is in distress complaining abdominal pain, she has her hand on her midepigastric region Abdomen is tender to deep palpation midepigastrium No protuberance noted It is soft no signs of rigidity guarding or peritonitis She does not look dehydrated Awake and alert Saturating well on room air I have turned off her oxygen saturating 96% No active chest pain Extremity without edema Data : 02/23/22 13:32 02/23/22 13:32 A&P Assessment and plan (1) Abdominal pain: Status: Acute (2) Vomiting: Status: Acute Plan Projectile nausea vomiting Midepigastric pain Etiology is unclear Patient is denying use of marijuana, no signs of ischemic colitis, no signs of pancreatitis, No signs of SBO She has umbilical hernia Hepatic cyst Concern for diabetic gastroparesis we will request gastric emptying study tomorrow I would also rule out COVID I will give her hyoscyamine, Reglan and promethazine No chest pain, troponin negative, EKG unremarkable She is not requiring oxygen I have turned off her oxygen in the ER, she is saturating 96% I do not see any skin rash to consider porphyria cutanea tarda It could be abdominal wall syndrome, check Mccullen sign which normally gets better with local lidocaine injection I will keep her on GI soft diet Observe her overnight Continue IV fluid hydration She carries history of SVT, fibromyalgia, IBS I would also add Ativan and antispasmodic to rule out vasospastic pain Patient has nonobstructive coronary disease concern was given to vasospastic angina and she was given amlodipine she does complain of occasional chest pain at this time she is endorsing midepigastric pain Acend aortic aneurysm 3.9 cm Full code Attestations Medical Necessity Statement*: Anticipating discharge within 48 hours will need work-up for projectile vomiting Time Spent in Patient Care: 40 Coding Level of Care Code Acute Roller Leveler for Chg Fwd Diagnoses Abdominal pain R10.9 Vomiting R11.10
[2022-02-23 18:52] LABS: Amphetamines Screen Urine Negative (Negative); Barbiturates Screen Urine Negative (Negative); Benzodiazepines Screen Urine Positive (Negative); Cocaine Screen Urine Negative (Negative); Opiate Screen Urine Positive (Negative); PCP Screen Urine Negative (Negative); THC Screen Urine Negative (Negative)
[2022-02-23 19:33] LABS: Add Urine Microscopic? YES; Bilirubin Urine Neg (Negative); Blood Urine Neg (Negative); Glucose Urine UA Norm (Normal); Ketones Urine Negative (Negative); Leukocyte Esterase Urine 1+ (Negative); Nitrate Urine Negative (Negative); Protein Urine Neg (Negative); Urine Appearance Clear (CLEAR); Urine Color Yellow (Yellow); Urobilinogen Urine Norm (Negative); pH Urine 5 (5-7)
[2022-02-23 19:34] LABS: Add Urine Culture? Yes; Bacteria Urine 1+ /hpf; RBC Urine 0-4 /hpf (0-2); Squamous Epithelial Cell Urine 0-4 /hpf (0-5)
[2022-02-23] MEDS: morphine 4 mg/mL SDV 1 mL 2 MG IVP (20:28)
[2022-02-23 21:04] LABS: Procalcitonin 0.05 ng/mL (0-0.5)
[2022-02-23 22:00] LABS: Estmated Average Glucose 126
[2022-02-23 22:05] LABS: SARS Covid-2 Antigen Negative (Negative)
[2022-02-23 22:09] LABS: Digoxin 0.8 ng/mL (0.6-1.2)
--- NOTE | 2022-02-24 | CTR_ITS ---
[facility] Final Radiology Report Call: [phone] assistance Online chat: [email or web address] + Name: BREE MCKEON Age: 66Years F Date: 02/23/2022 SSN: -- : 1955 Study: CTA ABDOMEN/PELVIS Requesting Physician: CLARK BERNAL Images: [id number] Add?l Studies: Provided Clinical History: hypxoemia, abd pain PROCEDURE INFORMATION: Exam: CTA Chest, Abdomen and Pelvis With Contrast Exam date and time: 02/23/2022 6:51 PM Age: 66 years old Clinical indication: Shortness of breath; Abdominal pain; Prior surgery; Surgery type: Gb. Appy. Hysterectomy. Patient HX: Patient C/O sudden severe epigastric pain today. C/O SOB. Hypoxemic on monitor. ; Additional info: Hypxoemia, abd pain TECHNIQUE: Imaging protocol: Computed tomographic angiography of the chest, abdomen and pelvis with contrast. 3D rendering (Not supervised by radiologist): MIP and/or 3D reconstructed images were created by the technologist. Radiation optimization: All CT scans at this facility use at least one of these dose optimization techniques: automated exposure control; mA and/or kV adjustment per patient size (includes targeted exams where dose is matched to clinical indication); or iterative reconstruction. Contrast material: OMNI 350; Contrast volume: 95 ml; Contrast route: INTRAVENOUS (IV); COMPARISON: CT angio chest abdomen 09/05/2020 3:18 PM RADIATION DOSE METRICS: Total DLP (mGy-cm): 1424.18 FINDINGS: Lungs: Bilateral dependent atelectasis versus infiltrate. Great vessels off aortic arch: Abberant right subclavian artery, normal variant. Aorta: Ascending thoracic aorta prominent measuring 3.9 cm. Celiac trunk and mesenteric arteries: No occlusion or significant stenosis. Renal arteries: No occlusion or significant stenosis. Right iliac arteries: No occlusion or significant stenosis Left iliac arteries: No occlusion or significant stenosis. Liver: Right hepatic lobe cyst. Gallbladder and bile ducts: Cholecystectomy. Pancreas: Unremarkable. No mass. No ductal dilation. Spleen: Unremarkable. No splenomegaly. Adrenal glands: Unremarkable. No mass. Kidneys and ureters: Unremarkable. No solid mass. No hydronephrosis. Stomach and bowel: Constipation. Appendix: No evidence of appendicitis. Intraperitoneal space: Unremarkable. No free air. No significant fluid collection. Lymph nodes: Unremarkable. No enlarged lymph nodes. Urinary bladder: Unremarkable. No mass. Reproductive: Unremarkable as visualized. Bones/joints: No acute fracture. Soft tissues: Unremarkable. IMPRESSION: 1. Negative for pulmonary embolus or acute inflammatory process in the abdomen or pelvis. Vasculature of abdomen appears within normal limits. 2. Abberant right subclavian artery, normal variant. 3. Bilateral dependent atelectasis versus infiltrate. 4. Ascending thoracic aorta prominent measuring 3.9 cm. 5. Cholecystectomy. 6. Constipation. 7. Right hepatic lobe cyst. Thank you for allowing us to participate in the care of your patient. Dictated and Authenticated by: Bryan Perdomo MD 02/23/2022 7:52 PM Central Time ([place] & [place]) [facility]
[2022-02-24] MEDS: enoxaparin 40 mg/0.4 mL Syringe SUBCUT (00:58)
[2022-02-24] MEDS: flecainide 100 mg Tablet 50 MG PO (00:58)
[2022-02-24] MEDS: lactated ringers 1,000 ML 999 ML IV (00:58)
[2022-02-24] MEDS: promethazine 25 mg/mL SDV 1 mL 12.5 MG IM (00:58)
[2022-02-24 01:06] VITALS: BP 124/65; PULSE 68; RESP 16; O2SAT 95
[2022-02-24] MEDS: sodium chloride 0.9% 1,000 ML 75 ML IV (01:50)
[2022-02-24 07:33] LABS: Basophils % 0.4 %; Eosinophils # 0.2 10^3/uL (0.0-0.8); Eosinophils % 2.9 %; Hematocrit 35.4 % (37.0-47.0); Hemoglobin 11.8 g/dL (11.5-15.3); Lymphocytes # 1.1 10^3/uL (0.8-4.8); Mean Corpuscular HGB Conc 33.3 g/dL (30.0-36.0); Mean Corpuscular Hemoglobin 29.9 pg (28.0-34.0); Mean Corpuscular Volume 89.8 fl (81-99); Monocytes # 0.4 10^3/uL (0.2-0.9); Monocytes % 5.4 %; Neutrophils # 5.81 10^3/uL (1.8-7.7); Neutrophils % 76.2 %; Nucleated Red Blood Cells % 0 %; Platelet Count 173 10^3/cmm (130-400); Red Blood Count 3.94 10^6/uL (4.1-5.3); Red Cell Distribution Width 13.1 % (12.1-15.1); White Blood Count 7.6 10^3/uL (4.0-10.0)
[2022-02-24 08:07] LABS: Alanine Aminotransferase 29 U/L (0-33); Albumin Level 4.2 g/dL (3.5-5.2); Alkaline Phosphatase 85 IU/L (35-105); Anion Gap 11.8 (5-19); Aspartate Amino Transferase 32 U/L (0-32); Blood Urea Nitrogen 10 mg/dL (8-23); C Reactive Protein 15.9 mg/L (0.0-4.9); Calcium 8.3 mg/dL (8.5-10.5); Carbon Dioxide 28 mmol/L (22-29); Chloride 102 mmol/L (98-107); Globulin 2.1 g/dL (1.3-4.6); Glomerular Filtration Rate 99.7 mL/min (90-130); Glucose 100 mg/dL (65-115); Magnesium 2.1 mg/dL (1.7-2.3); Osmolality Calculated 285 mOsm/kg (285-295); Potassium 3.8 mmol/L (3.5-5.1); Sodium 138 mmol/L (136-145); Total Bilirubin 0.3 mg/dL (0.15-1.2); Total Protein 6.3 g/dL (6.6-8.7)
[2022-02-24 08:14] LABS: Glucose Point of Care 102 mg/dL (70-110)
--- NOTE | 2022-02-24 08:21 | PM.DCS ---
Discharge Providers Date of Admission: 02/24/22 00:01 Date of Discharge: February 24, 2022 Attending Provider at Admission: Mj Meza MD Attending Provider at Discharge: Mj Meza MD Primary Care Provider: Mannie Hart MD Diagnoses at Discharge Discharge Diagnosis (1) Abdominal pain: Status: Acute (2) Vomiting: Status: Acute Reason for Visit Reason for Visit: UPPER EPIGASTRIC ABD PAIN Hospital Course Hospital Course Chelsea Ruvalcaba is a 66 year old female with history of IBS, diabetes, cholecystectomy, presented with chief complaint of projectile vomiting. Patient experienced 4-5 episodes of emesis at home decided to come to the hospital for worsening of her epigastric pain. Diagnostic work-up in the ER revealed unremarkable CBC, BMP, CT abdomen pelvis consistent with hepatic cyst, umbilical hernia without any signs of obstruction, no signs of ischemic colitis, lactic acid was normal. Her symptoms relieved with use of hyoscyamine alone. She did not respond to opioids. Concern for diabetic gastroparesis I have given her prescription to get gastric emptying study outpatient. She was admitted as observation, throughout her hospitalization she did not experience any emesis, her pain subsided with hyoscyamine. COVID-19 test was negative. She does take dicyclomine and antiemetics at home. Patient is attributing her symptoms to IBS flare. Physical Exam Narrative: Pleasant cooperative Euvolemic Abdomen soft Nonfocal neuro exam S1, S2 No active complaint Abdomen is nontender Discharge Data Studies Completed and Pending Completed Studies During Hospitalization Category Date Time Status CT abdomen pelvis w con* [id number] Urgent Cat Scan 02/23/22 13:21 Completed XR chest 1V portable [id number] Urgent Exams 02/23/22 13:29 Completed Pending at discharge Category Date Time Status CTA abdomen pelvis [CT angio abdomen pelvis [id number]] Cat Scan 02/24/22 00:00 Ordered Urgent Urine Culture Stat Lab 02/23/22 17:45 [place] [id number] Routine Nuc Med 02/24/22 00:00 Ordered Radiology Impressions Abdomen/Pelvis CT 02/23/22 13:21 IMPRESSION: 1. No acute findings in the abdomen or pelvis. 2. Hepatomegaly with diffuse fatty infiltration. 3. Prior cholecystectomy. 4. Incidental small RIGHT hepatic cyst measuring 9 mm 5. Prior hysterectomy. 6. Tiny fat-containing umbilical hernia. 7. No other significant findings. Chest X-Ray 02/23/22 13:29 IMPRESSION: Stable chest without acute abnormality. Laboratory Results WBC 7.6 10^3/uL (4.0-10.0) 02/24/22 07:16 RBC 3.94 10^6/uL (4.1-5.3) L 02/24/22 07:16 Hgb 11.8 g/dL (11.5-15.3) 02/24/22 07:16 Hct 35.4 % (37.0-47.0) L 02/24/22 07:16 MCV 89.8 fl (81-99) 02/24/22 07:16 MCH 29.9 pg (28.0-34.0) 02/24/22 07:16 MCHC 33.3 g/dL (30.0-36.0) 02/24/22 07:16 RDW 13.1 % (12.1-15.1) 02/24/22 07:16 Plt Count 173 10^3/cmm (130-400) 02/24/22 07:16 MPV 11.0 fL (7.4-10.4) H 02/24/22 07:16 Neut % (Auto) 76.2 % 02/24/22 07:16 Lymph % (Auto) 15.0 % 02/24/22 07:16 [place] % (Auto) 5.4 % 02/24/22 07:16 Eos % (Auto) 2.9 % 02/24/22 07:16 Baso % (Auto) 0.4 % 02/24/22 07:16 Neut # (Auto) 5.81 10^3/uL (1.8-7.7) 02/24/22 07:16 Lymph # (Auto) 1.1 10^3/uL (0.8-4.8) 02/24/22 07:16 [place] # (Auto) 0.4 10^3/uL (0.2-0.9) 02/24/22 07:16 Eos # (Auto) 0.2 10^3/uL (0.0-0.8) 02/24/22 07:16 Baso # (Auto) 0.0 10^3/uL (0.0-0.1) 02/24/22 07:16 Nucleated RBC % (auto) 0 % 02/24/22 07:16 Nucleated RBCs # 0.0 /100WBC 02/24/22 07:16 Sodium 138 mmol/L (136-145) 02/24/22 07:16 Potassium 3.8 mmol/L (3.5-5.1) 02/24/22 07:16 Chloride 102 mmol/L (98-107) 02/24/22 07:16 Carbon Dioxide 28 mmol/L (22-29) 02/24/22 07:16 Anion Gap 11.8 (5-19) 02/24/22 07:16 BUN 10 mg/dL (8-23) 02/24/22 07:16 Creatinine 0.6 mg/dL (0.5-0.9) 02/24/22 07:16 GFR Calculation 99.7 mL/min (90-130) 02/24/22 07:16 Glucose 100 mg/dL (65-115) 02/24/22 07:16 POC Glucose 102 mg/dL (70-110) 02/24/22 08:12 Estimat Average Glucose 126 02/23/22 13:32 Hemoglobin A1c 6.0 % (4.0-6.0) 02/23/22 13:32 Calculated Osmolality 285 mOsm/kg (285-295) 02/24/22 07:16 Lactate 1.1 mmol/L (0.5-2.2) 02/23/22 13:32 Calcium 8.3 mg/dL (8.5-10.5) L 02/24/22 07:16 Magnesium 2.1 mg/dL (1.7-2.3) 02/24/22 07:16 Total Bilirubin 0.3 mg/dL (0.15-1.2) 02/24/22 07:16 AST 32 U/L (0-32) 02/24/22 07:16 ALT 29 U/L (0-33) 02/24/22 07:16 Alkaline Phosphatase 85 IU/L (35-105) 02/24/22 07:16 Troponin T Baseline 6 ng/L (0-10) 02/23/22 13:32 Troponin T 120 Minute 6.00 ng/L (0-10) 02/23/22 15:15 Delta Troponin T 0 ABS# (0-10) 02/23/22 15:15 C-Reactive Protein 15.9 mg/L (0.0-4.9) H 02/24/22 07:16 Total Protein 6.3 g/dL (6.6-8.7) L 02/24/22 07:16 Albumin 4.2 g/dL (3.5-5.2) 02/24/22 07:16 Globulin 2.1 g/dL (1.3-4.6) 02/24/22 07:16 Lipase 26 U/L (13-60) 02/23/22 13:32 Procalcitonin 0.05 ng/mL (0-0.5) 02/23/22 13:32 Urine Color Yellow (Yellow) 02/23/22 17:45 Urine Appearance Clear (CLEAR) 02/23/22 17:45 Urine pH 5 (5-7) 02/23/22 17:45 Ur Specific [place] 1.010 (1.005-1.030) 02/23/22 17:45 Urine Protein Neg (Negative) 02/23/22 17:45 Urine Glucose (UA) Norm (Normal) 02/23/22 17:45 Urine Ketones Negative (Negative) 02/23/22 17:45 Urine Blood Neg (Negative) 02/23/22 17:45 Urine Nitrate Negative (Negative) 02/23/22 17:45 Urine Bilirubin Neg (Negative) 02/23/22 17:45 Urine Urobilinogen Norm mg/dL (Negative) 02/23/22 17:45 Ur Leukocyte Esterase 1+ (Negative) H 02/23/22 17:45 Urine RBC 0-4 /hpf (0-2) H 02/23/22 17:45 Urine WBC 10-15 /hpf (0-5) H 02/23/22 17:45 Ur Squamous Epith Cells 0-4 /hpf (0-5) H 02/23/22 17:45 Amorphous Sediment Not Reportable 02/23/22 17:45 Urine Bacteria 1+ /hpf (NONE) H 02/23/22 17:45 Digoxin 0.8 ng/mL (0.6-1.2) 02/23/22 13:32 Urine Opiates Screen Positive ng/mL (Negative) H 02/23/22 17:45 Ur Barbiturates Screen Negative ng/mL (Negative) 02/23/22 17:45 Ur Phencyclidine Scrn Negative ng/mL (Negative) 02/23/22 17:45 Ur Amphetamines Screen Negative ng/mL (Negative) 02/23/22 17:45 U Benzodiazepines Scrn Positive ng/mL (Negative) H 02/23/22 17:45 Urine Cocaine Screen Negative ng/mL (Negative) 02/23/22 17:45 U Marijuana (THC) Screen Negative ng/mL (Negative) 02/23/22 17:45 SARS-CoV-2 Ag (Rapid) Negative (Negative) 02/23/22 21:35 Vitals Last Vital Signs Pulse 68 02/24/22 01:06 Resp 16 02/24/22 01:06 BP 124/65 02/24/22 01:06 Pulse Ox 95 02/24/22 01:06 Discharge Plan Discharge Patient Disposition: Home Condition: Stable Prescriptions: Continued Belsomra 10 mg tablet 10 mg PO DAILY@21 0RF pregabalin [Lyrica] 100 mg capsule 100 mg PO BID 0RF digoxin [Lanoxin] 125 mcg (0.125 mg) tablet 125 mcg PO DAILY@07 0RF carbidopa-levodopa 50-200 mg tablet extended release 2 tab PO BID@07,16 0RF Lantus Solostar U-100 Insulin 100 unit/mL (3 mL) insulin pen 20 unit SUBCUT DAILY@21 0RF albuterol sulfate [ProAir HFA] 90 mcg/actuation HFA aerosol inhaler 2 puff INHALATION QID PRN (Reason: Shortness Of Breath) 0RF alprazolam 1 mg tablet 1 mg PO TID PRN (Reason: Anxiety) 0RF flecainide 50 mg tablet 50 mg PO Q12H 0RF Rx Instructions: @07:00,16:00 codeine-guaifenesin 10-100 mg/5 mL liquid 10 ml PO Q6H PRN (Reason: cough) Qty: 1200 3RF metformin 500 mg tablet extended release 24 hr 500 mg PO DAILY@21 0RF omeprazole 20 mg capsule,delayed release(DR/EC) 20 mg PO BID@0700,1900 Qty: 60 3RF rosuvastatin 10 mg tablet 10 mg PO DAILY@07 0RF acetaminophen [Tylenol Extra Strength] 500 mg Tablet 1,000 mg PO DAILY PRN (Reason: Pain) 0RF amlodipine 5 mg tablet 5 mg PO QAM 0RF dicyclomine 20 mg tablet 20 mg PO TID 0RF paroxetine HCl 30 mg tablet 30 mg PO DAILY@07 0RF promethazine 25 mg tablet 25 mg PO Q4H PRN (Reason: Nausea And Vomiting) 0RF quetiapine 50 mg tablet 50 mg PO DAILY@21 0RF Symbicort 80-4.5 mcg/actuation HFA aerosol inhaler 2 puff INHALATION BID 0RF benzonatate 100 mg capsule 100 mg PO TID 0RF fluticasone propionate 50 mcg/actuation spray,suspension 1 spray intranasal BID PRN (Reason: Allergy Symptoms) 0RF Discharge Orders: Discharge Order (Routine); Ordered 02/24/22 Ordered By: Mj Meza Other Ambulatory Orders: [place] [id number] (Routine) Timeframe: 3 Days Facility: [facility] - Location: Radiology Ordered By: Mj Meza Referrals: Mannie Hart MD [Primary Care Provider] - 2 weeks Discharge Diet: Full LIquid Discharge Activity: Increase activity as tolerated Patient Instructions: Acute Abdominal Pain (DC), Epigastric Pain (ED), Opioid Safety Discharge Attestations Time Spent in Discharge Care*: less than 30 min Status at Discharge: Cognitive status at discharge: cognitively intact, Behavioral status at discharge: cooperative, Quality Metrics Clinical Quality Measures [ No reported AMI, CVA or VTE this stay] Coding Level of Care Code Acute Chg FW DC note Diagnoses Abdominal pain R10.9 Vomiting R11.10
[2022-02-24 08:24] VITALS: PULSE 62; RESP 18; O2SAT 93
[2022-02-24] MEDS: pantoprazole 40 mg SDV IVP (09:48)
== END 2022-02-24 10:24 | disposition home or self-care (01) ==
LOC: ER 17:29 → ER IP 02-24 00:59
PROVIDERS: Admitting Provider Internal Medicine; Emergency Provider Emergency Medicine; PCP Family Medicine; Visit Provider Internal Medicine
DX: R10.13 Epigastric pain (principal); R11.10 Vomiting, unspecified; Z90.49 Acquired absence of other specified parts of digestive tract; Z79.84 Long term (current) use of oral hypoglycemic drugs; F41.9 Anxiety disorder, unspecified; E11.40 Type 2 diabetes mellitus with diabetic neuropathy, unspecified; M79.7 Fibromyalgia; K21.9 Gastro-esophageal reflux disease without esophagitis
CPT/HCPCS: 36415; 36416; 71045; 71275; 74177; 80053; 80162; 80306; 81001; 82962; 83036; 83605; 83690; 83735; 84145; 84484; 85025; 86140; 87086; 87426; 93005; 94760; 96372; 96374; 96375; 96376; 99285; C9113; G0378; J1170; J1650; J2270; J2550; J2765; J7030; Q9967

== ENCOUNTER 2022-03-02 07:32 | Outpatient (CLI) | payer MEDICARE, MEDICAID, SELFPAY ==
--- NOTE | 2022-03-02 07:49 | MM_ITS ---
WS: [id number] SCREENING DIGITAL BREAST TOMOSYNTHESIS MAMMOGRAM WITH CAD HISTORY: SCREENING COMPARISON: 02/23/2021 and 12/28/2016 Bilateral CC and MLO with tomosynthesis and synthetic mammography submitted. Computer aided detection analyzed. Breast composition: There are scattered areas of fibroglandular density. Seen best on the tomosynthes is is a very vague area of architectural distortion in the upper-outer quadrant of the RIGHT breast n ear 10:00. There is no associated soft tissue mass. Otherwise the breasts are negative. MM/[place] [id number] IMPRESSION: BI-RADS: 0-Incomplete: Need additional imaging evaluation FOLLOW UP: Need Additional Imaging RIGHT breast: Spot compression views (CC and MLO). True ML. Ultrasound to follo w if abnormality persists.
== END 2022-03-02 07:33 | disposition home or self-care (01) ==
LOC: RAD 07:32
PROVIDERS: PCP Family Medicine; Visit Provider Family Medicine
DX: Z12.31 Encounter for screening mammogram for malignant neoplasm of breast (principal)
CPT/HCPCS: 77063; 77067

== ENCOUNTER 2022-03-05 07:16 | Outpatient (CLI) | payer MEDICARE, MEDICAID, SELFPAY ==
--- NOTE | 2022-03-05 07:42 | NM_ITS ---
WS: [id number] NUCLEAR MEDICINE GASTRIC STUDY CLINICAL INFORMATION: gastroparesis TECHNIQUE: Following oral ingestion of cooked egg mixed with 1.07 mCi technetium 99m sulfur colloid, anterior images of the stomach were obtained over the course of 90 minutes. Activity curve was perfor med over the course of 90 minutes with linear regression analysis. COMPARISON: None. FINDINGS: Evidence of delayed gastric emptying compatible with gastroparesis. Only 40% gastric emptying at 2 ho urs. T1 half gastric emptying is 163 minutes. IN/[place] [id number] IMPRESSION: Findings of delayed delayed gastric emptying compatible with gastroparesis. *Normal median T1 half 90 minutes for solid egg meal (45-110 minutes). Delayed gastric retention is defined as 90% retained at 1 hour, 60% at 2 hour s, 30% at 3 hours, and 10% at 4 hours (normal percent gastric retention is 37-9 0% at 1 hour, 30-60% at 2 hours, and 0-10% at 4 hours).
== END 2022-03-05 07:17 | disposition home or self-care (01) ==
PROVIDERS: PCP Family Medicine; Visit Provider Internal Medicine
DX: K31.84 Gastroparesis (principal); R11.10 Vomiting, unspecified
CPT/HCPCS: 78264; A9541

== ENCOUNTER 2022-03-13 23:00 | Emergency (ER) | payer MEDICARE, MEDICAID, SELFPAY ==
[2022-03-13 23:24] VITALS: BP 107/63; PULSE 80; RESP 20; TEMP 36.1; O2SAT 94; BMI 27.4
--- NOTE | 2022-03-13 23:28 | XRR_ITS ---
PROCEDURE INFORMATION: Exam: XR Chest Exam date and time: 03/14/2022 12:05 AM Age: 66 years old Clinical indication: Cough; Additional info: Cough, chest congestion. Unrelenting cough TECHNIQUE: Imaging protocol: Radiologic exam of the chest. Views: 1 view. COMPARISON: CR XR chest 1V portable [id number] 02/23/2022 1:51 PM FINDINGS: Lungs: Hazy opacities are seen in the left lower hemithorax compatible with a left basilar pneumonia. Pleural spaces: Unremarkable. No pleural effusion. No pneumothorax. Heart/Mediastinum: Unremarkable. No cardiomegaly. Bones/joints: Unremarkable. XR/XR chest 1V portable [id number] IMPRESSION: 1. Hazy opacities in the left lung base compatible with a left basilar pneumonia.
--- NOTE | 2022-03-13 23:56 | ECG_ITS ---
[facility] Test Date: 2022-03-14 Pat Name: Chelsea Ruvalcaba Department: Room: Gender: Female Fiberglass Laminator: : 1955 Requested By: Janice Abdi Order Number: [id number] Tripp MD: Yris Whiting M.D. Measurements Intervals [place] Rate: 64 P: 20 HI: 233 QRS: -28 QRSD: 94 T: 81 QT: 430 QTc: 445 Interpretive Statements SINUS RHYTHM WITH FIRST DEGREE AV BLOCK BORDERLINE LEFT AXIS DEVIATION [QRS AXIS < -20] NONSPECIFIC T-WAVE ABNORMALITY Compared to ECG 02/23/2022 15:35:18 No significant changes Electronically Signed On 03-14-2022 19:03:00 CDT by Yris Whiting M.D. [email or web address]
[2022-03-13 23:57] VITALS: BP 107/60; PULSE 74; RESP 17; O2SAT 88
--- NOTE | 2022-03-13 23:59 | ED_ITS ---
HPI - COVID General: Chief Complaint: COVID symptoms Stated Complaint: Coughing Time Seen by Provider: 03/13/22 23:55 Source: patient Mode of arrival: ambulatory Limitations: no limitations Triage information: Has fever, cough or shortness of breath . No known COVID + exposure last 14 days History of Present Illness: 66-year-old female states she has been having a worsening cough over the last 2 days. States she is had some mild dyspnea she is also lost her taste and smell. She states she believes she likely has COVID. States she been having some burning pain in her chest with her cough patient is in no distress here denies any worsening proving factors denies any fever denies any vomiting or diarrhea. COVID 19 common symptoms: positive non-productive cough and dyspnea; negative fever(s), chills, body aches, headache(s), throat pain, nausea, vomiting or diarrhea COVID 19 other sytmptoms: positive chest pain COVID Results: SARS-CoV-2 Antigen (Rapid) Negative (Negative) 03/14/22 00:08 SARS-CoV-2 RNA (RT-PCR) Not detected (NOT DETECTED) 07/04/21 0 7:34 Nasal/Oral Coronavirus 2019 PCR Not detected 11/24/20 15:47 SARS-CoV-2 (PCR) Pending 03/14/22 01:25 Coronavirus Type 229E (PCR) Pending 03/14/22 01:25 Review of Systems Const: Denies: fever(s), chills, body aches or change in appetite Eyes: Denies: blurry vision or eye discomfort ENMT: Denies: throat pain or dental pain Card: Reports: chest pain Resp: Reports: dyspnea and non-productive cough GI: Denies: abdominal pain, nausea, vomiting or diarrhea : Denies: dysuria Musc: Denies: neck pain or back pain Skin/Breast: Denies: rash Neuro: Denies: headache(s) Psych: Denies: depression Anders/Lymph: Denies: easy bruising All/Imm: Denies: urticaria PFSH ED PFSH: Medical History Acute exacerbation of chronic obstructive pulmonary disease Anxiety Cataract Chronic cough Chronic cough Depression Diabetes mellitus Diabetic neuropathy Fibromyalgia GERD (gastroesophageal reflux disease) Hyperlipidemia Hypertension Hypotension Hypoxia Idiopathic Parkinson's disease Insomnia Paroxysmal supraventricular tachycardia Pneumonia SVT (supraventricular tachycardia) TMJ (temporomandibular joint disorder) Tremor Trochanteric bursitis of right hip Surgical History H/O dilation and curettage H/O tubal ligation History of appendectomy History of cholecystectomy History of hysterectomy History of neck surgery Hx of cataract surgery Family History Grandmother Diabetes Social History Smoking and tobacco status: never smoked Second hand smoke exposure: Yes Alcohol intake: never Lives independently: Yes Household members: spouse Marital status: Current occupational status: disabled History of recent travel: No Current gender identity: Female Physical Exam Const: COMMON NORMALS: no acute distress, patient oriented x3 and healthy appearing HENMT: COMMON NORMALS: normocephalic and atraumatic HEAD & SCALP: normocephalic and atraumatic Eye: COMMON NORMALS: Equal, round and reactive pupils present and EOMs intact bilaterally PUPIL: Yes Equal, round and reactive pupils present Neck/C-Spine: COMMON NORMALS: full ROM and supple Chest: COMMONS NORMALS: normal inspection of the chest and normal palpation of entire chest wall Resp: COMMON NORMALS: normal respiratory effort, No retractions, No use of accessory muscles and clear to auscultation bilaterally AUSCULTATION: clear to auscultation bilaterally Cardio: COMMON NORMALS: regular rate, regular rhythm and No murmurs present (Cardio) RATE: regular rate RHYTHM: regular rhythm GI: COMMON NORMALS: Normal to inspection, nondistended, normoactive bowel sounds present, Soft to palpation, non-tender and no masses PALPATION: Yes Soft to palpation Extremity: COMMON NORMALS: normal to inspection and full ROM Neuro: COMMON NORMALS: patient oriented x3, moves all extremities and no focal motor deficits Psych: COMMON NORMALS: mental status grossly normal, Normal thought process present and cooperative THOUGHT PROCESS: Normal thought process present Skin: COMMON NORMALS: no rashes or lesions noted and no wounds GENERAL SKIN EXAM: no rashes or lesions noted Course Vital Signs: Vital signs: Vital Signs Temperature 97.0 F L 03/13/22 23:24 Pulse Rate 82 08/07/22 01:31 Respiratory Rate 16 03/14/22 01:28 Blood Pressure 107/60 03/13/22 23:57 Pulse Oximetry 96 03/14/22 01:28 Oxygen Delivery Me thod 03/14/22 01:28 Oxygen Flow Rate 2 03/14/22 01:28 MDM - COVID Medical Decision Making Patient presents here with cough along with dyspnea x-ray shows a left lower lobe pneumonia. Patient is in no distress here does have some mild hypoxia we will place her on home oxygen 2 L we will start her on doxycycline she is to follow-up with her PCP in 2 to 4 days and return if worsening she understands and agrees to plan. Lab Data : 03/14/22 01:25 03/14/22 01:25 Radiology Impressions Chest X-Ray 03/13/22 23:28 IMPRESSION: 1. Hazy opacities in the left lung base compatible with a left basilar pneumonia. Laboratory Results WBC 8.4 10^3/uL (4.0-10.0) 03/14/22 01:25 RBC 4.27 10^6/uL (4.1-5.3) 03/14/22 01:25 Hgb 12.7 g/dL (11.5-15.3) 03/14/22 01:25 Hct 40.0 % (37.0-47.0) 03/14/22 01:25 MCV 93.7 fl (81-99) 03/14/22 01:25 MCH 29.7 pg (28.0-34.0) 03/14/22 01:25 MCHC 31.8 g/dL (30.0-36.0) 03/14/22 01:25 RDW 13.3 % (12.1-15.1) 03/14/22 01:25 Plt Count 189 10^3/cmm (130-400) 03/14/22 01:25 MPV 11.1 fL (7.4-10.4) H 03/14/22 01:25 Neut % (Auto) 64.9 % 03/14/22 01:25 Lymph % (Auto) 24.9 % 03/14/22 01:25 [place] % (Auto) 4.2 % 03/14/22 01:25 Eos % (Auto) 5.2 % 03/14/22 01:25 Baso % (Auto) 0.4 % 03/14/22 01:25 Neut # (Auto) 5.45 10^3/uL (1.8-7.7) 03/14/22 01:25 Lymph # (Auto) 2.1 10^3/uL (0.8-4.8) 03/14/22 01:25 [place] # (Auto) 0.4 10^3/uL (0.2-0.9) 03/14/22 01:25 Eos # (Auto) 0.4 10^3/uL (0.0-0.8) 03/14/22 01:25 Baso # (Auto) 0.0 10^3/uL (0.0-0.1) 03/14/22 01:25 Nucleated RBC % (auto) 0 % 03/14/22 01:25 Nucleated RBCs # 0.0 /100WBC 03/14/22 01:25 Sodium 142 mmol/L (136-145) 03/14/22 01:25 Potassium 3.5 mmol/L (3.5-5.1) 03/14/22 01:25 Chloride 103 mmol/L (98-107) 03/14/22 01:25 Carbon Dioxide 25 mmol/L (22-29) 03/14/22 01:25 Anion Gap 17.5 (5-19) 03/14/22 01:25 BUN 9 mg/dL (8-23) 03/14/22 01:25 Creatinine 0.6 mg/dL (0.5-0.9) 03/14/22 01:25 GFR Calculation 99.7 mL/min (90-130) 03/14/22 01:25 Glucose 119 mg/dL (65-115) H 03/14/22 01:25 Calculated Osmolality 294 mOsm/kg (285-295) 03/14/22 01:25 Calcium 8.6 mg/dL (8.5-10.5) 03/14/22 01:25 SARS-CoV-2 Ag (Rapid) Negative (Negative) 03/14/22 00:08 SARS-CoV-2 Antigen (Rapid) Negative (Negative) 03/14/22 00:08 SARS-CoV-2 RNA (RT-PCR) Not detected (NOT DETECTED) 11/27/21 0 7:34 Nasal/Oral Coronavirus 2019 PCR Not detected 11/24/20 15:47 SARS-CoV-2 (PCR) Pending 03/14/22 01:25 Coronavirus Type 229E (PCR) Pending 03/14/22 01:25 EKG Data EKG 1: I personally reviewed and interpreted this EKG as follows: EKG interpretation date: 03/14/22 EKG interpretation time: 00:06 Interpretation: nsr hr [address] or t wave abnormalities qrs 94 qtc 439 Discharge Plan Discharge Patient Disposition: Home Clinical Impression: Pneumonia Qualifiers: Pneumonia type: due to unspecified organism Laterality: left Lung location: lower lobe of lung Qualified Code(s): J18.9 - Pneumonia, unspecified organism Condition: Stable Prescriptions: New doxycycline hyclate 100 mg tablet 100 mg PO BID 7 Days Qty: 14 0RF No Action Belsomra 10 mg tablet 10 mg PO DAILY@21 pregabalin [Lyrica] 100 mg capsule 100 mg PO BID digoxin [Lanoxin] 125 mcg (0.125 mg) tablet 125 mcg PO DAILY@07 carbidopa-levodopa 50-200 mg tablet extended release 2 tab PO BID@07,16 Lantus Solostar U-100 Insulin 100 unit/mL (3 mL) insulin pen 20 unit SUBCUT DAILY@21 albuterol sulfate [ProAir HFA] 90 mcg/actuation HFA aerosol inhaler 2 puff INHALATION QID PRN (Reason: Shortness Of Breath) alprazolam 1 mg tablet 1 mg PO TID PRN (Reason: Anxiety) flecainide 50 mg tablet 50 mg PO Q12H Rx Instructions: @07:00,16:00 codeine-guaifenesin 10-100 mg/5 mL liquid 10 ml PO Q6H PRN (Reason: cough) Qty: 1200 3RF metformin 500 mg tablet extended release 24 hr 500 mg PO DAILY@21 omeprazole 20 mg capsule,delayed release(DR/EC) 20 mg PO BID@0700,1900 Qty: 60 3RF Symbicort 80-4.5 mcg/actuation HFA aerosol inhaler 2 puff INHALATION BID Qty: 10.2 6RF rosuvastatin 10 mg tablet 10 mg PO DAILY@07 acetaminophen [Tylenol Extra Strength] 500 mg Tablet 1,000 mg PO DAILY PRN (Reason: Pain) amlodipine 5 mg tablet 5 mg PO QAM dicyclomine 20 mg tablet 20 mg PO TID paroxetine HCl 30 mg tablet 30 mg PO DAILY@07 promethazine 25 mg tablet 25 mg PO Q4H PRN (Reason: Nausea And Vomiting) quetiapine 50 mg tablet 50 mg PO DAILY@21 benzonatate 100 mg capsule 100 mg PO TID fluticasone propionate 50 mcg/actuation spray,suspension 1 spray intranasal BID PRN (Reason: Allergy Symptoms) Discharge Orders: Discharge ED (Routine); Ordered 03/14/22 Ordered By: Janice Abdi Other Ambulatory Orders: DME: Oxygen (Order) Location: None Selected Ordered By: Janice Abdi Referrals: Mannie Hart MD [Primary Care Provider] - 1-3 days Discharge Diet: Advance as tolerated Discharge Activity: Resume usual activity Patient Instructions: Pneumonia (ED) Coding Level of Care Code ED Lace Roller for Zaida Fwd Exam Comprehensive
[2022-03-14] VITALS (9 sets, daily range): BP systolic 102; BP diastolic 63; PULSE 68–88; RESP 16–22; O2SAT 88–96
[2022-03-14] MEDS: ipratropium-albuterol 3 mL Neb INHALATION (00:12)
[2022-03-14 00:37] LABS: SARS Covid-2 Antigen Negative (Negative)
[2022-03-14] MEDS: levalbuterol 1.25 mg/3 mL Neb INHALATION (01:19)
[2022-03-14] MEDS: doxycycline 100 mg Tablet PO (01:27)
[2022-03-14] MEDS: dexamethasone 10 mg/mL INJ IM (01:27)
[2022-03-14 01:32] LABS: Basophils % 0.4 %; Eosinophils # 0.4 10^3/uL (0.0-0.8); Eosinophils % 5.2 %; Hemoglobin 12.7 g/dL (11.5-15.3); Lymphocytes # 2.1 10^3/uL (0.8-4.8); Lymphocytes % 24.9 %; Mean Corpuscular HGB Conc 31.8 g/dL (30.0-36.0); Mean Corpuscular Hemoglobin 29.7 pg (28.0-34.0); Mean Corpuscular Volume 93.7 fl (81-99); Mean Platelet Volume 11.1 fL (7.4-10.4); Monocytes # 0.4 10^3/uL (0.2-0.9); Monocytes % 4.2 %; Neutrophils # 5.45 10^3/uL (1.8-7.7); Neutrophils % 64.9 %; Nucleated Red Blood Cells % 0 %; Platelet Count 189 10^3/cmm (130-400); Red Blood Count 4.27 10^6/uL (4.1-5.3); Red Cell Distribution Width 13.3 % (12.1-15.1); White Blood Count 8.4 10^3/uL (4.0-10.0)
[2022-03-14 01:52] LABS: Anion Gap 17.5 (5-19); Blood Urea Nitrogen 9 mg/dL (8-23); Calcium 8.6 mg/dL (8.5-10.5); Carbon Dioxide 25 mmol/L (22-29); Chloride 103 mmol/L (98-107); Glomerular Filtration Rate 99.7 mL/min (90-130); Glucose 119 mg/dL (65-115); Osmolality Calculated 294 mOsm/kg (285-295); Potassium 3.5 mmol/L (3.5-5.1); Sodium 142 mmol/L (136-145)
[2022-03-14 04:58] LABS: Adenovirus Not Detected (NOT DETECT); Chlamydia Pneumoniae Not Detected (NOT DETECT); Coronavirus 229E,HKU1,NL63,OC4 Not Detected (NOT DETECT); Human Metapneumovirus Not Detected (NOT DETECT); Human Rhinovirus/Enterovirus Not Detected (NOT DETECT); Influenza A Not Detected (NOT DETECT); Influenza A H1 Not Detected (NOT DETECT); Influenza A H1-2009 Not Detected (NOT DETECT); Influenza A H3 Not Detected (NOT DETECT); Influenza B Not Detected (NOT DETECT); Mycoplasma Pneumoniae Not Detected (NOT DETECT); Parainfluenza Virus Type 1 Not Detected (NOT DETECT); Parainfluenza Virus Type 2 Not Detected (NOT DETECT); Parainfluenza Virus Type 3 Not Detected (NOT DETECT); Parainfluenza Virus Type 4 Not Detected (NOT DETECT); Respiratory Syncytial Virus A Not Detected (NOT DETECT); Respiratory Syncytial Virus B Not Detected (NOT DETECT); SARS-COV-2 Not Detected (NOT DETECT)
== END 2022-03-14 03:01 | disposition home or self-care (01) ==
PROVIDERS: Nurse Practitioner Family; Emergency Provider Emergency Medicine; PCP Family Medicine
DX: J18.9 Pneumonia, unspecified organism (principal); Z79.84 Long term (current) use of oral hypoglycemic drugs; Z79.4 Long term (current) use of insulin; J44.9 Chronic obstructive pulmonary disease, unspecified; E11.40 Type 2 diabetes mellitus with diabetic neuropathy, unspecified; E78.5 Hyperlipidemia, unspecified; I10 Essential (primary) hypertension; G20 Parkinson's disease; Z77.22 Contact with and (suspected) exposure to environmental tobacco smoke (acute) (chronic); Z20.822 Contact with and (suspected) exposure to COVID-19
CPT/HCPCS: 71045; 80048; 85025; 87426; 87635; 93005; 94640; 96374; 99285; J1100; J7614

== ENCOUNTER 2022-03-24 13:22 | Outpatient (CLI) | payer MEDICARE, MEDICAID, SELFPAY ==
--- NOTE | 2022-03-24 13:33 | MM_ITS ---
WS: [id number] Right breast diagnostic 3D tomosynthesis digital mammogram, 03/24/2022 Clinical Data: ABNORMAL MAMMO Comparison: 03/02/2022, 02/23/2021, 12/28/2016. Findings: Right breast spot compression views in CC and MLO projection along with a true ML view were obtained. There was a marker on the upper outer quadrant of the right breast to locate the palpable abnormalit y. No distinct masses or cysts could be seen. There are no secondary signs of carcinoma. MM/[place] [id number] Impression: 1. Negative for abnormal lesion on mammography in the upper outer quadrant of t he right breast. 2. Right breast ultrasound will be performed. BIRADS: 4-Suspicious Finding-Biopsy Should Be Considered FOLLOW UP: See Report The CAD loom checker was used.
--- NOTE | 2022-03-24 13:33 | US_ITS ---
WS: [id number] Right breast ultrasound, 03/24/2022 Clinical Data: ABNORMAL MAMMO Comparison: Mammogram, 03/24/2022, right breast ultrasound, 02/23/2021. Findings: At the 9:00 position 3 cm from the nipple in the right breast there was a simple cyst measuring 0.17 x 0.26 x 0.30 cm. At the 10:00 position 2 cm from the nipple was a ill-defined mixed echogenic lesion measuring 0.54 x 0.62 x 0.83 cm. The borders are not well-defined and irregular.. US/US breast RT limited* [id number] Impression: 1. Lesion measuring 0.83 cm 2 cm from the nipple in the 10:00 position which is suspicious and recommend biopsy. 2. Simple cyst 0.30 cm 3 cm from the nipple in the 9:00 position 3. Recommend biopsy of lesion at the 10:00 position 2 cm from the nipple measur ing 0.83 cm. BIRADS: 4-Suspicious Finding-Biopsy Should Be Considered FOLLOW UP: Biopsy Recommended
== END 2022-03-24 13:23 | disposition home or self-care (01) ==
LOC: RAD 13:24
PROVIDERS: PCP Family Medicine; Visit Provider Family Medicine
DX: R92.8 Other abnormal and inconclusive findings on diagnostic imaging of breast (principal); N63.11 Unspecified lump in the right breast, upper outer quadrant
CPT/HCPCS: 76642; 77061

== ENCOUNTER 2022-04-28 07:59 | Outpatient (CLI) | payer MEDICARE, MEDICAID, SELFPAY ==
--- NOTE | 2022-04-28 08:10 | US_ITS ---
WS: [id number] ULTRASOUND RIGHT BREAST HISTORY: Patient presents for biopsy of a RIGHT breast mass at 10:00. COMPARISON: Prior imaging dated 03/24/2022, 02/23/2021, 03/24/2022 and 03/02/2022 reviewed. TECHNIQUE: 2-D and Doppler. Previously described abnormality within the RIGHT breast at 10:00 is not identified today. There is n o shadowing identified or hypoechoic mass. During real-time imaging there is a normal appearance to t he soft tissues. The patient described a palpable abnormality. This palpable abnormality does not cor respond to the previously imaged area. There is no mass or soft tissue abnormality in the region of t he palpable mass. US/US breast RT limited* [id number] IMPRESSION: BI-RADS: 3-Probably Benign FOLLOW-UP: 6 Month Follow-up There is no identifiable suspicious mass at 10:00 for which biopsy could be per formed today. This was described to the patient. Suggest 6 month RIGHT breast u ltrasound follow-up in the upper outer quadrant.
== END 2022-04-28 08:00 | disposition home or self-care (01) ==
LOC: RAD 08:01
PROVIDERS: PCP Family Medicine; Visit Provider Family Medicine
DX: R92.8 Other abnormal and inconclusive findings on diagnostic imaging of breast (principal)
CPT/HCPCS: 76642

== ENCOUNTER → 2022-06-09 13:34 | Outpatient (BNVA) | payer MEDICARE, MEDICAID, SELFPAY | PROVIDERS: PCP Family Medicine; Referring Provider Nurse Practitioner Family; Visit Provider Orthopaedic Surgery | DX: M25.551 Pain in right hip (principal) | CPT/HCPCS: 73502; 99202 ==

== ENCOUNTER → 2022-06-14 10:55 | Outpatient (BNVA) | payer MEDICARE, MEDICAID, SELFPAY | PROVIDERS: PCP Family Medicine; Visit Provider Internal Medicine Pulmonary Disease | DX: R06.02 Shortness of breath; R05.3 Chronic cough; T78.40XA Allergy, unspecified, initial encounter; G20 Parkinson's disease; R44.3 Hallucinations, unspecified; G47.9 Sleep disorder, unspecified | CPT/HCPCS: 82785; 85025; 86003; 99214 ==

== ENCOUNTER → 2022-08-12 14:37 | Outpatient (BNVA) | payer MEDICARE, MEDICAID, SELFPAY | PROVIDERS: PCP Family Medicine; Visit Provider Internal Medicine | DX: R07.9 Chest pain, unspecified (principal); I47.1 Supraventricular tachycardia; Q24.5 Malformation of coronary vessels; I10 Essential (primary) hypertension | CPT/HCPCS: 99213 ==

== ENCOUNTER 2022-10-20 11:17 | Outpatient (CLI) | payer MEDICARE, MEDICAID, SELFPAY ==
--- NOTE | 2022-10-20 | US_ITS ---
WS: [id number] ULTRASOUND RIGHT BREAST HISTORY: 6 MONTH F/U COMPARISON: 02/23/2021, 03/24/2022 and 04/28/2022 TECHNIQUE: 2-D and Doppler. Very subtle area of shadowing in the RIGHT breast at 10:00. No increased vascularity. This area of co ncern that was previously evaluated appears less distinct today. No increase in size since at least . US/US breast RT limited* [id number] IMPRESSION: BI-RADS: 3-Probably Benign FOLLOW-UP: 6 Month Follow-up Patient should return in 6 months for annual mammography. At that time ultrasou nd should also be obtained of the RIGHT breast at 10:00 to evaluate for any int erval change.
== END 2022-10-20 11:18 | disposition home or self-care (01) ==
PROVIDERS: PCP Family Medicine; Visit Provider Nurse Practitioner Family
DX: R92.8 Other abnormal and inconclusive findings on diagnostic imaging of breast (principal)
CPT/HCPCS: 76642

== ENCOUNTER → 2022-12-23 09:42 | Outpatient (BNVA) | payer MEDICARE, MEDICAID, SELFPAY | PROVIDERS: PCP Family Medicine; Visit Provider Internal Medicine Pulmonary Disease | DX: J82.83 Eosinophilic asthma (principal); R06.02 Shortness of breath; G20 Parkinson's disease; M25.641 Stiffness of right hand, not elsewhere classified; M25.642 Stiffness of left hand, not elsewhere classified; R05.3 Chronic cough; R44.3 Hallucinations, unspecified; G47.9 Sleep disorder, unspecified | CPT/HCPCS: 36415; 85651; 86038; 86140; 86200; 86235; 86431; 99214 ==

== ENCOUNTER → 2023-02-10 15:19 | Outpatient (BNVA) | payer MEDICARE, MEDICAID, SELFPAY | PROVIDERS: PCP Family Medicine; Visit Provider Internal Medicine | DX: R07.89 Other chest pain (principal); I47.1 Supraventricular tachycardia; Q24.5 Malformation of coronary vessels; I10 Essential (primary) hypertension | CPT/HCPCS: 99214 ==

== ENCOUNTER → 2023-02-16 10:34 | Outpatient (BNVA) | payer MEDICARE, MEDICAID, SELFPAY | PROVIDERS: PCP Family Medicine; Referring Provider Internal Medicine Pulmonary Disease; Visit Provider Internal Medicine Rheumatology | DX: M19.041 Primary osteoarthritis, right hand (principal); M19.071 Primary osteoarthritis, right ankle and foot; Z79.899 Other long term (current) drug therapy | CPT/HCPCS: 73130; 73630; 99204 ==

== ENCOUNTER → 2023-04-19 13:00 | Outpatient (BNVA) | payer MEDICARE, MEDICAID, SELFPAY | PROVIDERS: PCP Family Medicine; Visit Provider Internal Medicine Rheumatology | DX: Z79.899 Other long term (current) drug therapy (principal); M19.90 Unspecified osteoarthritis, unspecified site; M06.041 Rheumatoid arthritis without rheumatoid factor, right hand; M06.042 Rheumatoid arthritis without rheumatoid factor, left hand; R76.8 Other specified abnormal immunological findings in serum; Z71.85 Encounter for immunization safety counseling | CPT/HCPCS: 99214 ==

== ENCOUNTER 2023-04-25 14:24 | Outpatient (CLI) | payer MEDICARE, MEDICAID, SELFPAY ==
--- NOTE | 2023-04-25 14:35 | MM_ITS ---
WS: [id number] DIAGNOSTIC BILATERAL DIGITAL BREAST TOMOSYNTHESIS MAMMOGRAPHY WITH CAD RIGHT breast ultrasound, limited HISTORY: 6MFU COMPARISON: 10/20/2022 ultrasound, diagnostic mammography 03/24/2022 TECHNIQUE: Bilateral craniocaudad, mediolateral oblique, and mediolateral views are submitted with to [email or web address] and SM. Spot compression RIGHT CC and MLO. Computer aided detection utilized. Breast composition: There are scattered areas of fibroglandular density. No abnormalities are identif ied in the upper outer quadrant of the RIGHT breast in the area of discomfort. No mass identified and no palpable nodule indicated by the patient. Benign arterial calcifications. RIGHT breast ultrasound, limited. Reidentified is the hypoechoic mass in the RIGHT breast near the 9-10 o'clock axis. This is not defin itely seen by mammography. There is some associated shadowing. No significant increase in size. IMPRESSION: MM/[place] [id number] BI-RADS: 4-Suspicious Finding-Biopsy Should Be Considered FOLLOW UP: Biopsy Recommended Ultrasound-guided biopsy recommend hypoechoic mass RIGHT breast at 9-10 o'clock . This mass persists although has not significantly changed. Suggest biopsy at this time.
== END 2023-04-25 14:25 | disposition home or self-care (01) ==
LOC: RAD 14:27
PROVIDERS: PCP Family Medicine; Visit Provider Family Medicine
DX: R92.8 Other abnormal and inconclusive findings on diagnostic imaging of breast (principal); N63.11 Unspecified lump in the right breast, upper outer quadrant
CPT/HCPCS: 76642; 77062; G0279

== ENCOUNTER 2023-05-11 10:50 | Outpatient (CLI) | payer MEDICARE, MEDICAID, SELFPAY ==
--- NOTE | 2023-05-11 10:55 | US_ITS ---
WS: [id number] ULTRASOUND RIGHT BREAST HISTORY: ABNORMAL MAMMO COMPARISON: 04/25/2023 and 10/20/2022 TECHNIQUE: 2-D and Doppler. Patient presents for biopsy of the hypoechoic area in the RIGHT breast at 10:00. During real-time obs ervation there is no reproducible or identifiable mass of any concern. This shadowing is probably fro m Sher's ligaments within the breast. Also, this does not correspond to the area of concern indicat ed by the patient which is palpable. IMPRESSION: US/US breast RT limited* [id number] BI-RADS: 2-Benign FOLLOW-UP: 1 Year Follow-up Return to screening mammography. Patient screening mammogram should be obtained in April 2024. If patient's palpable area within the RIGHT breast becomes more prominent or concerning reevaluation by ultrasound at that time can be per formed. I did reevaluate the palpable area in the RIGHT breast and so no abnorm ality.
== END 2023-05-11 10:51 | disposition home or self-care (01) ==
PROVIDERS: PCP Family Medicine; Visit Provider Family Medicine
DX: R92.8 Other abnormal and inconclusive findings on diagnostic imaging of breast (principal)
CPT/HCPCS: 76642